=== PATIENT | female | born 1995 | race Caucasian/White ===

== ENCOUNTER 2020-03-12 09:02 | Inpatient (IN) ==
[2020-03-12] MEDS ORDERED: OXYTOCIN 30 UNITS/500 ML BAG IV PRN ×2 (09:22→09:24)
--- NOTE | 2020-03-12 09:30 | History & Physical Report ---
Date of Service March 12, 2020 Assessment & Plan (1) Spontaneous rupture of amniotic membranes: 24 yo at 40 wks with SROM this morning at 5 am VSS Afebrile GBS negative Regular ctxs but does not feel them Discussed augmentation with pitocin, she agrees Plan to admit, monitor, IVF bolus, labs and then reevaluate History of Present Illness Primary Care Provider: NO PCP Patient is a 24 yo at 40 wks who has been leaking clear fluids since 5 am No VB No ctxs / abd pain/ fever/ chills/ N&V +FM's Her has been uncomplicated GBS negative Patient History Social History (Updated 03/12/20 @ 09:26 by Maurilio Gilman MD) Smoking Status: Never smoker Hx Alcohol Use: No Hx Substance Use: No 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 No h/o STD's Review of Systems All systems reviewed & are unremarkable except as noted in HPI & below Physical Exam Constitutional: WD/WN, vitals as above well developed and well nourished Comfortable Gastrointestinal (Abdomen): normal bowel sounds, soft, nontender, no hepatosplenomegaly (gravid) Genitourinary: normal external appearance Manual OB Exam: + cervical dilation fingertip (0.5 cm), + cervical effacement 70%, + station -2 and + amniotic fluid (grossly leaking) nitrazine positive OB Exam Monitor Tracing: + external uterine monitor used (ctxs q 2-3 min, she does not feel them) and + category I (minimal to moderate variability, no accels yet, no decels) Results & Data Vital Signs (Past 12 Hours) Vital Signs Pulse BP 03/12/20 09:08 86 132/89 Code Status & VTE Plan VTE Prophylaxis Plan VTE Prophylaxis will be ordered: Yes
[2020-03-12 09:50] LABS: Hematocrit (blood only) 35.4 % (37-47); Hemoglobin 12.1 g/dL (12.0-16.0); Mean Corpuscular Hemoglobin 31.4 pg (25-34); Mean Corpuscular Volume 91.9 fL (80-100); Mean Platelet Volume 10.2 fL (7.4-10.4); Platelet Count 258 K/uL (130-400); RDW Coefficient of Variation 13.3 % (11.5-14.5); RDW Standard Deviation 44.4 fL (36.4-46.3); Red Blood Count 3.85 M/uL (4.2-5.4); White Blood Count 9.53 K/uL (4.8-10.8)
[2020-03-12] MEDS: LACTATED RINGER'S 1,000 ML IV PRN ×3 (09:57→19:34)
[2020-03-12 10:02] LABS: Mean Corpuscular Hgb Conc 34.2 g/dL (32-36)
[2020-03-12 10:09] LABS: Alanine Aminotransferase 27 U/L (12-78); Albumin Level 2.8 gm/dl (3.4-5.0); Aspartate Aminotransferase 19 U/L (15-37); BUN Creatinine Ratio 9.2 (10-20); Blood Urea Nitrogen 7 mg/dl (7-18); Calcium 9.9 mg/dl (8.5-10.1); Carbon Dioxide 24 mmol/L (21-32); Chloride 107 mmol/L (98-107); Est GFR (African American) 121.6; Est GFR (Non-African American) 104.9; Glucose 73 mg/dl (70-99); Potassium 3.9 mmol/L (3.5-5.1); Sodium 137 mmol/L (136-145)
[2020-03-12 10:12] LABS: Albumin Globulin Ratio 0.7 (0.9-2); Alkaline Phosphatase 226 U/L (45-117); Bilirubin,Total 0.4 mg/dl (0.2-1); Globulin 3.9 gm/dl (2.5-4.0); Total Protein 6.7 gm/dl (6.4-8.2)
[2020-03-12] MEDS ORDERED: PATIENT'S ALLERGY INFO NEEDS ENTERED SCH (10:45)
--- NOTE | 2020-03-12 14:54 | Obstetrical Progress Note ---
Date of Service March 12, 2020 Assessment & Plan Admission and Anticipated Discharge Date Admission Date: March 12, 2020 Subjective Patient is reevaluated She feels well, pain is minimal, 2-3/10, still leaking clear fluids FHR categ I [place]: cytxs q 2-3 min, pitocin is at 8 miu/min VE; tight 1 cm/ 70%/ -1, central Continue to monitor closely SCD's Results & Data ([facility]) Vital Signs (Past 12 Hours) Vital Signs Temp Pulse Resp BP 03/12/20 14:20 18 03/12/20 14:17 93 H 131/85 03/12/20 14:15 37.0 C 18 03/12/20 13:50 18 03/12/20 13:20 18 03/12/20 13:01 37.1 C 86 20 138/84 03/12/20 12:50 18 03/12/20 12:20 18 03/12/20 12:05 75 18 133/79 03/12/20 11:50 18 03/12/20 11:30 18 03/12/20 11:20 18 03/12/20 11:01 80 119/76 03/12/20 11:00 37.1 C 18 03/12/20 10:28 18 03/12/20 10:11 75 123/72 03/12/20 09:58 78 132/81 03/12/20 09:50 18 03/12/20 09:08 86 132/89 03/12/20 09:07 37.0 C 18
[2020-03-12] MEDS: BUTORPHANOL TARTRATE 1 MG/ML VIAL IV PRN ×2 (16:04→19:25)
--- NOTE | 2020-03-12 21:05 | Obstetrical Progress Note ---
Date of Service March 12, 2020 Assessment & Plan Admission and Anticipated Discharge Date Admission Date: March 12, 2020 Subjective Patient is reevaluated She feels pain, She received Stadol IVX2 did not help much VE: 2-3 cm/ 80%/ -1, central She declined epidural for pain Discussed pain management during labor and safety of epidural She will think about it Results & Data ([facility]) Vital Signs (Past 12 Hours) Vital Signs Temp Pulse Resp BP Pulse Ox 03/12/20 20:59 82 99 03/12/20 20:54 78 100 03/12/20 20:49 63 97 03/12/20 20:44 82 96 03/12/20 20:39 81 92 03/12/20 20:34 77 100 03/12/20 20:29 91 H 100 03/12/20 20:24 87 100 03/12/20 20:19 72 96 03/12/20 20:14 88 93 03/12/20 20:09 84 93 03/12/20 20:04 87 97 03/12/20 20:00 18 03/12/20 19:59 81 85 L 03/12/20 19:54 92 H 96 03/12/20 19:51 76 139/86 03/12/20 19:49 101 H 96 03/12/20 19:45 85 116/73 03/12/20 19:44 81 94 03/12/20 19:39 88 124/74 95 03/12/20 19:35 68 128/76 03/12/20 19:34 94 H 92 03/12/20 19:29 75 99 03/12/20 19:28 72 130/73 03/12/20 19:24 66 98 03/12/20 19:06 36.9 C 83 18 133/80 03/12/20 18:50 18 03/12/20 18:29 18 03/12/20 18:28 88 121/77 03/12/20 18:20 18 03/12/20 17:50 18 03/12/20 17:41 37.1 C 80 18 126/76 03/12/20 17:20 18 03/12/20 16:53 67 18 118/75 03/12/20 16:50 18 03/12/20 16:20 18 03/12/20 16:08 81 118/70 03/12/20 16:04 18 03/12/20 15:56 18 03/12/20 15:50 18 03/12/20 15:20 18 03/12/20 15:01 81 142/81 H 03/12/20 15:00 37.1 C 18 03/12/20 14:50 18 03/12/20 14:49 18 03/12/20 14:20 18 03/12/20 14:17 93 H 131/85 03/12/20 14:15 37.0 C 18 03/12/20 13:50 18 03/12/20 13:20 18 03/12/20 13:01 37.1 C 86 20 138/84 03/12/20 12:50 18 03/12/20 12:20 18 03/12/20 12:05 75 18 133/79 03/12/20 11:50 18 03/12/20 11:30 18 03/12/20 11:20 18 03/12/20 11:01 80 119/76 03/12/20 11:00 37.1 C 18 03/12/20 10:28 18 03/12/20 10:11 75 123/72 03/12/20 09:58 78 132/81 03/12/20 09:50 18 03/12/20 09:08 86 132/89 03/12/20 09:07 37.0 C 18
[2020-03-12] MEDS ORDERED: fentaNYL citrate 100 MCG/2 ML VIAL ONE (21:14)
[2020-03-12] MEDS ORDERED: ePHEDrine sulfate 50 MG/ML AMP ONE (21:14)
[2020-03-12] MEDS ORDERED: BUPIVACAINE 0.25% 30 ML VIAL ONE (21:14)
[2020-03-12] MEDS ORDERED: fentaNYL 2MCG/ML ROPIV 1.25MG/ML 100 ML BAG EPI ONE (21:15)
[2020-03-12] MEDS ORDERED: NALBUPHINE HCL INJ 10 MG/ML AMP IV PRN (21:19)
[2020-03-12] MEDS ORDERED: NALOXONE HCL 0.4 MG/1 ML VIAL/CARP IV PRN (21:19)
[2020-03-12] MEDS ORDERED: ePHEDrine sulfate 50 MG/ML AMP IV PRN (21:19)
[2020-03-12] MEDS ORDERED: PROMETHAZINE HCL 6.25 MG in SODIUM CHLORIDE 0.9% 50 ML IV PRN (21:19)
[2020-03-12] MEDS ORDERED: NALOXONE HCL 1 MG in SODIUM CHLORIDE 0.9% 1000ML 1,000 ML IV PRN (21:19)
[2020-03-12] MEDS ORDERED: ONDANSETRON INJ 2 MG/ML 2 ML VIAL IV PRN (21:19)
[2020-03-12] MEDS ORDERED: DiphenhydrAMINE HCL 50 MG/ML VIAL IV PRN (21:19)
--- NOTE | 2020-03-12 21:23 | Anesthesiology Consultation ---
Date of Service March 12, 2020 Assessment & Plan (1) Encounter for pre-operative examination: Chart Review Chart Review: Patient NOT seen in Pre Admission Testing and Acceptable Risk for Labor Epidural Consults Requested none ASA ASA2 Proposed Anesthesia Anesthesia Type: Labor Epidural Risk / Benefits Reviewed With: PT / POA / Parent / Guardian, Accepts Plan and Informed Consent Obtained History Height/Weight Height: 5 ft 7.75 in Weight: 83.915 kg Allergies Allergy/AdvReac Type Severity Reaction Status Date / Time Sulfa (Sulfonamide Allergy Unknown Verified 03/12/20 12:27 Antibiotics) Medications Home Medications Medication Instructions Recorded Confirmed Last Taken vit no.[id number] 1 tab PO HS 03/12/20 03/12/20 03/11/20 22:30 [ Vitamin] Active Medications Generic Name Dose Route Start Last Admin Trade Name Freq PRN Reason Stop Dose Admin Butorphanol Tartrate 1 mg 03/12/20 09:22 03/12/20 19:25 Stadol IV 04/11/20 09:21 1 mg Q3HWA PRN Administration Pain Lactated Ringer's 1,000 mls @ 150 mls/hr 03/12/20 09:22 03/12/20 19:34 Lr IV 03/14/20 09:21 150 mls/hr .Q6H40M PRN Administration L&D Protocol Protocol Oxytocin 30 units in 500 mls @ 14 mls/hr 03/12/20 09:24 03/12/20 16:53 Pitocin IV 03/14/20 09:23 0.84 units/hr .Q24H PRN 14 mls/hr Labor Induction/Augmentation Titration Protocol 0.84 UNITS/HR NPO Date Last Intake of Fluids: 03/12/20 Time Last Intake of Fluids: 21:00 Date Last Intake of Solids: 03/12/20 Time Last Intake of Solids: 07:00 Exercise / Class Metabolic Activity II 4-5 Yardwork/Stairs/Walk up hill Past Anesthesia History No Hx of Anesthesia Complications and No Family Hx of Anesthesia Complications History of PONV No Hx of PONV and No Hx of Motion Sickness Social History Smoking Status: Never smoker Hx Alcohol Use: No Hx Substance Use: No Physical Exam Vital Signs Last Vital Signs Temp 36.8 C 03/12/20 21:03 Pulse 87 03/12/20 21:41 Resp 18 03/12/20 21:03 BP 110/59 L 03/12/20 21:41 Pulse Ox 97 03/12/20 21:39 ENMT Mouth: no dentition abnormality Thyromental Distance: > or= 3.5 Finger Breadths Mallampati Class: II Neck normal visual inspection Respiratory normal respiratory effort Auscultation: lungs clear to auscultation bilaterally Cardiovascular Rate/Rhythm: regular rate and regular rhythm Psychiatric Orientation: alert Testing Laboratory Results 03/12/20 09:34 03/12/20 09:34
[2020-03-12] MEDS: CEFAZOLIN 2000MG 2,000 MG/15 ML SYR IV SCH (22:27)
[2020-03-13] MEDS: LACTATED RINGER'S 1,000 ML IV PRN ×2 (00:23→06:42)
--- NOTE | 2020-03-13 04:40 | Obstetrical Progress Note ---
Date of Service March 13, 2020 Assessment & Plan Admission and Anticipated Discharge Date Admission Date: March 12, 2020 Subjective Patient had epidural for pain and has been comfortable [place] pressure and wanted to push VE; 10/100%/+1, small caput, LOP, has been pushing for the last 4 ctxs FHR 150's with moderate to marked variability Continue to monitor and pushing Results & Data ([facility]) Vital Signs (Past 12 Hours) Vital Signs Temp Pulse Resp BP Pulse Ox 03/13/20 04:34 92 H 97 03/13/20 04:31 37.1 C 88 130/68 03/13/20 04:29 123 H 94 03/13/20 04:24 91 H 97 03/13/20 04:19 97 H 98 03/13/20 04:14 95 H 98 03/13/20 04:10 88 127/74 03/13/20 04:09 96 H 99 03/13/20 04:04 84 96 03/13/20 03:59 90 95 03/13/20 03:56 82 116/67 03/13/20 03:54 93 H 95 03/13/20 03:49 84 97 03/13/20 03:48 96 H 87 L 03/13/20 03:44 90 95 03/13/20 03:39 93 H 111/65 95 03/13/20 03:34 84 95 03/13/20 03:30 18 03/13/20 03:29 92 H 98 03/13/20 03:25 90 116/61 03/13/20 03:24 84 96 03/13/20 03:19 87 98 03/13/20 03:14 95 H 98 03/13/20 03:10 88 120/71 03/13/20 03:09 90 100 03/13/20 03:04 101 H 97 03/13/20 03:01 36.7 C 03/13/20 03:00 18 03/13/20 02:59 108 H 100 03/13/20 02:54 93 H 121/69 100 03/13/20 02:49 90 100 03/13/20 02:44 72 99 03/13/20 02:40 75 117/67 03/13/20 02:39 72 100 03/13/20 02:34 84 96 03/13/20 02:30 18 03/13/20 02:29 81 96 03/13/20 02:26 73 110/58 L 03/13/20 02:24 77 97 03/13/20 02:19 96 H 94 03/13/20 02:14 77 93 03/13/20 02:11 76 106/56 L 03/13/20 02:09 83 96 03/13/20 02:04 80 94 03/13/20 02:00 18 03/13/20 01:59 76 94 03/13/20 01:56 74 92/45 L 03/13/20 01:54 76 94 03/13/20 01:49 82 94 03/13/20 01:44 78 95 03/13/20 01:40 73 112/55 L 03/13/20 01:39 75 97 03/13/20 01:34 89 98 03/13/20 01:30 18 03/13/20 01:29 78 92 03/13/20 01:24 79 106/57 L 93 03/13/20 01:19 80 93 03/13/20 01:14 91 H 96 03/13/20 01:13 37.0 C 03/13/20 01:12 78 107/59 L 03/13/20 01:10 85 101/56 L 03/13/20 01:09 90 96 03/13/20 01:04 79 92 03/13/20 01:00 18 03/13/20 00:59 82 92 03/13/20 00:55 73 123/60 03/13/20 00:54 80 96 03/13/20 00:49 85 97 03/13/20 00:44 77 95 03/13/20 00:41 77 122/71 03/13/20 00:39 88 97 03/13/20 00:34 80 98 03/13/20 00:30 18 03/13/20 00:29 77 98 03/13/20 00:24 76 98 03/13/20 00:19 74 96 03/13/20 00:14 78 99 03/13/20 00:09 82 100/54 L 95 03/13/20 00:04 75 95 03/13/20 00:00 18 03/12/20 23:59 80 94 03/12/20 23:54 77 100/57 L 95 03/12/20 23:49 78 98 03/12/20 23:44 80 99 03/12/20 23:40 72 98/61 L 03/12/20 23:39 82 99 03/12/20 23:34 80 97 03/12/20 23:30 18 03/12/20 23:29 75 99 03/12/20 23:25 82 130/63 03/12/20 23:24 84 100 03/12/20 23:19 74 99 03/12/20 23:14 92 H 100 03/12/20 23:09 88 107/59 L 100 03/12/20 23:07 36.9 C 03/12/20 23:04 106 H 100 03/12/20 23:00 18 03/12/20 22:59 77 100 03/12/20 22:54 83 107/59 L 100 03/12/20 22:49 74 98 03/12/20 22:44 80 99 03/12/20 22:40 78 104/57 L 03/12/20 22:39 78 100 03/12/20 22:34 89 100 03/12/20 22:30 18 03/12/20 22:29 85 100 03/12/20 22:25 80 105/54 L 03/12/20 22:24 86 100 03/12/20 22:19 74 100 03/12/20 22:15 18 03/12/20 22:14 90 100 03/12/20 22:10 77 110/56 L 03/12/20 22:09 79 99 03/12/20 22:04 87 99 03/12/20 22:00 18 03/12/20 21:59 80 100 03/12/20 21:56 18 03/12/20 21:54 93 H 100 03/12/20 21:52 85 113/57 L 03/12/20 21:50 18 03/12/20 21:49 98 H 99 03/12/20 21:45 90 18 108/57 L 03/12/20 21:44 90 98 03/12/20 21:43 83 105/56 L 03/12/20 21:41 87 110/59 L 03/12/20 21:39 107 H 108/58 L 97 03/12/20 21:37 82 116/59 L 03/12/20 21:35 80 122/63 03/12/20 21:34 94 H 97 06/02/20 21:33 79 135/79 03/12/20 21:31 77 129/77 03/12/20 21:29 78 96 03/12/20 21:24 90 96 03/12/20 21:19 90 95 03/12/20 21:14 84 93 03/12/20 21:09 68 100 03/12/20 21:04 72 100 03/12/20 21:03 36.8 C 78 18 139/75 03/12/20 20:59 82 99 03/12/20 20:54 78 100 03/12/20 20:49 63 97 03/12/20 20:44 82 96 03/12/20 20:39 81 92 03/12/20 20:34 77 100 03/12/20 20:29 91 H 100 03/12/20 20:24 87 100 03/12/20 20:19 72 96 03/12/20 20:14 88 93 03/12/20 20:09 84 93 03/12/20 20:04 87 97 03/12/20 20:00 18 03/12/20 19:59 81 85 L 03/12/20 19:54 92 H 96 03/12/20 19:51 76 139/86 03/12/20 19:49 101 H 96 03/12/20 19:45 85 116/73 03/12/20 19:44 81 94 03/12/20 19:39 88 124/74 95 03/12/20 19:35 68 128/76 03/12/20 19:34 94 H 92 03/12/20 19:29 75 99 03/12/20 19:28 72 130/73 03/12/20 19:24 66 98 03/12/20 19:06 36.9 C 83 18 133/80 03/12/20 18:50 18 03/12/20 18:29 18 03/12/20 18:28 88 121/77 03/12/20 18:20 18 03/12/20 17:50 18 03/12/20 17:41 37.1 C 80 18 126/76 03/12/20 17:20 18 03/12/20 16:53 67 18 118/75 03/12/20 16:50 18
[2020-03-13] MEDS: fentaNYL 2MCG/ML ROPIV 1.25MG/ML 100 ML BAG EPI PRN ×2 (05:18→12:11)
[2020-03-13] MEDS ORDERED: CALCIUM CARBONATE 500 MG CHEWABLE TAB PO PRN (05:45)
[2020-03-13] MEDS ORDERED: CALCIUM CARBONATE 500 MG CHEWABLE TAB ONE (05:46)
[2020-03-13] MEDS ORDERED: ONDANSETRON INJ 2 MG/ML 2 ML VIAL IV PRN (06:01)
--- NOTE | 2020-03-13 06:01 | Obstetrical Progress Note ---
Date of Service March 13, 2020 Assessment & Plan Admission and Anticipated Discharge Date Admission Date: March 12, 2020 Subjective Patient is reevaluated he pushed for about an hour and half and feels exhausted, desires to labor down and rest for a little bit FHR categ I Continue to monitor Will start pushing when she feels more urge to push Results & Data ([facility]) Vital Signs (Past 12 Hours) Vital Signs Temp Pulse Resp BP Pulse Ox 03/13/20 05:56 80 135/77 03/13/20 05:54 84 96 03/13/20 05:49 84 98 03/13/20 05:44 80 90 03/13/20 05:41 79 137/80 03/13/20 05:39 89 92 03/13/20 05:34 86 99 03/13/20 05:29 84 95 03/13/20 05:25 85 131/61 03/13/20 05:24 89 96 03/13/20 05:19 101 H 98 03/13/20 05:15 18 03/13/20 05:14 97 H 95 03/13/20 05:11 82 135/60 03/13/20 05:09 92 H 92 03/13/20 05:04 92 H 93 03/13/20 05:00 15 03/13/20 04:59 91 H 97 03/13/20 04:55 89 123/62 03/13/20 04:54 116 H 99 03/13/20 04:49 85 97 03/13/20 04:45 18 03/13/20 04:44 96 H 96 03/13/20 04:39 94 H 142/64 H 97 03/13/20 04:34 92 H 97 03/13/20 04:31 37.1 C 88 130/68 03/13/20 04:30 18 03/13/20 04:29 123 H 94 03/13/20 04:24 91 H 97 03/13/20 04:19 97 H 98 03/13/20 04:14 95 H 98 03/13/20 04:10 88 127/74 03/13/20 04:09 96 H 99 03/13/20 04:04 84 96 03/13/20 04:00 18 03/13/20 03:59 90 95 03/13/20 03:56 82 116/67 03/13/20 03:54 93 H 95 03/13/20 03:49 84 97 03/13/20 03:48 96 H 87 L 03/13/20 03:44 90 95 03/13/20 03:39 93 H 111/65 95 03/13/20 03:34 84 95 03/13/20 03:30 18 03/13/20 03:29 92 H 98 03/13/20 03:25 90 116/61 03/13/20 03:24 84 96 03/13/20 03:19 87 98 03/13/20 03:14 95 H 98 03/13/20 03:10 88 120/71 03/13/20 03:09 90 100 03/13/20 03:04 101 H 97 03/13/20 03:01 36.7 C 03/13/20 03:00 18 03/13/20 02:59 108 H 100 03/13/20 02:54 93 H 121/69 100 03/13/20 02:49 90 100 03/13/20 02:44 72 99 03/13/20 02:40 75 117/67 03/13/20 02:39 72 100 03/13/20 02:34 84 96 03/13/20 02:30 18 03/13/20 02:29 81 96 03/13/20 02:26 73 110/58 L 03/13/20 02:24 77 97 03/13/20 02:19 96 H 94 03/13/20 02:14 77 93 03/13/20 02:11 76 106/56 L 03/13/20 02:09 83 96 03/13/20 02:04 80 94 03/13/20 02:00 18 03/13/20 01:59 76 94 03/13/20 01:56 74 92/45 L 03/13/20 01:54 76 94 03/13/20 01:49 82 94 03/13/20 01:44 78 95 03/13/20 01:40 73 112/55 L 03/13/20 01:39 75 97 03/13/20 01:34 89 98 03/13/20 01:30 18 03/13/20 01:29 78 92 03/13/20 01:24 79 106/57 L 93 03/13/20 01:19 80 93 03/13/20 01:14 91 H 96 03/13/20 01:13 37.0 C 03/13/20 01:12 78 107/59 L 03/13/20 01:10 85 101/56 L 03/13/20 01:09 90 96 03/13/20 01:04 79 92 03/13/20 01:00 18 03/13/20 00:59 82 92 03/13/20 00:55 73 123/60 03/13/20 00:54 80 96 03/13/20 00:49 85 97 03/13/20 00:44 77 95 03/13/20 00:41 77 122/71 03/13/20 00:39 88 97 03/13/20 00:34 80 98 03/13/20 00:30 18 03/13/20 00:29 77 98 03/13/20 00:24 76 98 03/13/20 00:19 74 96 03/13/20 00:14 78 99 03/13/20 00:09 82 100/54 L 95 03/13/20 00:04 75 95 03/13/20 00:00 18 03/12/20 23:59 80 94 03/12/20 23:54 77 100/57 L 95 03/12/20 23:49 78 98 03/12/20 23:44 80 99 02 23:40 72 98/61 L 03/12/20 23:39 82 99 03/12/20 23:34 80 97 03/12/20 23:30 18 03/12/20 23:29 75 99 03/12/20 23:25 82 130/63 03/12/20 23:24 84 100 03/12/20 23:19 74 99 03/12/20 23:14 92 H 100 03/12/20 23:09 88 107/59 L 100 03/12/20 23:07 36.9 C 03/12/20 23:04 106 H 100 03/12/20 23:00 18 03/12/20 22:59 77 100 03/12/20 22:54 83 107/59 L 100 03/12/20 22:49 74 98 03/12/20 22:44 80 99 03/12/20 22:40 78 104/57 L 03/12/20 22:39 78 100 03/12/20 22:34 89 100 03/12/20 22:30 18 03/12/20 22:29 85 100 03/12/20 22:25 80 105/54 L 03/12/20 22:24 86 100 03/12/20 22:19 74 100 03/12/20 22:15 18 03/12/20 22:14 90 100 03/12/20 22:10 77 110/56 L 03/12/20 22:09 79 99 03/12/20 22:04 87 99 03/12/20 22:00 18 03/12/20 21:59 80 100 03/12/20 21:56 18 03/12/20 21:54 93 H 100 03/12/20 21:52 85 113/57 L 03/12/20 21:50 18 03/12/20 21:49 98 H 99 03/12/20 21:45 90 18 108/57 L 03/12/20 21:44 90 98 03/12/20 21:43 83 105/56 L 03/12/20 21:41 87 110/59 L 03/12/20 21:39 107 H 108/58 L 97 03/12/20 21:37 82 116/59 L 03/12/20 21:35 80 122/63 03/12/20 21:34 94 H 97 03/12/20 21:33 79 135/79 03/12/20 21:31 77 129/77 03/12/20 21:29 78 96 03/12/20 21:24 90 96 03/12/20 21:19 90 95 03/12/20 21:14 84 93 03/12/20 21:09 68 100 03/12/20 21:04 72 100 03/12/20 21:03 36.8 C 78 18 139/75 03/12/20 20:59 82 99 03/12/20 20:54 78 100 03/12/20 20:49 63 97 03/12/20 20:44 82 96 03/12/20 20:39 81 92 03/12/20 20:34 77 100 03/12/20 20:29 91 H 100 03/12/20 20:24 87 100 03/12/20 20:19 72 96 03/12/20 20:14 88 93 03/12/20 20:09 84 93 03/12/20 20:04 87 97 03/12/20 20:00 18 06/02/20 19:59 81 85 L 03/12/20 19:54 92 H 96 03/12/20 19:51 76 139/86 03/12/20 19:49 101 H 96 03/12/20 19:45 85 116/73 03/12/20 19:44 81 94 03/12/20 19:39 88 124/74 95 03/12/20 19:35 68 128/76 03/12/20 19:34 94 H 92 03/12/20 19:29 75 99 03/12/20 19:28 72 130/73 03/12/20 19:24 66 98 03/12/20 19:06 36.9 C 83 18 133/80 03/12/20 18:50 18 03/12/20 18:29 18 03/12/20 18:28 88 121/77 03/12/20 18:20 18
[2020-03-13] MEDS: CEFAZOLIN 2000MG 2,000 MG/15 ML SYR IV SCH (06:22)
[2020-03-13] MEDS ORDERED: METHYLERGONOVINE MALEATE 0.2 MG/ML AMP ONE (11:45)
--- NOTE | 2020-03-13 11:45 | History and Physical Report ---
DATE OF ADMISSION: 03/12/2020 CHIEF COMPLAINT: Arrest of descent of labor, term at 40 weeks 1 day, ruptured membranes. HISTORY OF PRESENT ILLNESS: The patient was a 1, para 0. She was admitted 1 day over her expected date of confinement, was 1 cm. She was augmented with IV Pitocin. She went to full dilatation. She pushed for 3-1/2 hours plus. She has brought the head down to a +1 station with the position being right occiput anterior. She requests an attempt at operative delivery. I explained to her that I could apply the forceps and attempt to deliver the child with forceps; there are certain risks associated with it, but we would not use an excessive amount of pull. PAST MEDICAL HISTORY: ALLERGIES: SHE IS ALLERGIC TO SULFA. PAST SURGICAL HISTORY: No previous surgery. No history of rheumatic fever, heart disease, heart murmur, diabetes, or tuberculosis. SOCIAL HISTORY: No smoking, no alcohol intake. Works at home. FAMILY HISTORY: Mom is 51, in good health. Father 57, in good health. One sister in good health. REVIEW OF SYSTEMS: HEAD: No symptoms of frequent or severe headaches. EYES: No symptoms of blurred vision or double vision. EARS: No symptoms of frequent ear infections or difficulty hearing. NOSE: No symptoms of frequent nosebleeds or difficulty breathing through her nose. THROAT: No symptoms of frequent or severe sore throat or difficulty swallowing. PHYSICAL EXAMINATION: GENERAL: Well-developed, well-nourished 24-year-old white female, alert, oriented x3 and cooperative. HEART: Had regular rhythm. S1, S2 are normal. LUNGS: Clear to auscultation and percussion. ABDOMEN: Term size fetus. MUSCULOSKELETAL: No calf tenderness, no CVA tenderness. PELVIC: Vertex presentation. Moderate amount of molding, +1 station, right occiput anterior position. IMPRESSIONS OF THIS CASE: Arrest of labor, term , premature rupture of membranes.
[2020-03-13] MEDS ORDERED: CARBOPROST TROMETHAMINE 250 MCG/ML AMPUL ONE (11:47)
[2020-03-13] MEDS ORDERED: miSOPROStoL 200 MCG TAB ONE (12:34)
[2020-03-13] MEDS ORDERED: HYDROCORTISONE ACETATE 25 MG SUPP PR PRN (12:42)
[2020-03-13] MEDS ORDERED: ACETAMINOPHEN 325 MG TAB PO PRN (12:42)
[2020-03-13] MEDS ORDERED: OXYTOCIN 30 UNITS/500 ML BAG IV PRN (12:42)
[2020-03-13] MEDS ORDERED: CARBOPROST TROMETHAMINE 250 MCG/ML AMPUL IM ONE (12:42)
[2020-03-13] MEDS ORDERED: bisacodyL 10 MG SUPP PR PRN (12:42)
[2020-03-13] MEDS ORDERED: SUPERCREAM 0.870% 15 GM JAR EXT PRN (12:42)
[2020-03-13] MEDS ORDERED: BENZOCAINE 20% AER SPR 82.5 GM CAN EXT PRN (12:42)
[2020-03-13] MEDS ORDERED: miSOPROStoL 200 MCG TAB PR ONE (12:42)
[2020-03-13] MEDS ORDERED: ACETAMINOPHEN W/CODEINE #3 1 TAB PO PRN (12:42)
[2020-03-13] MEDS ORDERED: DIPHTHERIA/TETANUS/PERTUSSIS 0.5 ML SYR/VIAL IM ONE (12:42)
[2020-03-13] MEDS ORDERED: METHYLERGONOVINE MALEATE 0.2 MG/ML AMP IM ONE (12:42)
--- NOTE | 2020-03-13 13:08 | Anesthesia Procedure Note ---
Date of Service March 13, 2020 Anesthesia Post Epidural Note Vital Signs Vital Signs: Temp Pulse Resp BP Pulse Ox 37.3 C 105 H 22 98/67 L 99 03/13/20 11:26 03/13/20 12:54 03/13/20 08:59 03/13/20 12:54 03/13/20 12:34 Pain Intensity Bilateral Abdomen: Pain Intensity: 2 Notes Mental Status: alert / awake / arousable and participated in evaluation Nausea / Vomiting: adequately controlled Pain: adequately controlled Airway Patency, RR, SpO2: stable & adequate BP & HR: stable & adequate Hydration State: stable & adequate Neuraxial Anesthesia: was administered and sensory block is resolving Anesthetic Complications: no major complications apparent and Pt Satisfied with anesthetic care Epidural: Removed without complications and With tip intact Notes: Epidural site clean, dry and intact. No signs of edema, erythema or bruising at insertion site. Pt instructed to request anesthesia if she has residual lower extremity numbness or if she develops lower extremity pain or weakness, back pain or headache.
--- NOTE | 2020-03-13 13:22 | Delivery Summary ---
DATE OF OPERATION: 03/12/2020 She is 1, para 1. Blood type is O positive, vaginal beta strep negative. She was admitted with spontaneous rupture of membranes at 40 weeks and 1 day, started on Pitocin, then had an epidural, she got good pain relief. Once she got to 24-hour moose, ruptured membranes she was given antibiotics. Then she started to push and pushed for a while. We let her labor down for another hour or so. She pushed again. She pushed all total about 3-1/2 hours, brought the head down to about +1. I position was GEORGE but actually turned out to be ROP with the occiput pointed to the left side. Once she had the head down to about a +1 she requested that I used some forceps for delivery. I used Poon forceps and got a good application and I did 2 pulls, the amount of time was in total about 60 second pull. Had a cut an episiotomy delivered a live male infant via left occiput posterior position. Position of the forceps on the head was good. Once I delivered the there was a nuchal cord which I reduced over the head, suctioned the mouth and the nose and the shoulders were delivered without difficulty. I let the cord pulse for 1 minute. I then clamped and cut it. I then collected cord blood. I used IV Pitocin, the placenta was removed intact. I immediately gave her 0.2 of Methergine in the upper thigh. Inspection of the vagina revealed a small right sulcus laceration at about 9 o'clock. I repaired this first with a running 2-0 Vicryl. She then had a fourth degree that went about 1/[address] up the posterior vagina. I anchored the top of the vaginal mucosa with a 2-0 Vicryl. I then used 3-0 chromic with interrupted U stitches to approximate the edges of the rectal mucosa out to beyond around the rectal sphincter. I then repaired in standard 3-layer closure. I then did a mid fascial closer with 3-0 Vicryl and brought together the fascia between the rectum and the vaginal mucosa and then I bolstered the posterior portion of the rectal sphincter capsule and then went in a circular fashion and sewed it like a donut placing the muscle next to each other and then making good approximation of the rectal sphincter capsule in a 360-degree fashion. After this was done in I then used a separate layer to approximate the vaginal mucosa with 2-0 heavy Vicryl out and to beyond the hymenal ring. I then used a separate suture to approximate the bulbocavernosus muscle, another separate suture to approximate the perineal body and then another separate suture to approximate the rectal sphincter mucosa. Following this, I used a running subcuticular suture to approximate the perineal skin edges. A deep suture of Vicryl and then the skin edges on the way up. I tied and then cut the suture. I palpated the vaginal mucosa. There was no hematoma formation with good approximation. Sponges were removed from the vagina. I did a rectovaginal examination. There was good approximation. You could also feel the rectal sphincter capsule was intact to palpation and then I inserted 800 mcg of Cytotec vaginally. Before inserting the Cytotec I did evacuate the uterus from some big blood clots. Following this, the patient tolerated the procedure well and left the OR in good condition. I attest to the content of the Intraoperative Record and any orders documented therein. Any exception s are noted below.
[2020-03-13] MEDS: IBUPROFEN 600 MG TAB PO PRN ×2 (13:51→20:06)
[2020-03-13] MEDS: OXYCODONE/ACETAMINOPHEN 5mg/325mg TAB PO PRN (15:30)
[2020-03-13] MEDS: DOCUSATE SODIUM 100 MG CAP PO SCH (21:06)
[2020-03-14] MEDS: IBUPROFEN 600 MG TAB PO PRN ×6 (00:25→23:12)
[2020-03-14] MEDS: OXYCODONE/ACETAMINOPHEN 5mg/325mg TAB PO PRN ×2 (00:26→03:57)
[2020-03-14] MEDS: CEFAZOLIN 2000MG 2,000 MG/15 ML SYR IV SCH (07:04)
[2020-03-14 07:07] LABS: Hematocrit (blood only) 22.1 % (37-47); Hemoglobin 7.5 g/dL (12.0-16.0); Mean Corpuscular Hemoglobin 31.6 pg (25-34); Mean Corpuscular Hgb Conc 33.9 g/dL (32-36); Mean Corpuscular Volume 93.2 fL (80-100); Mean Platelet Volume 9.9 fL (7.4-10.4); Platelet Count 210 K/uL (130-400); RDW Coefficient of Variation 13.5 % (11.5-14.5); RDW Standard Deviation 45.5 fL (36.4-46.3); Red Blood Count 2.37 M/uL (4.2-5.4); White Blood Count 13.76 K/uL (4.8-10.8)
--- NOTE | 2020-03-14 08:11 | Obstetrical Progress Note ---
Date of Service March 14, 2020 Assessment & Plan (1) Normal course: PPD #1 s/p Forcep delivery Pt doing well anticipate disc tomorrow Subjective Ambulation: ambulating normally Voiding: no voiding problems Passing Gas:: Yes Diet Tolerance:: regular diet Lochia:: Small Feeding Type:: breast feeding Review of Systems All systems reviewed & are unremarkable except as noted in HPI & below Physical Exam Constitutional WD/WN, vitals as above well developed and well nourished Eyes PERRL, conjunctivae normal, anicteric sclerae Neck trachea midline, no thyromegaly Respiratory normal respiratory effort, lungs clear to auscultation Auscultation: no crackles, no rales and no wheezes Cardiovascular RRR, no murmur, no edema Gastrointestinal (Abdomen) normal bowel sounds, soft, nontender, no hepatosplenomegaly Uterus is below umbilicus Musculoskeletal no cyanosis or clubbing, extremities motor strength 5/5 Skin no rashes, warm and dry Neurologic patellar DTR's 2+ bilat, sensation intact Psychiatric A+Ox3, euthymic affect Genitourinary normal external appearance Results & Data Vital Signs (Past 12 Hours) Vital Signs Temp Pulse Resp BP Pulse Ox 03/14/20 03:50 36.6 C 74 18 115/69 100 03/14/20 00:15 36.8 C 87 20 119/71 98
[2020-03-14] MEDS: PRENATAL VITAMIN 1 TAB PO SCH (08:34)
[2020-03-14] MEDS: DOCUSATE SODIUM 100 MG CAP PO SCH ×2 (08:34→19:47)
[2020-03-14] MEDS ORDERED: bisacodyL 5 MG TABEC PO SCH (20:00)
[2020-03-15 06:29] LABS: Hematocrit (blood only) 20.7 % (37-47); Hemoglobin 7.1 g/dL (12.0-16.0)
[2020-03-15] MEDS: PRENATAL VITAMIN 1 TAB PO SCH (08:03)
[2020-03-15] MEDS: IBUPROFEN 600 MG TAB PO PRN (08:03)
[2020-03-15] MEDS: DOCUSATE SODIUM 100 MG CAP PO SCH (08:03)
[2020-03-15] MEDS ORDERED: FERROUS SULFATE 325 MG TAB PO SCH (09:30)
--- NOTE | 2020-03-15 09:33 | Obstetrical Progress Note ---
Date of Service March 15, 2020 Assessment & Plan Admission and Anticipated Discharge Date Admission Date: March 12, 2020 Subjective Patient is seen and examined. She feels well, no complaints. Likes to be discharged today. Ambulating without dizziness Voiding without difficulty Tolerating regular diet with out N&V Bleeding is minimal No fever/ chills/ CP/ SOB/ N&V/ Leg pain Bottle feeding without problems Vital Signs Temp Pulse Resp BP Pulse Ox 03/15/20 08:00 36.4 C L 85 16 127/77 100 03/14/20 23:10 36.7 C 93 H 18 133/75 98 03/14/20 19:35 36.7 C 92 H 18 117/72 98 03/14/20 15:50 36.7 C 84 18 123/77 97 03/14/20 11:45 36.8 C 90 18 113/67 98 Intake and Output 03/14/20 03/15/20 03/15/20 22:59 06:59 14:59 Output Total 250 / 550 Balance -250 / -550 Output: Urine 250 / 250 Lab Results 03/12/20 03/12/20 03/14/20 Range/Units 09:34 09:34 06:23 WBC 9.53 13.76 H (4.8-10.8) K/uL RBC 3.85 L 2.37 L (4.2-5.4) M/uL Hgb 12.1 7.5 L D (12.0-16.0) g/dL Hct 35.4 L 22.1 L (37-47) % MCV 91.9 93.2 (80-100) fL MCH 31.4 31.6 (25-34) pg MCHC 34.2 33.9 (32-36) g/dL RDW Std Deviation 44.4 45.5 (36.4-46.3) fL RDW Coeff of Nguyen 13.3 13.5 (11.5-14.5) % Plt Count 258 210 (130-400) K/uL MPV 10.2 9.9 (7.4-10.4) fL Sodium 137 (136-145) mmol/L Potassium 3.9 (3.5-5.1) mmol/L Chloride 107 (98-107) mmol/L Carbon Dioxide 24 (21-32) mmol/L Anion Gap 6.0 (3-11) BUN 7 (7-18) mg/dl Creatinine 0.78 (0.6-1.2) mg/dl Est Cr Clr Drug Dosing Not Reportable Est GFR ( Amer) 121.6 Est GFR (Non-Af Amer) 104.9 BUN/Creatinine Ratio 9.2 L (10-20) Glucose 73 (70-99) mg/dl Calcium 9.9 (8.5-10.1) mg/dl Total Bilirubin 0.4 (0.2-1) mg/dl AST 19 (15-37) U/L ALT 27 (12-78) U/L Alkaline Phosphatase 226 H (45-117) U/L Total Protein 6.7 (6.4-8.2) gm/dl Albumin 2.8 L (3.4-5.0) gm/dl Globulin 3.9 (2.5-4.0) gm/dl Albumin/Globulin Ratio 0.7 L (0.9-2) 06/20 Range/Units 05:36 WBC (4.8-10.8) K/uL RBC (4.2-5.4) M/uL Hgb 7.1 L (12.0-16.0) g/dL Hct 20.7 L* (37-47) % MCV (80-100) fL MCH (25-34) pg MCHC (32-36) g/dL RDW Std Deviation (36.4-46.3) fL RDW Coeff of Nguyen (11.5-14.5) % Plt Count (130-400) K/uL MPV (7.4-10.4) fL Sodium (136-145) mmol/L Potassium (3.5-5.1) mmol/L Chloride (98-107) mmol/L Carbon Dioxide (21-32) mmol/L Anion Gap (3-11) BUN (7-18) mg/dl Creatinine (0.6-1.2) mg/dl Est Cr Clr Drug Dosing Est GFR ( Amer) Est GFR (Non-Af Amer) BUN/Creatinine Ratio (10-20) Glucose (70-99) mg/dl Calcium (8.5-10.1) mg/dl Total Bilirubin (0.2-1) mg/dl AST (15-37) U/L ALT (12-78) U/L Alkaline Phosphatase (45-117) U/L Total Protein (6.4-8.2) gm/dl Albumin (3.4-5.0) gm/dl Globulin (2.5-4.0) gm/dl Albumin/Globulin Ratio (0.9-2) PE: General: Alert, orientedx3, NAD Abd: soft, NT, fundus firm, below Umbilicus Perineum intact, no edema, Lochia rubra minimal Ext; NT, no edema AP: 24 yo s/p / forceps delivery, ppd# 2 VSS Afebrile doing well Anemic, asymptomatic: discussed blood transfusion vs po iron She desires PO iron and d/c today Discussed how to take iron and iron rich diet Repeat CBC this morning Continue routine care All questions were answered Results & Data ([facility]) Vital Signs (Past 12 Hours) Vital Signs Temp Pulse Resp BP Pulse Ox 03/15/20 08:00 36.4 C L 85 16 127/77 100 03/14/20 23:10 36.7 C 93 H 18 133/75 98
[2020-03-15 09:52] LABS: Basophils # (auto) 0.02 K/uL (0-0.2); Basophils % (auto) 0.2 %; Eosinophils % (auto) 0.9 %; Hematocrit (blood only) 23.2 % (37-47); Hemoglobin 7.8 g/dL (12.0-16.0); Immature Granulocytes # (auto) 0.07 K/uL (0.00-0.02); Immature Granulocytes % (auto) 0.6 %; Lymphocytes # (auto) 2.12 K/uL (1.2-3.4); Lymphocytes % (auto) 18.7 %; Mean Corpuscular Hemoglobin 31.5 pg (25-34); Mean Corpuscular Hgb Conc 33.6 g/dL (32-36); Mean Corpuscular Volume 93.5 fL (80-100); Mean Platelet Volume 9.6 fL (7.4-10.4); Monocytes # (auto) 0.55 K/uL (0.11-0.59); Monocytes % (auto) 4.9 %; Neutrophils # (auto) 8.47 K/uL (1.4-6.5); Neutrophils % (auto) 74.7 %; Platelet Count 247 K/uL (130-400); RDW Coefficient of Variation 13.6 % (11.5-14.5); RDW Standard Deviation 46.7 fL (36.4-46.3); Red Blood Count 2.48 M/uL (4.2-5.4); White Blood Count 11.33 K/uL (4.8-10.8)
[2020-03-15 10:18] LABS: Hypochromasia Present
--- NOTE | 2020-03-15 10:26 | Obstetrical Progress Note ---
Date of Service March 15, 2020 Assessment & Plan Admission and Anticipated Discharge Date Admission Date: March 12, 2020 Subjective 03/15/20 03/15/20 Range/Units 09:40 05:36 WBC 11.33 H (4.8-10.8) K/uL RBC 2.48 L (4.2-5.4) M/uL Hgb 7.8 L 7.1 L (12.0-16.0) g/dL Hct 23.2 L 20.7 L* (37-47) % MCV 93.5 (80-100) fL MCH 31.5 (25-34) pg MCHC 33.6 (32-36) g/dL RDW Std Deviation 46.7 H (36.4-46.3) fL RDW Coeff of Nguyen 13.6 (11.5-14.5) % Plt Count 247 (130-400) K/uL MPV 9.6 (7.4-10.4) fL Immature Gran % (Auto) 0.6 % Neut % (Auto) 74.7 % Lymph % (Auto) 18.7 % Meriwether % (Auto) 4.9 % Eos % (Auto) 0.9 % Baso % (Auto) 0.2 % Immature Gran # (Auto) 0.07 H (0.00-0.02) K/uL Neut # (Auto) 8.47 H (1.4-6.5) K/uL Lymph # (Auto) 2.12 (1.2-3.4) K/uL Meriwether # (Auto) 0.55 (0.11-0.59) K/uL Eos # (Auto) 0.10 (0-0.5) K/uL Baso # (Auto) 0.02 (0-0.2) K/uL Hypochromasia Present Repeat CBC as above Patient asymptomatic and desires D/C Results & Data ([facility]) Vital Signs (Past 12 Hours) Vital Signs Temp Pulse Resp BP Pulse Ox 03/15/20 08:00 36.4 C L 85 16 127/77 100 03/14/20 23:10 36.7 C 93 H 18 133/75 98
--- NOTE | 2020-03-26 13:52 | Discharge Summary (DS) ---
Niki Rosa was brought in for induction. She eventually went to full dilatation with uterine stimulation and she pushed for over 3 hours. She essentially pushed to exhaustion. She had the head brought down to +1 station, it was OP, slightly ROP. The patient requested that I use some type of assistance to help deliver her vaginally. At this point, I agreed. I felt the head was low enough and I could feel the sutures. I applied Poon forceps, got a good application. I pulled twice with a total pulling of under 60 seconds and I delivered a live infant via direct OP position. The infant's head popped out. She had a fourth degree laceration. Infant was delivered without difficulty after that, Apgars were good. The load mixer was in attendance. Cord was clamped and cut. Cord blood was taken. Placenta was removed manually. Pitocin and other uterotonics were given to contract the uterus. Inspection revealed a fourth degree laceration through the sphincter and about [address] the vagina, identified all the anatomy and I proceeded to do a three-layered closure. I did U stitches that approximated the rectal mucosa out to beyond the rectal sphincter. I then went back after tagging the vaginal defect at its apex. I did a separate layer where I approximated the rectovaginal septum with a 2-0 Vicryl and I carried this approximation around the rectal sphincter, sewing it in a donut-shaped fashion and approximating the capsule and pushing the muscle into the capsule. Once I had a good approximation of the rectal sphincter capsule and the rectovaginal septum as a separate layer, I went back to the top and approximated the vaginal mucosa out to beyond the hymenal ring, did a deep suture to approximate the bulbocavernosus muscles, several deep sutures to approximate the perineal body and then a running subcuticular suture to approximate the rectovaginal septum skin. Postoperatively, she did run into some urinary retention, we had to put in a Magallon for a day or two, it was eventually taken out. She was eventually discharged to be followed in home and office. Her preoperative hemoglobin had been 12.1, postoperatively hemoglobin fell to 7.8. At the time of discharge, she was asymptomatic. It had risen from the previous day and she was going to be followed in the [facility].
== END 2020-03-15 11:55 | disposition home or self-care (01) | DRG 768 ==
LOC: OPB 09:02 → 4S1 09:06 → 4S2 03-13 15:53

== ENCOUNTER 2024-04-11 12:39 | Inpatient (IN) ==
[2024-04-11] MEDS ORDERED: ACETAMINOPHEN 500 MG TAB PO PRN (12:59)
[2024-04-11] MEDS ORDERED: LIDOCAINE 1% LOCAL 20 ML VIAL INFIL PRN (12:59)
--- NOTE | 2024-04-11 13:11 | History & Physical Report ---
Date of Service April 11, 2024 Assessment & Plan (1) Positive GBS test: (2) Spontaneous rupture of amniotic membranes: Plan: 28-year-old -0-0-1 at 39 weeks and 3 days of gestation presenting today with spontaneous rupture of membranes with favorable cervix, Vital signs stable afebrile, heart rate reassuring, GBS positive, Plan to admit, monitor, labs, induction with oxytocin per protocol, epidural when patient request, All questions were answered. History of Present Illness Chief Complaint: Leakage of fluids and bloody mucus Primary Care Provider: NO PCP patient is a 28-year-old -0-0-1 at 39 weeks and 2 days of gestation who has been feeling contractions since yesterday when they were not regular. She states she has been passing pinkish mucus for the last 3 days but this morning it was more and she felt that on her underwear. She was in the office for routine OB visit and had speculum exam which was positive for Nitrazine and ROM plus. she has small amount of leakage on the pantiliner on the way here and Nitrazine is positive No Regular contractions, no active bleeding, no abdominal pain. She reports good movements. Her has been uncomplicated except, 1. GBS positive, 2. History of forceps delivery and 4 degree perineal laceration on March 2020. Patient states she healed well no problem with rectal sphincter control, no leakage of stool or flatus. Patient states she is 99.9% against and has been planning to have vaginal . Allergies Allergy/AdvReac Type Severity Reaction Status Date / Time Sulfa (Sulfonamide Allergy Unknown Verified 03/25/20 10:20 Antibiotics) Home Medications Medication Instructions Recorded Confirmed Type ferrous sulfate 325 mg (65 mg 325 mg PO BIDM #60 tabs 03/15/20 04/11/24 Rx iron) tablet,delayed release vits no.124-ferrous fum 1 tab PO DAILY@08 #60 tabs 03/15/20 04/11/24 Rx 27 mg iron-folic acid 800 mcg tablet ( Vitamin) Patient History Medical History Mouth lesion Excise/repair Fourth degree perineal laceration during delivery Family History Father Rheumatoid aortitis Grandmother (Maternal) Renal failure Grandfather (Paternal) Muscular dystrophy Uncle Heart disorder Mother Hypertension Grandmother (Maternal) Hypertension Aunt Muscular dystrophy Grandfather (Paternal) No problems noted. 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 Review of Systems as per Subjective / HPI Physical Exam Constitutional: WD/WN, vitals as above Gastrointestinal (Abdomen): normal bowel sounds, soft, nontender, no hepatosplenomegaly ( gravid, Oswaldo 7 to 8 pounds) Genitourinary: normal external appearance Speculum/Bimanual Exam: normal appearance of the vagina ( no pulling) OB Exam Abdomen: + vertex Manual OB Exam: + cervical dilation 3 cm, + cervical effacement 60% and + station -2 ( no amniotic bag) nitrazine positive Ferning positive
[2024-04-11 14:15] LABS: Hematocrit (blood only) 32.1 % (37.0-47.0); Hemoglobin 10.9 g/dl (12.0-16.0); Mean Corpuscular Volume 88.4 fL (80.0-100.0); Mean Platelet Volume 10.1 fL (9.4-12.4); Platelet Count 234 K/uL (130-400); RDW Coefficient of Variation 13.1 % (11.5-14.5); RDW Standard Deviation 42.6 fL (36.4-46.3); Red Blood Count 3.63 M/uL (4.20-5.40); White Blood Count 9.95 K/ul (4.8-10.8)
[2024-04-11] MEDS: LACTATED RINGER'S 1,000 ML IV PRN (14:22)
[2024-04-11] MEDS: PENICILLIN GK 6 MU in DEXTROSE 5% 250 ML IV STA (14:27)
[2024-04-11] MEDS: OXYTOCIN 30 UNITS/NSS 30 UNITS/500 ML BAG IV PRN ×2 (14:40→22:32)
--- NOTE | 2024-04-11 16:48 | Obstetrical Progress Note ---
Date of Service April 11, 2024 Assessment & Plan Admission and Anticipated Discharge Date Admission Date: April 11, 2024 Subjective Patient is reevaluated. She feels mild pain with contractions, does not need epidural, desires to stand up near monitor VE; 3 cm/ 70%/-1 FHR categ I Tovo ctxs q 3-4 min, Oxytocin is at 8 mu/min 1st dose of PCN was completed Continue to monitor Results & Data Vital Signs (Past 12 Hours) Vital Signs Temp Pulse Resp BP 04/11/24 15:46 75 123/78 04/11/24 14:57 36.8 C 68 126/86 04/11/24 13:11 83 116/74 04/11/24 13:07 37.0 C 83 18 116/74
[2024-04-11] MEDS: PENICILLIN GK 3 MU in DEXTROSE 5% 100 ML IV PRN (18:33)
[2024-04-11] MEDS ORDERED: diphenhydrAMINE 50 MG/ML VIAL IV PRN (18:58)
[2024-04-11] MEDS ORDERED: ePHEDrine sulfate 50 MG/ML AMP IV PRN (18:58)
[2024-04-11] MEDS ORDERED: SODIUM CHLORIDE 0.9% PF INJ 10 ML VIAL EPI PRN (18:58)
[2024-04-11] MEDS ORDERED: NALOXONE HCL 0.4 MG/1 ML VIAL/CARP IV PRN (18:58)
[2024-04-11] MEDS ORDERED: LIDOCAINE 2% MPF LOCAL 5 ML VIAL EPI PRN (18:58)
[2024-04-11] MEDS ORDERED: ROPIVACAINE 0.5% PF 5 MG/ML 20 ML VIAL EPI PRN (18:58)
[2024-04-11] MEDS ORDERED: BUPIVACAINE 0.25% PF 30 ML VIAL EPI PRN (18:58)
[2024-04-11] MEDS ORDERED: NALOXONE HCL 1 MG in SODIUM CHLORIDE 0.9% 1,000 ML IV PRN (18:58)
[2024-04-11] MEDS ORDERED: NALBUPHINE HCL 5 MG in SYRINGE 0 ML IV PRN (18:58)
[2024-04-11] MEDS ORDERED: fentaNYL citrate PF 100 MCG/2 ML VIAL EPI PRN (18:58)
--- NOTE | 2024-04-11 19:00 | Anesthesiology Consultation ---
Date of Service April 11, 2024 Assessment & Plan (1) Encounter for pre-operative examination: Chart Review Chart Review: Patient NOT seen in Pre Admission Testing and Acceptable Risk for Labor Epidural Consults Requested none History Height/Weight Height: 5 ft 7.5 in Weight: 90.265 kg Allergies Allergy/AdvReac Type Severity Reaction Status Date / Time Sulfa (Sulfonamide Allergy Unknown Verified 03/25/20 10:20 Antibiotics) Medications Home Medications Medication Instructions Recorded Confirmed Last Taken ferrous sulfate 325 mg (65 mg 325 mg PO BIDM #60 tabs 03/15/20 04/11/24 04/10/24 iron) tablet,delayed release vits no.124-ferrous fum 1 tab PO DAILY@08 #60 tabs 03/15/20 04/11/24 04/10/24 27 mg iron-folic acid 800 mcg tablet ( Vitamin) Active Medications Generic Name Dose Route Start Last Admin Trade Name Freq PRN Reason Stop Dose Admin Lactated Ringer's 1,000 mls @ 150 mls/hr 04/11/24 12:59 04/11/24 19:05 Lr IV 04/13/24 12:58 999 mls/hr .[id number] PRN Administration L&D Protocol Protocol Penicillin G Potassium 3 mu/ 106 mls @ 100 mls/hr 04/11/24 16:00 04/11/24 18:33 Dextrose IV 04/21/24 15:59 100 mls/hr Q4H PRN Administration GBS(+) Until Delivery Oxytocin 30 units in 500 mls @ 12 mls/hr 04/11/24 14:29 04/11/24 19:01 Pitocin 30 Units/Nss IV 04/13/24 14:28 0.72 units/hr .Q24H PRN 12 mls/hr Labor Induction/Augmentation Titration Protocol 0.72 UNITS/HR Past Medical History Medical History Mouth lesion Excise/repair Fourth degree perineal laceration during delivery Exercise / Class Metabolic Activity II 4-5 Yardwork/Stairs/Walk up hill Past Family History Family History Father Rheumatoid aortitis Grandmother (Maternal) Renal failure Grandfather (Paternal) Muscular dystrophy Uncle Heart disorder Mother Hypertension Grandmother (Maternal) Hypertension Aunt Muscular dystrophy Grandfather (Paternal) No problems noted. Grandfather (Maternal) Muscular dystrophy Social History Smoking Status: Never smoker Hx Alcohol Use: No Hx Substance Use: No Physical Exam Vital Signs Last Vital Signs Temp 37.0 C 04/11/24 17:13 Pulse 93 H 04/11/24 19:18 Resp 18 04/11/24 17:13 BP 128/78 04/11/24 19:18 Pulse Ox 99 04/11/24 19:18 Testing Laboratory Results 04/11/24 13:49
[2024-04-11] MEDS: LIDOCAINE 2%/EPINEPHRINE 1:200,000 20 ML PF EPI STA (19:20)
[2024-04-11] MEDS: BUPIVACAINE 0.25% PF 30 ML VIAL EPI STA (19:20)
[2024-04-11] MEDS: fentANYL 2 MCG/ML BUPIVacaine 0.125%-NSS 100ML BAG EPI PRN (19:21)
[2024-04-11] MEDS: fentaNYL citrate PF 100 MCG/2 ML VIAL EPI STA (19:21)
--- NOTE | 2024-04-11 19:34 | Obstetrical Progress Note ---
Date of Service April 11, 2024 Assessment & Plan Admission and Anticipated Discharge Date Admission Date: April 11, 2024 Subjective Patient has epidural now, comfortable VE; 3-4 cm/ 70%/ -2, AROM'ed forebag, clear FHR categ I [place] ctxs q2-4 min, Oxytocin is now increased to 14 miu/min Continue to monitor Anticipate Results & Data Vital Signs (Past 12 Hours) Vital Signs Temp Pulse Resp BP Pulse Ox 04/11/24 19:30 83 112/63 04/11/24 19:28 98 H 109/67 99 04/11/24 19:26 92 H 109/64 04/11/24 19:24 75 112/68 04/11/24 19:23 92 H 99 04/11/24 19:22 75 112/65 04/11/24 19:20 88 115/75 04/11/24 19:18 99 04/11/24 19:18 93 H 04/11/24 19:18 71 128/78 04/11/24 19:13 92 H 99 04/11/24 19:08 77 100 04/11/24 19:03 75 99 04/11/24 18:58 86 100 04/11/24 18:53 88 99 04/11/24 18:48 85 100 04/11/24 18:43 79 99 04/11/24 18:03 82 132/76 04/11/24 17:13 37.0 C 75 18 124/76 04/11/24 15:46 75 123/78 04/11/24 14:57 36.8 C 68 126/86 04/11/24 13:11 83 116/74 04/11/24 13:07 37.0 C 83 18 116/74
[2024-04-11] MEDS: fentaNYL citrate PF 100 MCG/2 ML VIAL ONE (20:01)
[2024-04-11] MEDS: BUPIVACAINE 0.25% PF 30 ML VIAL ONE (20:02)
[2024-04-11] MEDS: LIDOCAINE 2%/EPINEPHRINE 1:200,000 20 ML PF ONE (20:02)
--- NOTE | 2024-04-11 20:50 | Obstetrical Progress Note ---
Date of Service April 11, 2024 Assessment & Plan Admission and Anticipated Discharge Date Admission Date: April 11, 2024 Subjective Patient is comfortable, but could not sleep VSS Afebrile FHR categ I 2 doses of PCN completed TOCO ctxs q 2-3 min, palpate mild and short lasting VE: 4-5 cm/ 70%/-2, pitocin is still at 14 miu/ min last encounter, her nursing staff thought contractions are enough Continue to monitor closely, will continue to increase Pitocin until 20 and reevaluate Results & Data Vital Signs (Past 12 Hours) Vital Signs Temp Pulse Resp BP Pulse Ox 04/11/24 20:44 92 H 90 04/11/24 20:43 86 100 04/11/24 20:38 92 H 100 04/11/24 20:33 79 99 04/11/24 20:30 77 18 90 04/11/24 20:28 73 100 04/11/24 20:23 100 04/11/24 20:23 76 04/11/24 20:23 77 104/57 L 04/11/24 20:18 88 100 04/11/24 20:15 18 04/11/24 20:15 18 04/11/24 20:13 83 98 04/11/24 20:08 82 97 04/11/24 20:05 94 H 91 04/11/24 20:03 85 100 04/11/24 20:01 69 125/80 04/11/24 20:00 18 04/11/24 20:00 18 04/11/24 19:58 76 100 04/11/24 19:56 76 118/67 04/11/24 19:53 77 100 04/11/24 19:51 75 125/70 04/11/24 19:48 96 H 100 04/11/24 19:45 75 18 117/94 04/11/24 19:43 91 H 100 04/11/24 19:42 107 H 125/60 04/11/24 19:38 90 100 04/11/24 19:34 80 130/63 04/11/24 19:33 85 100 04/11/24 19:30 36.9 C 18 04/11/24 19:30 83 20 112/63 04/11/24 19:28 98 H 109/67 99 04/11/24 19:26 92 H 109/64 04/11/24 19:25 18 04/11/24 19:25 18 04/11/24 19:24 75 112/68 04/11/24 19:23 92 H 99 04/11/24 19:22 75 112/65 04/11/24 19:20 88 18 115/75 04/11/24 19:18 99 04/11/24 19:18 93 H 04/11/24 19:18 71 128/78 04/11/24 19:13 92 H 99 04/11/24 19:08 77 100 04/11/24 19:03 75 99 04/11/24 18:58 86 100 04/11/24 18:53 88 99 04/11/24 18:48 85 100 04/11/24 18:43 79 99 04/11/24 18:03 82 132/76 04/11/24 17:13 37.0 C 75 18 124/76 04/11/24 15:46 75 123/78 04/11/24 14:57 36.8 C 68 126/86 04/11/24 13:11 83 116/74 04/11/24 13:07 37.0 C 83 18 116/74
[2024-04-11] MEDS: MINERAL OIL 30 ML UDC ONE (21:55)
[2024-04-11] MEDS: METHYLERGONOVINE MALEATE 0.2 MG/ML AMP IM ONE (22:11)
[2024-04-11] MEDS: TRANEXAMIC ACID / 0.7% NACL 1,000 MG/100 ML BAG IV ONE (22:26)
[2024-04-11] MEDS ORDERED: SODIUM CHLORIDE 0.9% 250 ML IV PRN (22:28)
[2024-04-11] MEDS: miSOPROStoL 200 MCG TAB PR ONE (22:30)
[2024-04-11] MEDS: CARBOPROST TROMETHAMINE 250 MCG/ML AMPUL IM ONE (22:31)
[2024-04-11] MEDS ORDERED: bisacodyL 10 MG SUPP PR PRN (22:42)
[2024-04-11] MEDS ORDERED: OXYTOCIN 30 UNITS/NSS 30 UNITS/500 ML BAG IV PRN (22:42)
[2024-04-11] MEDS ORDERED: MEASLES, MUMPS & RUBELLA VIRUS VACCINE (MMR) 0.5ML VIAL SQ ONE (22:42)
[2024-04-11] MEDS ORDERED: HYDROCORTISONE ACETATE 25 MG SUPP PR PRN (22:42)
[2024-04-11] MEDS: ceFAZolin 2000MG 2,000 MG/15 ML SYR IV STA (22:57)
[2024-04-11] MEDS: ONDANSETRON INJ 2 MG/ML 2 ML VIAL IV PRN (23:04)
--- NOTE | 2024-04-11 23:13 | Delivery Summary ---
Vaginal Delivery Summary Date of Service April 11, 2024 Vaginal Delivery Summary Patient was found to be fully dilated and head at +3 station She pushed with 4 contractions and delivered the head and then shoulders with minimal traction. The baby was handed off to the mother. The cord was clampedx2 and cut at 1 minute. The vagina and perineum were checked and found to have a small 2nd degree perineal laceration. Then a gush of blood noted to be coming and the placenta was found to be in the vagina delivered spontaneously as intact and complete. IV Oxytocin was started and uterus was emptied of blood cloths and it was otherwise empty. IM methergine was given. The vaginal mucosa was repaired with 2/0 vicryl and skin on subcuticular fashion. Cervix checked to be normal except there was some oozing at the anterior lip, it was stopped with 2/0 Vicvryl with figure of 8 stitches and it was hemostatic. Some more blood cloths were emptied from uterus then decision was made to place Amaris device to prevent atony. It was placed into uterine Cavity manually by myself and then his balloon was inflated with 120 amount of sterile water to fix this device out of cervix in the vagina. .Then it was connected to the suction tube and it filled about half length of it. The patient was given IM Hemabate and IV TXA to prevent further bleeding. Vagina checked to be dry and the balloon it is in the right place. A Magallon catheter was placed into the bladder to drain urine. And I performed a bedside ultrasound confirmed the correct placement of straight otherwise into the uterus, endometrial lining appeared to be normal with normal clots, no free fluid around the uterus pelvis nor cul-de-sac. QBL was 769 ml. The fundus was firm. She was given 2 g of IV cefazolin. The baby was a viable male infant, Apgars 8/9, the weight is pending. The mother and the baby tolerated the procedure well. No complications happened and I was present during whole procedure.
[2024-04-11] MEDS: CALCIUM CARBONATE 500 MG CHEWABLE TAB PO PRN (23:23)
[2024-04-11] MEDS: METHYLERGONOVINE MALEATE 0.2 MG TAB PO SCH (23:24)
[2024-04-11] MEDS: D5W AND LACTATED RINGERS 1,000 ML IV SCH (23:25)
[2024-04-11] MEDS ORDERED: TRANEXAMIC ACID 100 MG/ML 10 ML VIAL IV ONE (23:32)
[2024-04-12] MEDS: ePHEDrine sulfate 50 MG/ML AMP ONE (00:04)
[2024-04-12] MEDS: miSOPROStoL 200 MCG TAB ONE (00:15)
[2024-04-12] MEDS: METHYLERGONOVINE MALEATE 0.2 MG/ML AMP ONE (00:15)
[2024-04-12] MEDS: DIPHTHER/TETAN/PERTUS Vaccine (Tdap, Adol/Adult) 0.5mL IM ONE (00:17)
[2024-04-12] MEDS: ONDANSETRON INJ 2 MG/ML 2 ML VIAL ONE (00:17)
[2024-04-12] MEDS: SODIUM CHLORIDE 0.9% PF INJ 10 ML VIAL EPI STA (00:21)
[2024-04-12] MEDS: IBUPROFEN 600 MG TAB PO PRN (01:19)
--- OUTSIDE RECORDS SUMMARY | 2024-04-12 03:34 | External Medical Summary | Summary of Care ---
Author Name Unknown Organization [facility] Address [address] [facility] [place] [address] Phone [phone] Care Team Providers Care Housesmith Name Role Phone Unavailable Primary Care Provider Unavailabl e Encounter Details Date Type Department Care Team (Late st Contact Info) Description 02/17/2024 Telephone Gynecology/Obstetrics [facility] [address] [place] [address] Maurilio Zheng MD [address] [place] [address] Allergies Active Allergy Reactions Criticality Noted Date Comments Sulfa Antibiotics Unknown 04/29/1999 As child documented as of this encounter (statuses as of 02/17/2024) Medications Medication Sig Dispensed Refills Start Date End Date Status 6.75-0.2 MG Oral Tablet Take by mouth. 0 Active Ondansetron HCl 8 MG Oral TabletIndications:Enc ounter for supervision of other normal in first trimester,Nausea and vomiting during Take 1 Tablet by mouth in the morning and 1 Tablet at noon and 1 Tablet before bedtime. 40 Tablet 3 09/06/2023 Active Montelukast Sodium 10 MG Oral Tablet (Singulair) Take 1 Tablet by mouth in the morning. 90 Tablet 3 11/29/2023 Active Additional Information Patient not taking.Reported on 12/29/2023 methylPREDNISolone 4 MG Oral Tablet Therapy Pack (Medrol Dosepack) follow package directions 21 Tablet 0 12/10/2023 Active Additional Information Patient not taking.Reported on 12/29/2023 Ofloxacin 0.3 % Ophthalmic Solution (Ocuflox)Indications: Conjunctivitis of left eye, unspecified conjunctivitis type Instill 1 Drop into eye in the morning and 1 Drop at noon and 1 Drop in the evening and 1 Drop before bedtime. 5 mL 0 12/15/2023 Active Additional Information Patient not taking.Reported on 12/29/2023 Cefuroxime Axetil 250 MG Oral Tablet (Ceftin)Indications:A cute recurrent frontal sinusitis Take 1 Tablet by mouth in the morning and 1 Tablet before bedtime. 14 Tablet 0 12/16/2023 Active Additional Information Patient not taking.Reported on 12/29/2023 Iron-Vitamin C 65-125 MG Oral Tablet (Vitron C) Take 1 Tablet by mouth in the morning and 1 Tablet before bedtime. 60 Tablet 3 01/27/2024 Active Additional Information Patient not taking.Reported on 02/10/2024 Vitamin B-12 1000 MCG Oral Tablet (Cyanocobalamin) Take 1 Tablet by mouth in the morning. 30 Tablet 5 01/31/2024 Active documented as of this encounter (statuses as of 02/17/2024) Active Problems Problem Noted Date Diagnosed Date Antepartum anemia complicating 024 Overview: Recommend IV iron. Pt not agreeable. Vitron C sent to pharmacy 01/27/2024 01/31/24: Pt not tolerating PO iron. Asking for referral to blood management. Referral placed. Abnormal glucose tolerance in mother complicatin g 01/27/2024 Overview: Failed glucola. Refuses 3hr GTT or checking blood sugars. See TE 01/27/24. Low-lying placenta 12/01/2023 Overview: 1.2 cm from internal os at 20 weeks Encounter for supervision of other normal , unspecified trimester 09/06/2023 Fourth-degree perineal laceration during deliver y 09/06/2023 Overview: 4th degree laceration, forceps delivery. 8lb 11oz baby At NOB does not want primary c/s, jerry like 39w IOL. 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 Vida Nguyen, STAFFING MGR Concussion 01/19/2012 09/24/2017 documented as of this encounter (statuses as of 02/17/2024) Immunizations Name Administration Dates Next Due DTaP Dipth/Tet/Acell Pertussis (Infanrix), Peds 04/29/1999,07/12/1995,07/08/1994,04/20,02/05/1994 HPV Vaccine, 4-Valent 06/19/2008,02/13/2008,01/2008 Haemophilius B (HIB), unspecified 02/26/1995 Hepatitis B Vaccine 07/08/1994,02/05/1994,1993 MMR - Measles/Mumps/Rubella Vaccine 04/29/1999,0 02/26/1995 Meningococcal Conjugate Vacc ine (Menactra/Menveo) 12/13/2007 OPV - Polio Virus Vaccine (Oral) 999,07/08/1994,04/20/1994,02/05 PPD 12/05/1994 Seasonal Influenza, Split, I IV3, With Preserve, Inj 08/01/2012,07/14/2011,07/15/2010,07/02,08/24/2008,07/12/2007 TDAP (age 10 and older)(Boostrix) 01/26/2024,09/2020,06/05/2005 TDAP (age 11 and older)(Adacel) 09/18/2015 Varicella Vaccine (Chicken Pox) 12/13/2007,11/11 documented as of this encounter Social History Tobacco Use Types Packs/Day Years Used Date Smoking Tobacco: Never Smokeless Tobacco: Never Alcohol Use Standard Drinks/Week Comments Yes 0 (1 standard drink = 0.6 oz pur e alcohol) rare PHQ-2 Answer Date Recorded PHQ Adult Total Score 0 09/01/2021 Hunger Vital Sign Answer Date Recorded Within the past 12 months, y ou worried that your food would run out before you got the money to buy more. Never true 08/28/20 23 Within the past 12 months, t he food you bought just didn't last and you didn't have money to get more. Never true 08/28/2023 Hillview Depression Scale Answer Date Recorded [place] Depression Scale Total 0 09/06/2023 The thought of harming myself has occurred to me . Never 09/06/2023 Estimated Date of Delivery Comme nts Yes 04/13/2024 Based on last me nstrual period of 07/08/2023 Sex and Gender Information Value Date Recorded Sex Assigned at Female 08/28/2023 10:56 PM EST Gender Identity Female 08/28/2023 10:56 PM EST Sexual Orientation Straight 08/28/2023 10 :56 PM EST Job Start Date Occupation Industry Not on file Not on file Not on file documented as of this encounter Miscellaneous Notes * Telephone Encounter - Maurilio Zheng MD - 02/17/2024 12:09 PM EDT Agree Thank you * Telephone Encounter - Beatriz Ji RN - 02/17/2024 11:15 AM EDT Patient calling with concerns. Reports she got a sharp severe pain on R Lower side, in between hip and groin, it lasted about a minute, was sharp and radiated down her leg and into her pelvis. The sharp severe pain went away but is still having discomfort. Denies bleeding/fluid leaking or contractions. + FM Has not tried tylenol for discomfort. Advised her to try Tylenol, increase fluid intake, and monitor for any changes or recurring pain. Patient verbalized understanding. Please review/advise further if needed. documented in this encounter Plan of Treatment Upcoming Encounters Date Type Department Care Team (Late st Contact Info) Description 02/22/2024 8:45 AM EDT Office Visit Gynecology/Obstetrics [facility] [address] [facility] [place] [address] Janell Mancini, [facility] [address] [facility] [address] 02/22/2024 9:00 AM EDT Laboratory Laboratory, [facility] [address] [facility] [place] [id number] [facility] [address] [facility] [place] [address] Health Maintenance Due Date Last Done Comments Pneumococcal Vaccine: Pediatrics (0 to 5 Years) and At-Risk Patients (6 to 64 Years) (1 of 2 - PCV) 1999 Depression Screening 09/01/2022 09/01/2021 *SPIROMETRY ONCE FOR ASTHMA-ADULT 09/03/2022 COVID-19 Vaccine ( - season) 2023 HPV/Co-Test 2023 Influenza Vaccine (FLU shot) (Season Ended) 2024 08/01/2012, 07/14/2011, 07/15/2010, Additional history exists Cervical Cancer Screening 06/19/2024 Pap Smear 06/19/2024 06/19/2021, 08/04/2017 DTaP,Tdap,and Td Vaccines (10 - Td or Tdap) 01/25/2034 01/26/2024, 12/21/2019, 09/18/2015, Additional history exists Hepatitis B Completed 07/08/1994, 01/10, 1993 MENINGOCOCCAL (MENACTRA/MENVEO) Aged Out 12/13/2007 No longer eligible based on patient's age to complete this topic GARDASIL-HPV IMMUNIZATION SERIES Completed 06/19/2008, 02/13/2008, 12/13/2007 documented as of this encounter Medical Devices Not on filedocumented as of this encounter
--- OUTSIDE RECORDS SUMMARY | 2024-04-12 03:34 | External Medical Summary ---
Author Name Unknown Address Unknown Organization K0G:[facility] [place] [address] [place] [address] Laboratory Report Ordering Provider Test Date Status HUMBERTO HENDERSON 02/22/2024 11:27:13 Final Observation Date Value Abnormality Reference (Units ) Status Glucose, 2-hr post glucose challenge 02/22/2024 11:27:13 141 70-154 (mg/dL) Final Performing Location [facility] [place] [address] [place] [address]
--- OUTSIDE RECORDS SUMMARY | 2024-04-12 03:34 | External Medical Summary | Summary of Care ---
Author Name Unknown Organization [facility] Address [address] [facility] [place] [address] Phone [phone] Care Team Providers Care Professor Of Philosophy Name Role Phone Unavailable Primary Care Provider Unavailabl e Reason for Visit * Reason Comments Return Visit Encounter Details Date Type Department Care Team (Late st Contact Info) Description 03/22/2024 8:45 AM EDT Office Visit Gynecology/Obstetri olga Zayas [address] [place] [address] BackerValerie CRNP [address] [place] [address] Encounter for supervision of other normal , unspecified trimester*; Fourth-degree perineal laceration during delivery; Antepartum anemia complicating ; GBS (group B Streptococcus carrier), +RV culture, currently Allergies Active Allergy Reactions Criticality Noted Date Comments Sulfa Antibiotics Unknown 04/29/1999 As child documented as of this encounter (statuses as of 03/22/2024) Medications Medication Sig Dispensed Refills Start Date End Date Status 6.75-0.2 MG Oral Tablet Take by mouth. Active Vitamin B-12 1000 MCG Oral Tablet (Cyanocobalamin) Take 1 Tablet by mouth in the morning. 30 Tablet 5 01/31/2024 Active documented as of this encounter (statuses as of 03/22/2024) Active Problems Problem Noted Date Diagnosed Date GBS (group B Streptococcus c arrier), +RV culture, currently 03/22/2024 Antepartum anemia complicating 024 Overview: Recommend IV iron. Pt not agreeable. Vitron C sent to pharmacy 01/27/2024 01/31/24: Pt not tolerating PO iron. Asking for referral to blood management. Referral placed. Encounter for supervision of other normal , [...] as of this encounter (statuses as of 03/22/2024) Resolved Problems Problem Noted Date Diagnosed Date Resolved Date Abnormal glucose tolerance i n mother complicating 01/27/2024 03/22/2024 Overview: Failed glucola. 3hr GTT WNL Low-lying placenta 12/01/2023 Overview: 1.2 cm from internal os at 20 weeks , normal first 08/03/201904/10 Overview: Tdap given today 12/21/19. Vida Nguyen LPN Concussion 01/19/2012 09/24/2017 documented as of this encounter (statuses as of 03/22/2024) Immunizations Name Administration Dates Next Due HPV Vaccine, 4-Valent 06/19/2008,02/13/2008,01/2008 Meningococcal Conjugate Vacc ine (Menactra/Menveo) 12/13/2007 Seasonal Influenza, Split, I IV3, With Preserve, Inj 08/01/2012,07/14/2011,07/15/2010,07/02,08/24/2008,07/12/2007 TDAP (age 10 and older)(Boostrix) 01/26/2024,09/2020 TDAP, Age 7 and older, IM (Adacel) 09/18/2015 Varicella Vaccine (Chicken Pox) 12/13/2007,11/11 documented [...] money to get more. Never true 08/28/2023 Cornell Depression Scale Answer Date Recorded Cornell Depression Scale Total 0 02/22/2024 The thought of harming myself has occurred to me . Never 02/22/2024 Estimated Date of Delivery Comme nts Yes [...] on file documented as of this encounter Last Filed Vital Signs Vital Sign Reading Time Taken Comments Blood Pressure 114/74 03/22/2024 8:42 AM EDT Pulse - - Temperature - - Respiratory Rate - - Oxygen Saturation - - Inhaled Oxygen Concentration - - Weight 89.1 kg (196 lb 6.4 oz) 03/22/2024 8:42 A M EDT Height - - Body Mass Index 30.76 03/16/2024 2:48 PM EDT documented in this encounter Progress Notes * Valerie Cardoso CRNP - 03/22/2024 8:58 AM EDT 36w6d GBS+, discussed. Increased swelling. Advised to push fluids, elevate limbs. BP is normal. Baby moving well. No regular ctx, leaking/bleeding. Some increase in pelvic pressure. Provided w/labor instructions. She does not want a 39 week induction at this time. Hoping her will get a vasectomy. 1 week return NEVILLE Smith * Ramona Brandon MED ASSIST - 03/22/2024 8:42 AM EDT 36w6d Denies vaginal bleeding/rom + movement States increased pressure Hands will swell over night Both legs and feet swelling more documented in this encounter Plan of Treatment Upcoming Encounters Date Type Department Care Team (Late st Contact Info) Description 03/31/2024 8:30 AM EDT Office Visit Gynecology/Obstetrics [facility] [address] [place] [address] Valerie Cardoso CRNP [address] [place] [address] 04/06/2024 8:45 AM EDT Office Visit Gynecology/Obstetrics [facility] [address] [place] [address] Ema Cheney CRNP [address] [place] [address] Health Maintenance Due Date Last Done Comments Pneumococcal Vaccine: Pediatrics (0 to 5 Years) and At-Risk Patients (6 to 64 Years) (1 of 2 - PCV) 1999 Depression Screening 09/01/2022 09/01/2021 *SPIROMETRY ONCE FOR ASTHMA-ADULT 09/03/2022 COVID-19 Vaccine ( season) 2023 HPV/Co-Test 2023 Influenza Vaccine (FLU [...] Not on filedocumented as of this encounter Visit Diagnoses Diagnosis Encounter for supervision of other normal , unspecified trimester- Primary Fourth-degree perineal laceration during delivery Fourth-degree perineal laceration, unspecified as to episode of care in Antepartum anemia complicating Anemia, antepartum GBS (group B Streptococcus carrier), +RV culture, currently Supervision of other high-risk documented in this encounter
--- OUTSIDE RECORDS SUMMARY | 2024-04-12 03:34 | External Medical Summary | Summary of Care ---
Author Name Unknown Organization [facility] Address [address] [facility] [place] [address] Phone [phone] Care Team Providers Care Nipping Machine Operator Name Role Phone Unavailable Primary Care Provider Unavailabl e Reason for Visit * Reason Comments Return Visit Encounter Details Date Type Department Care Team (Late st Contact Info) Description 03/09/2024 8:45 AM EDT Office Visit Gynecology/Obstetric s Carmelo [place] [address] [place] [address] Ema Cheney CRNP [address] [place] [address] Encounter for supervision of other normal , unspecified trimester*; Fourth-degree perineal laceration during delivery; Low-lying placenta; Antepartum anemia complicating ; Abnormal glucose tolerance in mother complicating Allergies Active Allergy Reactions Criticality Noted Date Comments Sulfa Antibiotics Unknown 04/29/1999 As child documented as of this encounter (statuses as of 03/09/2024) Medications Medication Sig Dispensed Refills Start Date End Date Status 6.75-0.2 MG Oral Tablet Take by mouth. Active Vitamin B-12 1000 MCG Oral Tablet (Cyanocobalamin) Take 1 Tablet by mouth in the morning. 30 Tablet 5 01/31/2024 Active documented as of this encounter (statuses as of 03/09/2024) Active Problems Problem Noted Date Diagnosed Date Antepartum anemia complicating 024 Overview: Recommend IV iron. Pt not agreeable. Vitron C sent to pharmacy 01/27/2024 01/31/24: Pt not tolerating PO iron. Asking for referral to blood management. Referral placed. Abnormal glucose tolerance in mother complicatin g 01/27/2024 Overview: Failed glucola. 3hr GTT WNL Low-lying [...] as of this encounter (statuses as of 03/09/2024) Resolved Problems Problem Noted Date Diagnosed Date Resolved Date , normal first 08/03/201904/10 Overview: Tdap given today 12/21/19. Vida Nguyen LPN Concussion 01/19/2012 09/24/2017 documented as of this encounter (statuses as of 03/09/2024) Immunizations Name Administration Dates Next Due HPV Vaccine, 4-Valent 06/19/2008,02/13/2008,03/0 01/2008 Meningococcal Conjugate Vacc ine (Menactra/Menveo) 12/13/2007 Seasonal [...] money to get more. Never true 08/28/2023 [place] Depression Scale Answer Date Recorded [place] Depression Scale Total 0 02/22/2024 The thought [...] Sign Reading Time Taken Comments Blood Pressure 100/70 03/09/2024 8:36 AM EDT Pulse - - Temperature - - Respiratory Rate - - Oxygen Saturation - - Inhaled Oxygen Concentration - - Weight 87.5 kg (192 lb 12.8 oz) 03/09/2024 8:36 AM EDT Height - - Body Mass Index 30.2 02/22/2024 8:34 AM EDT documented in this encounter Progress Notes * Ema Cheney CRNP - 03/09/2024 8:59 AM EDT 35w C/o BLE edema. Tried wearing compression stockings but thighs turned purple so she took them off and hasn't tried again. Has varicose veins of BLE. Edema symmetric. Recommend thigh high compression stockings, elevating legs. Discussed FM. She states this baby doesn't move as much as her last. Discussed kick counts at length. Aware to call if less than 10 movements in 2 hours. She thinks she is getting this amount of movement. Concerned about delivery. History of 4th degree laceration. Fearful of c/s. Doesn't know if she wants IOL as someone told her that will result in c/s. Will have pt get growth u/s and discuss deliverywith a physician. Explained that IOL does not guarantee c/s, nor does spontaneous labor guarantee . Discussed GBS at 36w. NEVILLE Garza * Ramona Brandon MED ASSIST - 03/09/2024 8:36 AM EDT 35w0d Denies vaginal bleeding/rom Decreased movements Denies nausea/vomiting/headaches Swelling in both legs from knee down- started Wednesday last week. Past week decreased movements- baby moving slower than usual. documented in this encounter Plan of Treatment Upcoming Encounters Date Type Department Care Team (Late st Contact Info) Description 03/16/2024 2:00 PM EDT Imaging Radiology [facility] [address] [facility] [address] [place] [address] 03/16/2024 3:00 PM EDT Office Visit Gynecology/Obstetrics [facility] [address] [place] [address] Robbie Jj MD [address] [place] [address] Scheduled Orders Name Type Priority Associated Diagnoses Orde r Schedule US PREG FOLLOW-UP EACH FETUS Medical Imaging Routine Encounter for supervision of other normal , unspecified trimester Fourth-degree perineal laceration during delivery Expected: 03/16/2024 (Approximate), Expires: 04/09/2025 Health Maintenance Due Date Last Done Comments [...] unspecified as to episode of care in Low-lying placenta Hemorrhage from placenta previa, unspecified as to episode of care Antepartum anemia complicating Anemia, antepartum Abnormal glucose tolerance in mother complicating Abnormal maternal glucose tolerance, complicating , childbirth, or the puerperium, unspecified as to episode of care documented in this encounter
--- OUTSIDE RECORDS SUMMARY | 2024-04-12 03:34 | External Medical Summary ---
Author Name Unknown Address Unknown Organization [id number]:LABORATORY [facility] - [address] [place], [place] [address] [address] Laboratory Report Ordering Provider Test Date Status LUZ PHAM 02/22/2024 09:23:11 Final Observation Date Value Abnormality Reference (Units ) Status WBC, Total 02/22/2024 09:23:11 11.15 Above high normal 4 .00-10.80 (K/uL) Final RBC 02/22/2024 09:23:11 3.62 3.85-5.15 (M/uL) Final Hemoglobin 02/22/2024 09:23:11 11.3 Below low normal 12 .0-15.3 (g/dL) Final Anemia reflex testing trigge rs on a HGB < 12.0 for Females and HGB < 13.0 for Males in accordance with the WHO Anemia Guidelines
Anemia reflex testing triggers on a HGB < 12.0 for Females and HGB < 13.0 for Males in accordance with the WHO Anemia Guidelines HCT 02/22/2024 09:23:11 34.0 Below low normal 36. 0-45.2 (%) Final MCV 02/22/2024 09:23:11 93.9 81.5-97.5 (fL) Final MCH 02/22/2024 09:23:11 31.2 27.0-34.0 (pg) Final MCHC 02/22/2024 09:23:11 33.2 32.0-36.0 (g/dL) Final RDW 02/22/2024 09:23:11 13.2 11.5-15.5 (%) Final Platelets 02/22/2024 09:23:11 246 140-400 (K /uL) Final MPV 02/22/2024 09:23:11 9.7 6.6-11.1 ( fL) Final Nucleated erythrocytes/100 leukocytes [Ratio] in Blood by Automated count 02/22/2024 09:23:11 0 <=0 (/100 WBCs) Final Performing Location LABORATORY [facility] - [address] [facility] [address]
--- OUTSIDE RECORDS SUMMARY | 2024-04-12 03:34 | External Medical Summary ---
Author Name Unknown Address Unknown Organization K0G:[facility] [place] [address] - [address] [place] [address] Laboratory Report Ordering Provider Test Date Status BEATRIZHUMBERTO 02/22/2024 09:23:11 Final Based on ACOG guideline, ges tational diabetes mellitus is diagnosed when any of the following is met:
Fasting is greater than or equal to 95 mg/dL
1 hour is greater than or equal to 180 mg/dL
2 hour is greater than or equal to 155 mg/dL
3 hour is greater than or equal to 140 mg/dL Observation Date Value Abnormality Reference (Units ) Status Glucose, fasting 02/22/2024 09:23:11 91 70- 94 (mg/dL) Final Performing Location [facility] [address] [place] [address]
--- OUTSIDE RECORDS SUMMARY | 2024-04-12 03:34 | External Medical Summary ---
Author Name Unknown Address Unknown Organization K0G:[facility] [place] [address] - [address] [place] [address] Laboratory Report Ordering Provider Test Date Status KELLY MAY 04/11/2024 10:47:16 Final Observation Date Value Abnormality Reference (Units ) Status Premature Rupture Membrane risk 04/11/2024 10:47:16 Positive Abnormal Negative Final Performing Location [facility] [place] [address] [place] [address]
--- OUTSIDE RECORDS SUMMARY | 2024-04-12 03:34 | External Medical Summary ---
Author Name Unknown Address Unknown Organization K01:[facility]ORY [place] [address] [place] [address] Laboratory Report Ordering Provider Test Date Status YOANA MAGDALENO 03/16/2024 15:24:57 Final Observation Date Value Abnormality Reference (Units ) Status Streptococcus agalactiae DNA [Presence] in Specimen by KIMANI with probe detection 03/16/2024 15:24:57 Positive Abnormal Negative Final Group B Streptococcus detect ed by culture-enhanced PCR (amplified probe). GBS GBSCT - [facility] 03/16/2024 15:24:57 14.4 Final GBS SPCCT - [facility] 03/16/2024 15:24:57 0.0 Final Performing Location LABORATORY [facility] [place] [address]
--- OUTSIDE RECORDS SUMMARY | 2024-04-12 03:34 | External Medical Summary ---
Author Name Unknown Address Unknown Organization K0G:[facility] [place] [address] - [address] [place] [address] Laboratory Report Ordering Provider Test Date Status HUMBERTO HENDERSON 02/22/2024 12:22:57 Final Observation Date Value Abnormality Reference (Units ) Status Glucose [Mass/volume] in Serum or Plasma --3 hours post dose glucose 02/22/2024 12:22:57 86 70-139 (mg/dL) Final Performing Location [facility] [place] [address] [place] [address]
--- OUTSIDE RECORDS SUMMARY | 2024-04-12 03:34 | External Medical Summary | Summary of Care ---
Author Name Unknown Organization [facility] Address [address] [facility] [place] [address] Phone [phone] Care Team Providers Care Textile Bag Sewer Name Role Phone Unavailable Primary Care Provider Unavailabl e Encounter Details Date Type Department Care Team (Late st Contact Info) Description 03/17/2024 Telephone Gynecology/Obstetrics [facility] [address] [place] [address] Robbie Jj MD [address] [place] [address] Allergies Active Allergy Reactions Criticality Noted Date Comments Sulfa Antibiotics Unknown 04/29/1999 As child documented as of this encounter (statuses as of 03/17/2024) Medications Medication Sig Dispensed Refills Start Date End Date Status 6.75-0.2 MG Oral Tablet Take by mouth. Active Vitamin B-12 1000 MCG Oral Tablet (Cyanocobalamin) Take 1 Tablet by mouth in the morning. 30 Tablet 5 01/31/2024 Active documented as of this encounter (statuses as of 03/17/2024) Active Problems Problem Noted Date Diagnosed Date [...] as of this encounter (statuses as of 03/17/2024) Resolved Problems Problem Noted Date Diagnosed Date Resolved Date , normal first 08/03/201904/10 Overview: Tdap given today 12/21/19. Vida Nguyen LPN Concussion 01/19/2012 09/24/2017 documented as of this encounter (statuses as of 03/17/2024) Immunizations Name Administration Dates Next Due HPV [...] money to get more. Never true 08/28/2023 [place] Depression Scale Answer Date Recorded [place] Depression Scale Total 0 02/22/2024 The thought [...] encounter Miscellaneous Notes * Telephone Encounter - Beatriz Ji RN - 03/17/2024 1:31 PM EDT T/c from patient's insurance company from child support case officer Janell Barnes. Reports she is calling to get some information r/e patient's MAUREEN visit yesterday. I did not disclose any information to her. I requested that they fax over a cover sheet requesting the information they are looking for. documented in this encounter Plan of Treatment Upcoming Encounters Date Type Department Care Team (Late st Contact Info) Description 03/22/2024 8:45 AM EDT Office Visit Gynecology/Obstetrics [facility] [address] [place] [address] Valerie Cardoso CRNP [address] [place] [address] 03/31/2024 8:30 AM EDT Office Visit Gynecology/Obstetrics [facility] [address] [place] [address] Valerie Cardoso CRNP [address] [place] [address] 04/06/2024 8:45 AM EDT Office Visit Gynecology/Obstetrics [facility] [address] [place] [address] Ema Cheney CRNP [address] [place] [address] Health Maintenance Due Date Last Done Comments [...]
--- OUTSIDE RECORDS SUMMARY | 2024-04-12 03:34 | External Medical Summary | Summary of Care ---
Author Name Unknown Organization [facility] Address [address] [facility] [address] Phone [phone] Care Team Providers Care Capper Machine Operator Name Role Phone Unavailable Primary Care Provider Unavailabl e Reason for Visit * Reason Comments Return Visit Encounter Details Date Type Department Care Team (Late st Contact Info) Description 03/16/2024 3:00 PM EDT Office Visit Gynecology/[facility]stetric s [facility] [address] [place] [address] Robbie Jj MD [address] [place] [address] Encounter for supervision of other normal , unspecified trimester*; Fourth-degree perineal laceration during delivery; Low-lying placenta; Antepartum anemia complicating ; Abnormal glucose tolerance in mother complicating Allergies Active Allergy Reactions Criticality Noted Date Comments Sulfa Antibiotics Unknown 04/29/1999 As child documented as of this encounter (statuses as of 03/16/2024) Medications Medication Sig Dispensed Refills Start Date End Date Status 6.75-0.2 MG Oral Tablet Take by mouth. Active Vitamin B-12 1000 MCG Oral Tablet (Cyanocobalamin) Take 1 Tablet by mouth in the morning. 30 Tablet 5 01/31/2024 Active documented as of this encounter (statuses as of 03/16/2024) Active Problems Problem Noted Date Diagnosed Date [...] as of this encounter (statuses as of 03/16/2024) Resolved Problems Problem Noted Date Diagnosed Date Resolved Date , normal first 08/03/201904/10 Overview: Tdap given today 12/21/19. Vida Nguyen LPN Concussion 01/19/2012 09/24/2017 documented as of this encounter (statuses as of 03/16/2024) Immunizations Name Administration Dates Next Due HPV [...] money to get more. Never true 08/28/2023 [place] Depression Scale Answer Date Recorded [place] Depression Scale Total 0 02/22/2024 The thought [...] Sign Reading Time Taken Comments Blood Pressure 100/58 03/16/2024 2:48 PM EDT Pulse - - Temperature - - Respiratory Rate - - Oxygen Saturation - - Inhaled Oxygen Concentration - - Weight 88 kg (194 lb) 03/16/2024 2:48 PM EDT Height 170.2 cm (5' 7") 03/16/2024 2:48 PM EDT Body Mass Index 30.38 03/16/2024 2:48 PM EDT documented in this encounter Progress Notes * Robbie Jj MD - 03/16/2024 3:15 PM EDT Pt doing well No complaint Hx of 4th degree laceration Offered Pt c/sec- Pt declined Discussed risk of another significant vaginal laceration Pt is agreeable to indcution at 39 weeks RUSS; 17.8 Growth 50% documented in this encounter Nursing Notes * Jodi Dick LPN - 03/16/2024 2:47 PM EDT Pt had growth today 50% 17.8 RUSS Discuss delivery documented in this encounter Plan of Treatment Upcoming Encounters Date Type Department Care Team (Late st Contact Info) Description 03/22/2024 8:45 AM EDT Office Visit Gynecology/Obstetrics [facility] [address] [place] [address] Valerie Cardoso CRNP [address] [place] [address] 03/31/2024 8:30 AM EDT Office Visit Gynecology/Obstetrics [facility] [address] [place] [address] Valerie Cardoso CRNP [address] [place] [address] 04/06/2024 8:45 AM EDT Office Visit Gynecology/Obstetrics [facility] [address] [place] [address] Ema Cheney CRNP [address] [place] [address] Pending Results Name Type Priority Associated Diagnoses Date /Time GROUP B STREP CULTURE/PCR Lab Routine Encounter for supervision of other normal , unspecified trimester 03/16/2024 3:24 PM EDT Scheduled Orders Name Type Priority Associated Diagnoses Orde r Schedule GROUP B STREP CULTURE/PCR Lab Routine Encounter for supervision of other normal , unspecified trimester Expected: 03/16/2024, Expires: 03/16/2025 Health Maintenance Due Date Last Done Comments Pneumococcal Vaccine: Pediatrics (0 to 5 Years) and At-Risk Patients (6 to 64 Years) (1 of 2 - PCV) 1999 Depression Screening 09/01/2022 09/01/2021 *SPIROMETRY ONCE FOR ASTHMA-ADULT 09/03/2022 COVID-19 Vaccine (1 - 2022- season) 2023 HPV/Co-Test 2023 Influenza Vaccine (FLU [...]
--- OUTSIDE RECORDS SUMMARY | 2024-04-12 03:34 | External Medical Summary | Summary of Care ---
Author Name Unknown Organization [facility] Address [address] [facility] [place] [address] Phone [phone] Care Team Providers Care Head Bookkeeper Name Role Phone Unavailable Primary Care Provider Unavailabl e Reason for Visit * Reason Comments Return Visit Encounter Details Date Type Department Care Team (Latest Contact Info) Description 04/06/2024 8:45 AM EDT Office Visit Gynecology/Obstetric s [facility] [address] [place] [address] Ema Cheney CRNP [address] [place] [address] Encounter for supervision of other normal , unspecified trimester*; Fourth-degree perineal laceration during delivery; Antepartum anemia complicating ; GBS (group B Streptococcus carrier), +RV culture, currently Allergies Active Allergy Reactions Criticality Noted Date Comments Sulfa Antibiotics Unknown 04/29/1999 As child documented as of this encounter (statuses as of 04/06/2024) Medications Medication Sig Dispensed Refills Start Date End Date Status 6.75-0.2 MG Oral Tablet Take by mouth. Active Vitamin B-12 1000 MCG Oral Tablet (Cyanocobalamin) Take 1 Tablet by mouth in the morning. 30 Tablet 5 01/31/2024 Active documented as of this encounter (statuses as of 04/06/2024) Active Problems Problem Noted Date Diagnosed Date [...] laceration, forceps delivery. 8lb 11oz baby At [facility] does not want primary c/s, jerry like 39w IOL. 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 3hr GTT WNL Low-lying placenta 12/01/2023 Overview: 1.2 cm from internal os at 20 weeks , normal first 08/03/201904/10 Overview: Tdap given today 12/21/19. Vida Nguyen LPN Concussion 01/19/2012 09/24/2017 documented as of this encounter (statuses as of 04/06/2024) Immunizations Name Administration Dates Next Due HPV [...] money to get more. Never true 08/28/2023 [place] Depression Scale Answer Date Recorded [place] Depression Scale Total 0 02/22/2024 The thought of harming myself has occurred to me . Never 02/22/2024 Childcare Answer Date Recorded Do you feel overwhelmed with taking care of a child, family member or friend? No 08/28/2023 Does your family need help f inding childcare? (Household - for ages 0-17 years) Not on file 08/28/2023 Clothing Answer Date Recorded Have you been unable to get clothing when it was really needed? No 08/28/2023 Is your family able to get c lothes or diapers when needed? (Household - for ages 0-17 years) Not on file 08/28/2023 Personal Safety Answer Date Recorded Do you feel unsafe or have concerns for your saf ety? No 08/28/2023 Do you have concerns for you r family's safety? (Household - for ages 0-17 years) Not on file 08/28/2023 Utilities Answer Date Recorded Do you have trouble paying y our heating, water, or electric bill? No 08/28/2023 Is your family able to pay t he heat, water, or electric bill? (Household - for ages 0-17 years) Not on file 08/28/2023 Does your family have access to good internet? (Household - for ages 0-17 years) Not on file 08/28/2023 Employment Status Answer Date Recorded Are you unemployed or without regular income? No 08/28/2023 Does the household have a re gular source of income? (Household - for ages 0-17 years) Not on file 08/28/2023 Social Connections Answer Date Recorded How often do you feel lonely or isolated from th ose around you? Never 08/28/2023 Financial Resource Strain Answer Date R ecorded Do you have any trouble payi ng for your medications, or do you think you might in the future? No 08/28/2023 Does your family have troubl e paying for medicine? (Household - for ages 0-17 years) Not on file 08/28/2023 Transportation Needs Answer Date Record ed READ ONLY Do you have troubl e getting a ride to medical visits or work? Never True 08/28/2023 Does your family have a hard time getting a ride to doctors visits? (Household - for ages 0-17 years) Not on file 08/28/2023 Has lack of transportation k ept you from medical appointments, meetings, work, or from getting things needed for daily living? Check all that apply. (Adult - for ages 18 years and over) Not on file 08/28/2023 Do you (or your family) have trouble finding or paying for a ride (transportation)? (Household - for ages 0-17 years) Not on file 08/28/2023 Housing Stability Answer Date Recorded Do you currently live in a s helter or have no steady place to sleep at night? No 08/28/2023 READ ONLY Do you think you a re at risk of becoming homeless? No 08/28/2023 Does your family worry about paying for your home or becoming homeless? (Household - for ages 0-17 years) Not on file 1 10/28/2022 Are you homeless or worried that you might be in the future? (Adult - for ages 18 years and over) Not on file 3 Are you (or your family) jet eless or worried that you might be in the future? (Household - for ages 0-17 years) Not on file Food Insecurity Answer Date Recorded Do you need food for this week? No 08/28/2023 Are you able to get enough f ood for your family? (Household - for ages 0-17 years) Not on file 08/28/2023 Does your family need food t his week? (Household - for ages 0-17 years) Not on file 08/28/2023 Do you always have enough fo od for your family? (Household - for ages 0-17 years) Not on file 08/28/2023 Estimated Date of Delivery Comme nts Yes [...] Sign Reading Time Taken Comments Blood Pressure 128/72 04/06/2024 8:40 AM EDT Pulse - - Temperature - - Respiratory Rate - - Oxygen Saturation - - Inhaled Oxygen Concentration - - Weight 90.9 kg (200 lb 6.4 oz) 04/06/2024 8:40 A M EDT Height - - Body Mass Index 31.39 03/16/2024 2:48 PM EDT documented in this encounter Progress Notes * Ema Cheney CRNP - 04/06/2024 8:56 AM EDT 39w No concerns. Some BH contractions, no bleeding or LOF. Good FM. Discussed IOL- history of 4th degree laceration. She states that she spoke with Dr. Jj regardingthis, and given the fact that there is no guarantee for a better outcome, she politely declines early IOL. Is agreeable to scheduling when postdates, IOL scheduled for 04/17. NEVILLE Garza * Ramona Brandon MED ASSIST - 04/06/2024 8:40 AM EDT 39w0d Denies vaginal bleeding/rom + movements + jr louis, not timeable No new concerns documented in this encounter Plan of Treatment Upcoming Encounters Date Type Department Care Team (Late st Contact Info) Description 04/11/2024 10:30 AM EDT Office Visit Gynecology/Obstetrics [facility] [address] [facility] [place] [address] Meseret Garcia PA-C [address] [place] [address] [place] [address] Health Maintenance Due Date Last Done Comments [...]
--- OUTSIDE RECORDS SUMMARY | 2024-04-12 03:34 | External Medical Summary ---
Author Name Unknown Address Unknown Organization [facility] [place] [address] [place] [address] Laboratory Report Ordering Provider Test Date Status HUMBERTO HENDERSON 02/22/2024 10:27:19 Final Observation Date Value Abnormality Reference (Units ) Status Glucose [Mass/volume] in Serum or Plasma --1 hour post dose glucose 02/22/2024 10:27:19 140 70-179 (mg/dL) Final Performing Location [facility] [address] [place] [address]
--- OUTSIDE RECORDS SUMMARY | 2024-04-12 03:34 | External Medical Summary | Summary of Care ---
Author Name Unknown Organization [facility] Address [address] [facility] [address] Phone [phone] Care Team Providers Care Rock Mason Apprentice Name Role Phone Unavailable Primary Care Provider Unavailabl e Reason for Visit * Reason Comments Return Visit Encounter Details Date Type Department Care Team (Late st Contact Info) Description 02/22/2024 8:45 AM EDT Office Visit Gynecology/Obstetric [facility] [address] [facility] [place] [address] Janell Mancini, [facility] [address] [place] [address] Encounter for supervision of other normal , unspecified trimester*; Low-lying placenta; Antepartum anemia complicating ; Abnormal glucose tolerance in mother complicating Allergies Active Allergy Reactions Criticality Noted Date Comments Sulfa Antibiotics Unknown 04/29/1999 As child documented as of this encounter (statuses as of 02/22/2024) Medications Medication Sig Dispensed Refills Start Date End Date Status 6.75-0.2 MG Oral Tablet Take by mouth. 0 Active Vitamin B-12 1000 MCG Oral Tablet (Cyanocobalamin) Take 1 Tablet by mouth in the morning. 30 Tablet 5 01/31/2024 Active Ondansetron HCl 8 MG Oral TabletIndications:En counter for supervision of other normal in first trimester,Nausea and vomiting during Take 1 Tablet by mouth in the morning and 1 Tablet at noon and 1 Tablet before bedtime. 40 Tablet 3 09/06/2023 4 Discontinue d(Medicatio n List Clean Up) Montelukast Sodium 10 MG Oral Tablet (Singulair) Take 1 Tablet by mouth in the morning. 90 Tablet 3 11/29/2023 4 Discontinue d(Medicatio n List Clean Up) methylPREDNISolone 4 MG Oral Tablet Therapy Pack (Medrol Dosepack) follow package directions 21 Tablet 0 12/10/2023 4 Discontinue d(Medicatio n List Clean Up) Ofloxacin 0.3 % Ophthalmic Solution (Ocuflox)Indications :Conjunctivitis of left eye, unspecified conjunctivitis type Instill 1 Drop into eye in the morning and 1 Drop at noon and 1 Drop in the evening and 1 Drop before bedtime. 5 mL 0 12/15/2023 4 Discontinue d(Medicatio n List Clean Up) Cefuroxime Axetil 250 MG Oral Tablet (Ceftin)Indications: Acute recurrent frontal sinusitis Take 1 Tablet by mouth in the morning and 1 Tablet before bedtime. 14 Tablet 0 12/16/2023 4 Discontinue d(Medicatio n List Clean Up) Iron-Vitamin C 65-125 MG Oral Tablet (Vitron C) Take 1 Tablet by mouth in the morning and 1 Tablet before bedtime. 60 Tablet 3 01/27/2024 4 Discontinue d(Medicatio n List Clean Up) documented as of this encounter (statuses as of 02/22/2024) Active Problems Problem Noted Date Diagnosed Date [...] as of this encounter (statuses as of 02/22/2024) Resolved Problems Problem Noted Date Diagnosed Date Resolved Date , normal first 08/03/201904/10 Overview: Tdap given today 12/21/19. Vida Nguyen LPN Concussion 01/19/2012 09/24/2017 documented as of this encounter (statuses as of 02/22/2024) Immunizations Name Administration Dates Next Due HPV Vaccine, 4-Valent 06/19/2008,02/13/2008,01/2008 Meningococcal Conjugate Vacc ine (Menactra/Menveo) 12/13/2007 Seasonal Influenza, Split, I IV3, With Preserve, Inj 08/01/2012,07/14/2011,07/15/2010,07/02,08/24/2008,07/12/2007 TDAP (age 10 and older)(Boostrix) 01/26/2024,09/2020 TDAP (age 11 and older)(Adacel) 09/18/2015 Varicella [...] money to get more. Never true 08/28/2023 [place] Depression Scale Answer Date Recorded [place] Depression Scale Total 0 02/22/2024 The thought [...] Sign Reading Time Taken Comments Blood Pressure 110/76 02/22/2024 8:34 AM EDT Pulse - - Temperature - - Respiratory Rate - - Oxygen Saturation - - Inhaled Oxygen Concentration - - Weight 84.8 kg (187 lb) 02/22/2024 8:34 AM EDT Height 170.2 cm (5' 7") 02/22/2024 8:34 AM EDT Body Mass Index 29.29 02/22/2024 8:34 AM EDT documented in this encounter Progress Notes * Janell Mancini CNM - 02/22/2024 8:59 AM EDT Niki Rosa is a 28 year old female here for her routine OB appointment at 32w5d Her Estimated Date of Delivery: 04/13/24 REVIEW OF SYSTEMS: She affirms movement. Denies vaginal bleeding, LOF, contractions, headaches, vision changes, and RUQ pain. +Nausea, no vomiting. Her mom Danita accompanies her today. PHYSICAL EXAM: Filed Vitals: 02/22/24 0834 BP: 110/76 Weight: 84.8 kg (187 lb) Height: 1.702 m (5' 7") +FHT 130bpm Fundal height: 32cm ASSESSMENT/PLAN: (O70.3) Fourth-degree perineal laceration during delivery Plan: -Repeat growth US at 37 weeks per Ema (O99.019) Antepartum anemia complicating Plan: -Repeat CBC today -Trying to increase iron in the diet (O99.810) Abnormal glucose tolerance in mother complicating Plan: -3 hour GTT today (Z34.80) Encounter for supervision of other normal , unspecified trimester (primary encounter diagnosis) Plan: - labor precautions and kick counts reviewed - RTO in 2 weeks Janell Mancini CNM documented in this encounter Nursing Notes * Sharlene Silva LPN - 02/22/2024 8:40 AM EDT 32w5d Early 3hr gtt today Right sided pelvic pain shooting down into leg. Gets better with tylenol. documented in this encounter Plan of Treatment Upcoming Encounters Date Type Department Care Team (Late st Contact Info) Description 03/09/2024 8:45 AM EDT Office Visit Gynecology/Obst[facility]s [facility] [address] [place] [address] Ema Cheney CRNP [address] [place] [address] Health Maintenance Due Date Last Done Comments [...] of other normal , unspecified trimester- Primary Low-lying placenta Hemorrhage from placenta previa, unspecified as to episode of care Antepartum anemia complicating Anemia, antepartum Abnormal glucose tolerance in mother complicating Abnormal maternal glucose tolerance, complicating , childbirth, or the puerperium, unspecified as to episode of care documented in this encounter
--- OUTSIDE RECORDS SUMMARY | 2024-04-12 03:34 | External Medical Summary | Summary of Care ---
Author Name Unknown Organization [facility] Address [address] [facility] [place] [address] Phone [phone] Care Team Providers Care Nuclear Logging Engineer Name Role Phone Unavailable Primary Care Provider Unavailabl e Reason for Visit * Reason Comments Return Visit Encounter Details Date Type Department Care Team (Late st Contact Info) Description 03/31/2024 8:30 AM EDT Office Visit Gynecology/Obstetri [facility] [address] [place] [address] BackerValerie CRNP [address] [place] [address] Encounter for supervision of other normal , unspecified trimester*; Fourth-degree perineal laceration during delivery; Antepartum anemia complicating ; GBS (group B Streptococcus carrier), +RV culture, currently Allergies Active Allergy Reactions Criticality Noted Date Comments Sulfa Antibiotics Unknown 04/29/1999 As child documented as of this encounter (statuses as of 03/31/2024) Medications Medication Sig Dispensed Refills Start Date End Date Status 6.75-0.2 MG Oral Tablet Take by mouth. Active Vitamin B-12 1000 MCG Oral Tablet (Cyanocobalamin) Take 1 Tablet by mouth in the morning. 30 Tablet 5 01/31/2024 Active Erythromycin 5 MG/GM Ophthalmic OintmentIndications: Acute bacterial conjunctivitis of left eye Instill into the left eye 4 times a day for 10 days. Instill thin ribbon 3.5 g 11/28/2023 03/31/2024 Discontinue d(Medicatio n List Clean Up) Amoxicillin-Pot Clavulanate 875-125 MG Oral Tablet (Augmentin) Take 1 Tablet by mouth in the morning and 1 Tablet before bedtime. Do all this for 10 days. 20 Tablet 11/29/2023 03/31/2024 Discontinue d(Medicatio n List Clean Up) documented as of this encounter (statuses as of 03/31/2024) Active Problems Problem Noted Date Diagnosed Date [...] as of this encounter (statuses as of 03/31/2024) Resolved Problems Problem Noted Date Diagnosed Date Resolved Date Abnormal glucose tolerance i n mother complicating 01/27/2024 03/22/2024 Overview: Failed glucola. 3hr GTT WNL Low-lying placenta 12/01/2023 Overview: 1.2 cm from internal os at 20 weeks , normal first 08/03/201904/10 Overview: Tdap given today 12/21/19. Vida Nguyen, MANAGER POST Concussion 01/19/2012 09/24/2017 documented as of this encounter (statuses as of 03/31/2024) Immunizations Name Administration Dates Next Due HPV [...] money to get more. Never true 08/28/2023 [place] Depression Scale Answer Date Recorded [place] Depression Scale Total 0 02/22/2024 The thought [...] No 08/28/2023 Does the household have a [facility] source [facility] income? (Household - for ages [...] 18 years and over) Not on file Are you (or your family) jet eless [...] Sign Reading Time Taken Comments Blood Pressure 102/64 03/31/2024 8:26 AM EDT Pulse - - Temperature - - Respiratory Rate - - Oxygen Saturation - - Inhaled Oxygen Concentration - - Weight 90.7 kg (200 lb) 03/31/2024 8:26 AM EDT Height - - Body Mass Index 31.32 03/16/2024 2:48 PM EDT documented in this encounter Progress Notes * Valerie Cardoso CRNP - 03/31/2024 8:36 AM EDT 38w1d Good movement. Denies ctx, leaking, bleeding. LLQ pain extending into her leg last night - better this morning after showering. Discussed this sounds like round ligament pain - reviewed comfortmeasures and signs that warrant medical attention. Return in 1 week. Call sooner with signs of labor or decreased FM. NEVILLE mSith * Belkis Landis LPN - 03/31/2024 8:25 AM EDT 38w1d Denies vaginal bleeding/rom + movement Was having pain last night ? Round ligament that would radiate down leg- seems better this morning. documented in this encounter Plan of Treatment Upcoming Encounters Date Type Department Care Team (Late st Contact Info) Description 04/06/2024 8:45 AM EDT [facility] [address] [place] [address] Ema Cheney CRNP [address] [place] [address] Health Maintenance Due Date Last Done Comments [...]
--- OUTSIDE RECORDS SUMMARY | 2024-04-12 03:34 | External Medical Summary | Summary of Care ---
Author Name Unknown Organization [facility] Address [address] [facility] [place] [address] Phone [phone] Care Team Providers Care Paste Maker Name Role Phone Unavailable Primary Care Provider Unavailabl e Encounter Details Date Type Department Care Team (Late st Contact Info) Description 02/17/2024 Telephone Gynecology/Obstetrics [facility] [address] [place] [address] Maurilio Zheng MD [address] [place] [address] Allergies Active Allergy Reactions Criticality Noted Date [...] Overview: Tdap given today 12/21/19. 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 Never true 08/28/2023 [place] Depression Scale Answer Date Recorded [place] Depression Scale Total 0 09/06/2023 The thought [...] Encounter - Beatriz Ji RN - 02/17/2024 12:12 PM EDT Patient called and made aware. She reports that the leg pain is back but not as bad. No other concerns. Has not tried tylenol yet. Patient advised to try tylenol and see if this improves, is aware tocall back with no improvement or worsening symptoms. Pt agreeable. * Telephone Encounter - Maurilio Zheng MD [...] 02/22/2024 8:45 AM EDT Office Visit Gynecology/Obstetrics [facility] [address] [facility] [place] [address] Janell Mancini [address] [phone] 02/22/2024 9:00 AM EDT [facility] [address] [facility] [place] [phone] ZayasRigo jha [facility] [address] [facility] [place] [address] Health Maintenance Due Date Last Done Comments [...]
--- OUTSIDE RECORDS SUMMARY | 2024-04-12 03:34 | External Medical Summary ---
Author Name Unknown Address Unknown Organization K01:LABORATORY [facility] [place] - [address] [place] [facility] [place] [address] Laboratory Report Ordering Provider Test Date Status LUZ PHAM 02/22/2024 09:23:11 Final Observation Date Value Abnormality Reference (Units ) Status SYNC LEUKOCYTES IN BLOOD BY AUTOMATED COUNT 02/22/2024 09:23:11 11.15 Above high normal 4.00-10.80 (K/uL) Final Segs 02/22/2024 09:23:11 76.1 Above high normal 40.0-75.0 (%) Final Lymphs % 02/22/2024 09:23:11 16.9 Below low normal 18.0-42.0 (%) Final Monos 02/22/2024 09:23:11 4.8 1.0-11.0 (%) Final Eosinophils 02/22/2024 09:23:11 0.2 0.0-6.0 (%) Final Basos 02/22/2024 09:23:11 0.3 0.0-2.0 (%) Final Immature Granulocyte, Percent 02/22/2024 09:23:11 1.7 0.0-2.0 (%) Final Absolute Segs 02/22/2024 09:23:11 8.50 Above high normal 1.80-7.70 (K/uL) Final Lymphs, absolute 02/22/2024 09:23:11 1.88 1.00-4.80 (K/ul) Final Monos, Abs 02/22/2024 09:23:11 0.53 0.00-1.10 (K/uL) Final Eos, Abs 02/22/2024 09:23:11 0.02 0.00-0.70 (K/uL) Final Basos, Abs 02/22/2024 09:23:11 0.03 0.00-0.20 (K/uL) Final Immature Granulocytes, Number 02/22/2024 09:23:11 0.19 0.00-0.20 (K/uL) Final Performing Location LAB[facility]ATORY [facility] [place] - [facility] [place] [address]
--- OUTSIDE RECORDS SUMMARY | 2024-04-12 03:34 | External Medical Summary | Summary of Care ---
Author Name Unknown Organization [facility] Address [address] [facility] [place] [address] Phone [phone] Care Team Providers Care Co Op Name Role Phone Unavailable Primary Care Provider Unavailabl e Reason for Visit * Reason Comments Outpatient Testing Encounter Details Date Type Department Care Team (Late st Contact Info) Description 02/22/2024 9:00 AM EDT Laboratory Laboratory, [facility] [address] [facility] [place] [phone] [facility] [address] [facility] [place] [address] Abnormal glucose tolerance in mother complicating ; Antepartum anemia complicating Allergies Active Allergy Reactions Criticality Noted [...] laceration, forceps delivery. 8lb 11oz baby At [facility] does not want primary c/s, [...] Overview: Tdap given today 12/21/19. Vida Nguyen, ARUN Concussion 01/19/2012 09/24/2017 documented as of this encounter (statuses as of 02/22/2024) Immunizations Name Administration Dates Next Due HPV Vaccine, 4-Valent 06/19/2008,02/13/2008,030 01/2008 Meningococcal Conjugate Vacc ine (Menactra/Menveo) 12/13/2007 [...] money to get more. Never true 08/28/2023 [place] Depression Scale Answer Date Recorded [place] Depression Scale Total 0 02/22/2024 The thought [...] on file documented as of this encounter Plan of Treatment Upcoming Encounters Date Type Department Care Team (Late st Contact Info) Description 03/09/2024 8:45 AM EDT Office Visit Gynecology/Obstetrics Carmelo Zayas [address] [place] [address] Ema Cheney CRNP [address] [place] [address] Pending Results Name Type Priority Associated Diagnoses Date /Time GESTATIONAL GLUCOSE TOLERANCE, 3 HOUR Lab Routine Abnormal glucose tolerance in mother complicating 02/22/2024 9:23 AM EDT CBC WITH WBC DIFFERENTIAL AND ANEMIA REFLEX WORKUP Lab Routine Antepartum anemia complicating 02/22/2024 9:23 AM EDT ANEMIA CBC Lab Routine Antepartum anemia complicating 02/22/2024 9:23 AM EDT DIFFERENTIAL, AUTOMATED Lab Routine Antepartum anemia complicating 02/22/2024 9:23 AM EDT ANEMIA REFLEX CHEMISTRY HOLD Lab Routine Antepartum anemia complicating 02/22/2024 9:23 AM EDT 100-G GESTATIONAL GLUCOSE, 3 HOUR Lab Routine Abnormal glucose tolerance in mother complicating 02/22/2024 12:22 PM EDT Health Maintenance Due Date Last Done Comments [...] Not on filedocumented as of this encounter Procedures Procedure Name Priority Date/Time Associated Diagnosis Comments 100-G GESTATIONAL GLUCOSE, 2 HOUR Routine 02/22/2024 11:27 AM EDT Abnormal glucose tolerance in mother complicating 100-G GESTATIONAL GLUCOSE, 1 HOUR Routine 02/22/2024 10:27 AM EDT Abnormal glucose tolerance in mother complicating 100-G GESTATIONAL GLUCOSE, FASTING Routine 02/22/2024 9:23 AM EDT Abnormal glucose tolerance in mother complicating documented in this encounter Results * 100-G GESTATIONAL GLUCOSE, 2 HOUR (02/22/2024 11:27 AM EDT) 100-g Gestational Glucose, 2 Hour 141 70 - 154 mg/dL 02/22/2024 12:15 PM EDT LAB[facility] [place] [facility]10 Blood Venous blood specimen / Unknown Venipuncture / Unknown 02/22/2024 11:27 AM EDT 02/22/2024 11:27 AM EDT Ema LOZADA LAB BLOOD ORDERABLES Performing Organization Address City/[facility]/ZIP Co de Phone Number LABORATORY [place] [facility] [place] [address] * 100-G GESTATIONAL GLUCOSE, 1 HOUR (02/22/2024 10:27 AM EDT) 100-g Gestational Glucose, 1 Hour 140 70 - 179 mg/dL 02/22/2024 11:47 AM EDT [facility] [place] [facility]10 Blood Venous blood specimen / Unknown Venipuncture / Unknown 02/22/2024 10:27 AM EDT 02/22/2024 10:27 AM EDT Ema LOZADA LAB BLOOD ORDERABLES [facility] [place] [facility] [place] [address] * 100-G GESTATIONAL GLUCOSE, FASTING (02/22/2024 9:23 AM EDT) 100-g Gestational Glucose, Fasting 91 70 - 94 mg/dL 02/22/2024 10:15 AM EDT [facility] [place] [facility]10 Blood Venous blood specimen / Unknown Venipuncture / Unknown 02/22/2024 9:23 AM EDT 02/22/2024 9:23 AM EDT Narrative [facility]ATORY [facility]10 - 02/22/2024 10:15 AM EDT Based on ACOG guideline, gestational diabetes mellitus is diagnosed when any of the following is met: Fasting is greater than or equal to 95 mg/dL 1 hour is greater than or equal to 180 mg/dL 2 hour is greater than or equal to 155 mg/dL 3 hour is greater than or equal to 140 mg/dL Ema LOZADA LAB BLOOD ORDERABLES [facility] [address] [place] [address] [place] [address] documented in this encounter Visit Diagnoses Diagnosis Abnormal glucose tolerance in mother complicating Abnormal maternal glucose tolerance, complicating , childbirth, or the puerperium, unspecified as to episode of care Antepartum anemia complicating Anemia, antepartum documented in this encounter
--- OUTSIDE RECORDS SUMMARY | 2024-04-12 03:35 | External Medical Summary ---
Author Name Unknown Address Unknown Organization K01:LABORATORY [facility] [place] - [address] [place] [address] Laboratory Report Ordering Provider Test Date Status HUMBERTO HENDERSON 01/26/2024 14:48:42 Final Observation Date Value Abnormality Reference (Units ) Status Iron 01/26/2024 14:48:42 100 33-151 (ug/dL) Final Iron-binding capacity 01/26/2024 14:48:42 464 Above high normal 250-425 (ug/dL) Final Transferrin Sat % 01/26/2024 14:48:42 22 15-55 (%) Final Performing Location LAB[facility]ATORY [facility] [place] - [address] [place] [address]
--- OUTSIDE RECORDS SUMMARY | 2024-04-12 03:35 | External Medical Summary | Summary of Care ---
Author Name Unknown Organization [facility] Address [address] [facility] [place] [address] Phone [phone] Care Team Providers Care School Bus Inspector Name Role Phone Unavailable Primary Care Provider Unavailabl e Reason for Visit * Reason Comments Return Visit Encounter Details Date Type Department Care Team (Late st Contact Info) Description 02/10/2024 4:30 PM EDT Office Visit Gynecology/Obstetric s Carmelo Zayas [address] [place] [address] Chandrika Hunter PA-C [address] [place] [address] Encounter for supervision of other normal , unspecified trimester*; Fourth-degree perineal laceration during delivery; Low-lying placenta; Antepartum anemia complicating ; Abnormal glucose tolerance in mother complicating Allergies Active Allergy Reactions Criticality Noted Date Comments Sulfa Antibiotics Unknown 04/29/1999 As child documented as of this encounter (statuses as of 02/10/2024) Medications Medication Sig Dispensed Refills Start Date [...] as of this encounter (statuses as of 02/10/2024) Active Problems Problem Noted Date Diagnosed Date [...] as of this encounter (statuses as of 02/10/2024) Resolved Problems Problem Noted Date Diagnosed Date Resolved Date , normal first 08/03/201904/10 Overview: Tdap given today 12/21/19. Vida Nguyen LPN Concussion 01/19/2012 09/24/2017 documented as of this encounter (statuses as of 02/10/2024) Immunizations Name Administration Dates Next Due HPV [...] money to get more. Never true 08/28/2023 [place] Depression Scale Answer Date Recorded [place] Depression Scale Total 0 09/06/2023 The thought [...] Sign Reading Time Taken Comments Blood Pressure 98/70 02/10/2024 4:18 PM EDT Pulse - - Temperature - - Respiratory Rate - - Oxygen Saturation - - Inhaled Oxygen Concentration - - Weight 83 kg (183 lb) 02/10/2024 4:18 PM EDT Height 170.2 cm (5' 7") 02/10/2024 4:18 PM EDT Body Mass Index 28.66 02/10/2024 4:18 PM EDT documented in this encounter Progress Notes * Chandrika Hunter PA-C - 02/10/2024 4:41 PM EDT 31w0d Failed 1 hour gtt, has not completed 3 hour gtt. States today doesn't feel she needs as typically struggled with low sugars prior to and only failed it by a few points. She also notes had Dairy Lepe before she did 1 hour gtt. Explained that what she ate should not impact test, and failing by a few points still is abnormal results. We discussed she could still have GDM. Reports struggles with also completing d/t work schedule and taking off. Offered finger sticks. Pt not interested int this. Explained importance of screening for GDM and the risk but limited to LGA as well as stillbirth with GDM particularly uncontrolled. She understood and was agreeable to completing with next appo intment. Had anemia with other labs. Tried PO iron but it caused vomiting, has instead try to increase iron in diet. Will plan repeat CBC with next visit, reassess at that time. Having occasional shooting pain down front right leg, very intermittent. Discuss comfort measures. Denies VB, LOF, contractions. Pos fm. RTC in 2 weeks Chandrika Hunter PA-C documented in this encounter Nursing Notes * Sharlene Silva LPN - 02/10/2024 4:22 PM EDT 31w0d Denies concerns documented in this encounter Plan of Treatment Upcoming Encounters Date Type Department Care Team (Late st Contact Info) Description 02/22/2024 8:45 AM EDT Office Visit Gynecology/Obstetrics Carmelo Zayas [address] [address] Janell Manc[address] [place] [address] 02/22/2024 9:00 AM EDT [facility] [address] [place] [phone] ZayasRigo jha [address] [place] [address] Scheduled Orders Name Type Priority Associated Diagnoses Orde r Schedule CBC WITH WBC DIFFERENTIAL AND ANEMIA REFLEX WORKUP Lab Routine Antepartum anemia complicating Expected: 02/10/2024, Expires: 02/09/2025 Health Maintenance Due Date Last Done Comments [...]
--- OUTSIDE RECORDS SUMMARY | 2024-04-12 03:35 | External Medical Summary | Summary of Care ---
Author Name Unknown Organization [facility] Address [address] [facility] [address] Phone [phone] Care Team Providers Care Finishing Range Operator Name Role Phone Unavailable Primary Care Provider Unavailabl e Reason for Visit * Reason Comments Outpatient Testing Encounter Details Date Type Department Care Team (Late st Contact Info) Description 01/26/2024 1:50 PM EDT Laboratory Laboratory, [facility] [address] [facility] [place] [phone] [facility] [address] [facility] [place] [address] Encounter for supervision of other normal , unspecified trimester Allergies Active Allergy Reactions Criticality Noted Date Comments Sulfa Antibiotics Unknown 04/29/1999 As child documented as of this encounter (statuses as of 01/26/2024) Medications Medication Sig Dispensed Refills Start Date [...] Additional Information Patient not taking.Reported on 12/29/2023 documented as of this encounter (statuses as of 01/26/2024) Active Problems Problem Noted Date Diagnosed Date Low-lying placenta 12/01/2023 Overview: 1.2 cm from internal os at 20 weeks Encounter for supervision of other normal , unspecified trimester 09/06/2023 Fourth-degree perineal laceration during deliver y 09/06/2023 Overview: 4th degree laceration, forceps delivery. 8lb 11oz baby At [facility] does not want primary c/s, jerry like 39w IOL. 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 Vida Nguyen, CLINICAL DIETICIAN Concussion 01/19/2012 09/24/2017 documented as of this encounter (statuses as of 01/26/2024) Immunizations Name Administration Dates Next Due DTaP [...] money to get more. Never true 08/28/2023 [place] Depression Scale Answer Date Recorded [place] Depression Scale Total 0 09/06/2023 The thought [...] Care Team (Late st Contact Info) Description 01/26/2024 3:00 PM EDT Office Visit Gynecology/Obstetric s Carmelo Zayas [address] [place] [address] Ema Cheney CRNP [address] [place] [address] Normal , third trimester*; Fourth-degree perineal laceration during delivery; Low-lying placenta; Need for prophylactic vaccination with combined jjaqfpoten-uqlumut-eq rtussis (DTP) vaccine 02/10/2024 4:30 PM EDT Office Visit Gynecology/Obstetric yudelka Zayas [address] [place] [address] Chandrika Hunter PA-C [address] [place] [address] Pending Results Name Type Priority Associated Diagnoses Date /Time 50-G GESTATIONAL GLUCOSE, 1 HOUR Lab Routine Encounter for supervision of other normal , unspecified trimester 01/26/2024 2:48 PM EDT CBC WITH WBC DIFFERENTIAL AND ANEMIA REFLEX WORKUP Lab Routine Encounter for supervision of other normal , unspecified trimester 01/26/2024 2:48 PM EDT SYPHILIS ANTIBODY SCREEN WITH REFLEX TO RPR Lab Routine Encounter for supervision of other normal , unspecified trimester 01/26/2024 2:48 PM EDT ANEMIA CBC Lab Routine Encounter for supervision of other normal , unspecified trimester 01/26/2024 2:48 PM EDT DIFFERENTIAL, AUTOMATED Lab Routine Encounter for supervision of other normal , unspecified trimester 01/26/2024 2:48 PM EDT ANEMIA REFLEX CHEMISTRY HOLD Lab Routine Encounter for supervision of other normal , unspecified trimester 01/26/2024 2:48 PM EDT SYPHILIS ANTIBODY SCREEN Lab Routine Encounter for supervision of other normal , unspecified trimester 01/26/2024 2:48 PM EDT Health Maintenance Due Date Last [...] as of this encounter Visit Diagnoses Diagnosis Normal , third trimester- Primary Fourth-degree perineal laceration during delivery Fourth-degree perineal laceration, unspecified as to episode of care in Low-lying placenta Hemorrhage from placenta previa, unspecified as to episode of care Need for prophylactic vaccination with combined nfxduuprnk-zxgwwet-imqcmfuyw (DTP) vaccine Encounter for supervision of other normal , unspecified trimester documented in this encounter
--- OUTSIDE RECORDS SUMMARY | 2024-04-12 03:35 | External Medical Summary | Summary of Care ---
Author Name Unknown Organization [facility] Address [address] [facility] [place] [address] Phone [phone] Care Team Providers Care Sales Operations Coordinator Name Role Phone Unavailable Primary Care Provider Unavailabl e Reason for Visit * Reason Onset Date Comments Forms Request 02/16/2024 Encounter Details Date Type Department Care Team (Late st Contact Info) Description 02/16/2024 Telephone [facility] [address] [place] [address] Ema Cheney CRNP [address] [place] [address] Forms Request Allergies Active Allergy Reactions Criticality Noted Date Comments Sulfa Antibiotics Unknown 04/29/1999 As child documented as of this encounter (statuses as of 02/16/2024) Medications Medication Sig Dispensed Refills Start Date [...] as of this encounter (statuses as of 02/16/2024) Active Problems Problem Noted Date Diagnosed Date [...] as of this encounter (statuses as of 02/16/2024) Resolved Problems Problem Noted Date Diagnosed Date Resolved Date , normal first 08/03/201904/10 Overview: Tdap given today 12/21/19. Vida Nguyen LPN Concussion 01/19/2012 09/24/2017 documented as of this encounter (statuses as of 02/16/2024) Immunizations Name Administration Dates Next Due HPV [...] money to get more. Never true 08/28/2023 [place] Depression Scale Answer Date Recorded [place] Depression Scale Total 0 09/06/2023 The thought [...] encounter Miscellaneous Notes * Telephone Encounter - Sharlene Silva LPN - 02/16/2024 3:37 PM EDT FMLA forms completed and signed. Originals in triage. Copies in scan bin. documented in this encounter Plan of Treatment Upcoming Encounters Date Type Department Care Team (Late st Contact Info) Description 02/22/2024 8:45 AM EDT Office Visit Gynecology/Obstetrics Carmelo Zayas [address] [place] [address] Janell Mancini CNM [address] [place] [address] [place] [address] 02/22/2024 9:00 AM EDT [facility] [address] [place] [phone] Rigo Zayas [address] [place] [address] Health Maintenance Due Date Last Done Comments [...]
--- OUTSIDE RECORDS SUMMARY | 2024-04-12 03:35 | External Medical Summary | Summary of Care ---
Author Name Unknown Organization [facility] Address [address] [facility] [place] [address] Phone [phone] Care Team Providers Care Fulling Mill Operator Name Role Phone Unavailable Primary Care Provider Unavailabl e Encounter Details Date Type Department Care Team (Late st Contact Info) Description 02/17/2024 Telephone Gynecology/Obstetrics [facility] [address] [place] [address] Maurilio Zheng MD [address] [place] [address] Allergies Active Allergy Reactions Criticality Noted Date [...] 02/17/2024) Immunizations Name Administration Dates Next Due HPV [...] money to get more. Never true 08/28/2023 [place] Depression Scale Answer Date Recorded [place] Depression Scale Total 0 09/06/2023 The thought [...] Visit Gynecology/Obstetrics Carmelo Zayas [address] [place] [address] Janell Mancini CNM [address] [place] [address] [place] [address] 02/22/2024 9:00 AM EDT [facility] [address] [place] [phone] Rigo Zayas [address] [place] [address] Health Maintenance Due Date Last Done Comments Pneumococcal Vaccine: Pediatrics (0 to 5 Years) and At-Risk Patients (6 to 64 Years) (1 of 2 - PCV) 1999 Depression Screening 09/01/2022 09/01/2021 *SPIROMETRY ONCE FOR ASTHMA-ADULT 09/03/2022 COVID-19 Vaccine ( - 2022- season) 2023 HPV/Co-Test 2023 Influenza [...]
--- OUTSIDE RECORDS SUMMARY | 2024-04-12 03:35 | External Medical Summary | Summary of Care ---
Author Name Unknown Organization [facility] Address [address] [place] [address] Phone [phone] Care Team Providers Care Material Disposition Inspector Name Role Phone Unavailable Primary Care Provider Unavailabl e Reason for Visit * Reason Comments Blood Management Program Encounter Details Date Type Department Care Team (Late st Contact Info) Description 01/31/2024 Documentation Patient Blood Management, [place] [address] [place] [address] Gm Stone RN Allergies Active Allergy Reactions Criticality Noted Date Comments Sulfa Antibiotics Unknown 04/29/1999 As child documented as of this encounter (statuses as of 01/31/2024) Medications Medication Sig Dispensed Refills Start Date [...] before bedtime. 60 Tablet 3 01/27/2024 Active Vitamin B-12 1000 MCG Oral Tablet (Cyanocobalamin) Take 1 Tablet by mouth in the morning. 30 Tablet 5 01/31/2024 Active documented as of this encounter (statuses as of 01/31/2024) Active Problems Problem Noted Date Diagnosed Date [...] as of this encounter (statuses as of 01/31/2024) Resolved Problems Problem Noted Date Diagnosed Date Resolved Date , normal first 08/03/201904/10 Overview: Tdap given today 12/21/19. Vida Nguyen LPN Concussion 01/19/2012 09/24/2017 documented as of this encounter (statuses as of 01/31/2024) Immunizations Name Administration Dates Next Due HPV [...] money to get more. Never true 08/28/2023 [place] Depression Scale Answer Date Recorded [place] Depression Scale Total 0 09/06/2023 The thought [...] on file documented as of this encounter Progress Notes * Gm Stone RN - 01/31/2024 10:43 AM EDT REFERRAL - Patient Blood Management Name: Niki Rosa REQUESTING SERVICE: Lili Zayas OB REASON FOR REFERRAL: new evaluation outpatient, anemia in [place]: 04/13/24 Anemia Evaluation: Latest Reference Range & Units 01/26/24 14:48 HGB 12.0 - 15.3 g/dL 11.3 (L) HCT 36.0 - 45.2 % 33.6 (L) Iron 33 - 151 ug/dL 100 Iron Binding Capacity 250 - 425 ug/dL 464 (H) Transferrin Saturation Percent 15 - 55 % 22 Ferritin 13 - 150 ng/mL 19 Vitamin B12 232 - 1,245 pg/mL 282 Folic Acid >4.5 ng/mL >20.0 Immature Reticuloctye Fraction 2.5 - 20.6 % 15.9 Reticulocyte Hemoglobin 29.7 - 37.4 pg 34.6 Current Patient Medications: Medications that may impair hemostasis: none Medications that may impair iron absorption: none Patient Refused Blood Transfusion? (e.g. Orthodox): no Possible Contributing Factors: iron deficiency and vitamin B12 deficiency Treatment Recommendations: IV iron not indicated with hgb > 11 B12 1000mcg PO daily Continue PO iron as tolerated. Can consider taking every other day as able. Consider switching to ferrous sulfate liquid to increase tolerability. Increase dietary iron as able. Recheck CBC at routine interval ~4 week or as desired by OB. Re-refer to PBM if recheck hgb is <11. Discussed above with referring OB. Thank you for allowing Blood Management to participate in the care of this patient. documented in this encounter Plan of Treatment Upcoming Encounters Date Type Department Care Team (Antwan st Contact Info) Description 02/10/2024 4:30 PM EDT Office Visit Gynecology/Obstetrics Carmelo Zayas [address] [place] [address] Chandrika Hunter PA-C [address] [place] [address] Health Maintenance Due Date Last Done Comments [...]
--- OUTSIDE RECORDS SUMMARY | 2024-04-12 03:35 | External Medical Summary | Summary of Care ---
Author Name Unknown Organization [facility] [address] [facility] [address] Phone [phone] Care Team Providers Care Field Sales Engineer Name Role Phone Unavailable Primary Care Provider Unavailabl e Reason for Visit * Reason Comments Outpatient Testing Encounter Details Date Type Department Care Team (Late st Contact Info) Description 01/26/2024 1:50 PM EDT Laboratory Laboratory, Health system [address] [facility] [place] [phone] [facility] [address] [facility] [place] [address] Arrived Allergies Active Allergy Reactions Criticality Noted Date [...] laceration, forceps delivery. 8lb 11oz baby At [facility] does not want primary c/s, jerry [...] Overview: Tdap given today 12/21/19. Vida Nguyen, QUILTER FIXER Concussion 01/19/2012 09/24/2017 documented as of this encounter (statuses as of 01/26/2024) Immunizations Name Administration Dates Next Due HPV Vaccine, 4-Valent 06/19/2008,02/13/2008,01/2008 Meningococcal Conjugate Vacc ine (Menactra/Menveo) 12/13/2007 Seasonal Influenza, Split, I IV3, With Preserve, Inj 08/01/2012,07/14/2011,07/15/2010,07/02,08/24/2008,07/12/2007 TDAP (age 10 and older)(Boostrix) 12/21/2019 TDAP (age 11 and older)(Adacel) 09/18/2015 Varicella [...] money to get more. Never true 08/28/2023 [place] Depression Scale Answer Date Recorded [place] Depression Scale Total 0 09/06/2023 The thought [...] Description 01/26/2024 3:00 PM EDT Office Visit Gynecology/Obstetrics Carmelo Zayas [address] [place] [address] Ema Cheney CRNP [address] [place] [address] Health Maintenance Due Date Last Done Comments [...] Smear 06/19/2024 06/19/2021, 08/04/2017 DTaP,Tdap,and Td Vaccines (9 - Td or Tdap) 12/20/2029 12/21/2019, 09/18/2015, 06/05/2005, Additional history exists Hepatitis B Completed 07/08/1994, 01/10, 1993 MENINGOCOCCAL (MENACTRA/MENVEO) Aged Out 12/13/2007 No longer eligible based on patient's age to complete this topic GARDASIL-HPV IMMUNIZATION SERIES Completed 06/19/2008, 02/13/2008, 12/13/2007 documented as of this encounter Medical Devices Not on filedocumented as of this encounter
--- OUTSIDE RECORDS SUMMARY | 2024-04-12 03:35 | External Medical Summary | Summary of Care ---
Author Name Unknown Organization [facility] Address [address] [facility] [place] [address] Phone [phone] Care Team Providers Care Packaging Line Attendant Name Role Phone Unavailable Primary Care Provider Unavailabl e Reason for Referral * (Within 10 days (routine)) Specialty Diagnoses / Procedures Referred By Vivienne bradshaw Referred To Contact Ema Cheney CRNP [address] [place] [address] Referral ID Status Reason Start Date Expiration Date Visits Re quested Visits Authorized Question Answer Referral Priority Within 10 days (routine) Where should this appointment be scheduled? [facility] Encounter Details Date Type Department Care Team (Late st Contact Info) Description 01/27/2024 Telephone Gynecology/Obstetrics Carmelo Zayas [address] [place] [address] Ema Cheney CRNP [address] [place] [address] Allergies Active Allergy Reactions Criticality Noted Date [...] money to get more. Never true 08/28/2023 [place] Depression Scale Answer Date Recorded [place] Depression Scale Total 0 09/06/2023 The thought [...] encounter Miscellaneous Notes * Telephone Encounter - Comfort Gallegos LPN - 01/31/2024 10:59 AM EDT Patient notified and agreeable. Will continue to try and tolerate * Telephone Encounter - Ema Cheney CRNP - 01/31/2024 10:35 AM EDT Please make pt aware that it was my error to offer the IV iron. With a hemoglobin over 11, she is not a candidate for IV. The recommendation is oral iron as much as she can tolerate. Liquid iron is available, and can be better tolerated. She can also try high iron foods- red meats, green veggies, shredded wheat. Her B12 level is low, which can affect her iron. This is something we can supplement, and it very well may help her to feel better. [facility] [place] [facility] We should recheck her labs in about a month. * Telephone Encounter - Comfort Gallegos LPN - 01/31/2024 8:58 AM EDT Patient called asking if she can go forward with the IV iron infusions. She is not tolerating taking the oral iron. * Telephone Encounter - Radha Dias RN - 01/27/2024 3:58 PM EDT T/C from pt. Pt aware of VitronC sent to pharmacy and instructions. * Telephone Encounter - Ema Cheney CRNP - 01/27/2024 2:33 PM EDT Will send Vitron C to pharmacy. Take BID. Need to recheck CBC around 32-33w * Telephone Encounter - Sharlene Silva LPN - 01/27/2024 1:10 PM EDT TC to patient, she is just going to decline 3hr or fingersticks, not wanting to repeat 1 hr either, she knows she doesn't have gdm. She would like to avoid IV iron as she has bad experiences with IVs. She is not currently on any additional oral iron other than what is in her prenatals. She would like to try oral med first. Pharmacy pended. * Telephone Encounter - Ema Cheney CRNP - 01/27/2024 11:50 AM EDT She can try again, but: I have no way of knowing if her insurance will cover this or not. Eating prior to the test should NOT cause an elevated blood sugar. This is how your body responds to the sugar it is given. If she fails again, it will be recommended she either do the 3 hour or check her sugars. There are times later in that we have concerns of an undiagnosed GDM (macrosomia, polyhydramnios commonly, but there could be other reasons also) that she will be recommended to repeat thisagain. Also please make sure she is aware of the anemia and see if she is willing to do IV iron. * Telephone Encounter - Sharlene Silva LPN - 01/27/2024 9:59 AM EDT Patient adamantly refusing 3 hr or checking blood sugars. Advised she would then likely be considered GdM. "That's ridiculous". She ate sugary foods right before her 1 hour glucola and knows that's is why she didn't pass. She has to eat snacks often at home just to keep her blood sugar up. She would like to try the 1hr again if you would be agreeable. * Telephone Encounter - Sharlene Silva LPN - 01/27/2024 9:46 AM EDT left message for patient to call office * Telephone Encounter - Ema Cheney CRNP - 01/27/2024 8:18 AM EDT Please notify pt that glucola elevated (132). Needs 3hr GTT. Orders placed. She is also anemic. Recommend iron infusions. If agreeable please route back and I will place referral documented in this encounter Plan of Treatment Upcoming Encounters Date Type Department Care Team (Late st Contact Info) Description 02/10/2024 4:30 PM EDT Office Visit Gynecology/Obstetrics Carmelo Zayas [address] [place] [address] Chandrika Hunter PA-C [address] [place] [address] Scheduled Orders Name Type Priority Associated Diagnoses Orde r Schedule GESTATIONAL GLUCOSE TOLERANCE, 3 HOUR Lab Routine Abnormal glucose tolerance in mother complicating Expected: 01/28/2024 (Approximate), Expires: 01/26/2025 50-G GESTATIONAL GLUCOSE, 1 HOUR Lab Routine Abnormal glucose tolerance in mother complicating Encounter for supervision of other normal in third trimester Expected: 01/27/2024 (Approximate), Expires: 01/26/2025 Scheduled Referrals Name Type Priority Associated Diagnoses Orde r Schedule BLOOD MANAGEMENT REFERRAL Referral Within 10 days (routine) Antepartum anemia complicating Ordered: 01/31/2024 Health Maintenance Due Date Last Done Comments [...] as of this encounter Visit Diagnoses Diagnosis Abnormal glucose tolerance in mother complicating - Primary Abnormal maternal glucose tolerance, complicating , childbirth, or the puerperium, unspecified as to episode of care Antepartum anemia complicating Anemia, antepartum Encounter for supervision of other normal in third trimester documented in this encounter
--- OUTSIDE RECORDS SUMMARY | 2024-04-12 03:35 | External Medical Summary | Summary of Care ---
Author Name Unknown Organization [facility] Address [address] [facility] [place] [address] Phone [phone] Care Team Providers Care Ancillary Specialist Name Role Phone Unavailable Primary Care Provider Unavailabl e Reason for Visit * Reason Comments Return Visit Encounter Details Date Type Department Care Team (Late st Contact Info) Description 01/26/2024 3:00 PM EDT Office Visit Gynecology/Obstetric s Carmelo Zayas [address] [place] [address] Ema Cheney CRNP [address] [place] [address] Normal , third trimester*; Fourth-degree perineal laceration during delivery; Low-lying placenta; Need for prophylactic vaccination with combined wlvcykxlnq-mhdjuiq-cp rtussis (DTP) vaccine Allergies Active Allergy Reactions Criticality Noted Date [...] money to get more. Never true 08/28/2023 [place] Depression Scale Answer Date Recorded [place] Depression Scale Total 0 09/06/2023 The thought [...] Sign Reading Time Taken Comments Blood Pressure 112/64 01/26/2024 2:19 PM EDT Pulse - - Temperature - - Respiratory Rate - - Oxygen Saturation - - Inhaled Oxygen Concentration - - Weight 81.2 kg (179 lb) 01/26/2024 2:19 PM EDT Height 170.2 cm (5' 7") 01/26/2024 2:19 PM EDT Body Mass Index 28.04 01/26/2024 2:19 PM EDT documented in this encounter Progress Notes * Ema Cheney CRNP - 01/26/2024 2:35 PM EDT 28w6d C/o heartburn, Tums not helping. Recommend daily omeprazole. Baby is active. No contractions, bleeding, LOF. U/s today to f/u low lying placenta. Per tech, placental tip 4.6cm from os. Glucola, TDAP today. NEVILLE Garza documented in this encounter Nursing Notes * Jodi Dick LPN - 01/26/2024 2:33 PM EDT Patient here for tdap injection. Patient doing well no complaints. Injection given IM as ordered. Patient tolerated well. Patient to follow up as directed. Patient instructed to call if any complications. Patient verbalized understanding of instructions given and her follow up appt for 2 weeks Injection site: Left Deltoid Medication Source: Dispensed stock medication * Jodi Dick LPN - 01/26/2024 2:20 PM EDT 28w6d Pt doing glucola today No previa seen on US today Plac tip 4.6cm from os documented in this encounter Plan of Treatment Upcoming Encounters Date Type Department Care Team (Late st Contact Info) Description 02/10/2024 4:30 PM EDT Office Visit Gynecology/Obstetrics Carmelo Zayas [address] [place] [address] Chandrika Hunter PA-C [address] [place] [address] Health Maintenance Due Date Last Done Comments [...] care Need for prophylactic vaccination with combined mqqcmrhjmo-flgwjml-pjqggexfn (DTP) vaccine documented in this encounter
--- OUTSIDE RECORDS SUMMARY | 2024-04-12 03:36 | External Medical Summary ---
Author Name Unknown Address Unknown Organization K01:[facility] - [address] [place] [address] Laboratory Report Ordering Provider Test Date Status HUMBERTO HENDERSON 01/26/2024 14:48:42 Final Observation Date Value Abnormality Reference (Units ) Status Folic Acid 01/26/2024 14:48:42 >20.0 >4.5 (ng/ mL) Final Performing Location [facility] - [address] [place] [address]
--- OUTSIDE RECORDS SUMMARY | 2024-04-12 03:36 | External Medical Summary | Summary of Care ---
Author Name Unknown Organization [facility] Address [address] [facility] [place] [place] [address] Phone [phone] Care Team Providers Care Intrusion Analyst Name Role Phone Unavailable Primary Care Provider Unavailabl e Reason for Visit * Reason Comments Sinus Problem Pt states that her s inus infection has gotten worse Encounter Details Date Type Department Care Team (Latest Contact Info) Description 12/15/2023 4:40 PM EST Office Visit [facility] [address] [place] [phone] February, Sheldon You MD [address] [place] [address] Conjunctivitis of left eye, unspecified conjunctivitis type*; Acute recurrent frontal sinusitis Allergies Active Allergy Reactions Criticality Noted Date Comments Sulfa Antibiotics Unknown 04/29/1999 As child documented as of this encounter (statuses as of 12/15/2023) Medications Medication Sig Dispensed Refills Start Date [...] the morning. 90 Tablet 3 11/29/2023 Active methylPREDNISolone 4 MG Oral Tablet Therapy Pack (Medrol Dosepack) follow package directions 21 Tablet 0 12/10/2023 Active Cefuroxime Axetil 250 MG Oral Tablet (Ceftin)Indications:A cute recurrent frontal sinusitis Take 1 Tablet by mouth in the morning and 1 Tablet before bedtime. Do all this for 7 days. 14 Tablet 0 12/15/2023 12/22/2023 Active Ofloxacin 0.3 % Ophthalmic Solution (Ocuflox)Indications: Conjunctivitis of left eye, unspecified conjunctivitis type Instill 1 Drop into eye in the morning and 1 Drop at noon and 1 Drop in the evening and 1 Drop before bedtime. 5 mL 0 12/15/2023 Active documented as of this encounter (statuses as of 12/15/2023) Active Problems Problem Noted Date Diagnosed Date [...] as of this encounter (statuses as of 12/15/2023) Resolved Problems Problem Noted Date Diagnosed Date Resolved Date , normal first 08/03/201904/10 Overview: Tdap given today 12/21/19. Vida Nguyen LPN Concussion 01/19/2012 09/24/2017 documented as of this encounter (statuses as of 12/15/2023) Immunizations Name Administration Dates Next Due HPV [...] money to get more. Never true 08/28/2023 [place] Depression Scale Answer Date Recorded [place] Depression Scale Total 0 09/06/2023 The thought [...] Sign Reading Time Taken Comments Blood Pressure 128/84 12/15/2023 4:39 PM EST Pulse 89 12/15/2023 4:39 PM EST Temperature 36 C (96.8 F) 12/15/2023 4:39 PM EST Respiratory Rate 16 12/15/2023 4:39 PM EST Oxygen Saturation 99% 12/15/2023 4:39 PM EST Inhaled Oxygen Concentration - - Weight 76.2 kg (168 lb) 12/15/2023 4:39 PM EST Height 170.2 cm (5' 7") 12/15/2023 4:39 PM EST Body Mass Index 26.31 12/15/2023 4:39 PM EST documented in this encounter Progress Notes * Sheldon Lim MD - 12/15/2023 5:03 PM EST Images from the original note were not included. Assessment and Plan Treat conjunctivitis with ofloxacin. Treat sinusitis with cefuroxime. Push fluids. OTC medications. 1. Conjunctivitis of left eye, unspecified conjunctivitis type - Ofloxacin 0.3 % Ophthalmic Solution (Ocuflox); Instill 1 Drop into eye in the morning and 1 Drop at noon and 1 Drop in the evening and 1 Drop before bedtime. Dispense: 5 mL; Refill: 0 2. Acute recurrent frontal sinusitis - Cefuroxime Axetil 250 MG Oral Tablet (Ceftin); Take 1 Tablet by mouth in the morning and 1 Tabletbefore bedtime. Do all this for 7 days. Dispense: 14 Tablet; Refill: 0 Wrap-Up Follow up as needed. History of Present Illness The patient is a 28 year old female who is currently 23 weeks who presents for follow up. Patient is seen in office on 11/29/2023 for sinusitis type symptoms. She was treated with Singulairand Augmentin for 10 days. She presents today as symptoms have worsened despite treatment. Physical Exam Vitals: 12/15/23 1639 Temp: 36 C (96.8 F) Pulse: 89 Resp: 16 SpO2: 99% BP: 128/84 BMI: 26.31 Physical Exam Physical Exam Vitals reviewed. Constitutional: General: She is not in acute distress. HENT: Right Ear: Tympanic membrane normal. There is no impacted cerumen. Left Ear: Tympanic membrane normal. There is no impacted cerumen. Nose: Congestion present. Mouth/Throat: Mouth: Mucous membranes are moist. Pharynx: Posterior oropharyngeal erythema present. No oropharyngeal exudate. Eyes: Comments: Conjunctivitis of left eye. Cardiovascular: Rate and Rhythm: Normal rate and regular rhythm. Heart sounds: No murmur heard. Pulmonary: Effort: Pulmonary effort is normal. No respiratory distress. Breath sounds: Normal breath sounds. No wheezing. Skin: General: Skin is warm and dry. Neurological: Mental Status: She is alert. This note has been completed in part utilizing [employer] Speech Voice Recognition Software. Due to technical limitations of the software, grammatical errors, random word insertions, prounoun errors, and incomplete sentences may occur. Any formal questions or concerns about the content, text, or information contained within the body of this dictation should be directly addressed to the provider for clarification. documented in this encounter Nursing Notes * Lolita Greenberg CCMA - 12/15/2023 4:39 PM EST Niki Rosa is a 28 year old female who presents today for Chief Complaint Patient presents with Sinus Problem Pt states that her sinus infection has gotten worse documented in this encounter Plan of Treatment Upcoming Encounters Date Type Department Care Team (Late st Contact Info) Description 12/29/2023 3:00 PM EDT Office Visit Gynecology/Obstetrics [facility] [address] [place] [address] Ema Cheney CRNP [address] [place] [address] 01/26/2024 2:15 PM EDT Imaging Radiology [facility] 2nd [facility] [address] [place] [address] 01/26/2024 3:00 PM EDT Office Visit Gynecology/Obstetrics [facility] [address] [place] [address] Ema Cheney CRNP [address] [place] [address] Health Maintenance Due Date Last Done Comments Pneumococcal Vaccine: Pediatrics (0 to 5 Years) and At-Risk Patients (6 to 64 Years) (1 of 2 - PCV) 1999 Depression Screening 09/01/2022 09/01/2021 *SPIROMETRY ONCE FOR ASTHMA-ADULT 09/03/2022 COVID-19 Vaccine (1 - 2022- season) 2023 Influenza Vaccine (FLU shot) (#1) 2023 08/01/2012, 07/14/2011, 07/15/2010, Additional history exists HPV/Co-Test 2023 Cervical Cancer Screening 06/19/2024 Pap Smear 06/19/2024 [...] as of this encounter Visit Diagnoses Diagnosis Conjunctivitis of left eye, unspecified conjunctivitis type- Primary Acute recurrent frontal sinusitis Acute frontal sinusitis documented in this encounter
--- OUTSIDE RECORDS SUMMARY | 2024-04-12 03:36 | External Medical Summary ---
Author Name Unknown Address Unknown Organization K01:[facility] [facility] - [address] [place] [facility] [place] [address] Laboratory Report Ordering Provider Test Date Status HUMBERTO HENDERSON 01/26/2024 14:48:42 Final Observation Date Value Abnormality Reference (Units ) Status SYNC LEUKOCYTES IN BLOOD BY AUTOMATED COUNT 01/26/2024 14:48:42 9.81 4.00-10.80 (K/uL) Final Segs 01/26/2024 14:48:42 75.0 40.0-75.0 (%) Final Lymphs % 01/26/2024 14:48:42 19.2 18.0-42.0 (%) Final Monos 01/26/2024 14:48:42 4.2 1.0-11.0 (%) Final Eosinophils 01/26/2024 14:48:42 0.4 0.0-6.0 (%) Final Basos 01/26/2024 14:48:42 0.3 0.0-2.0 (%) Final Immature Granulocyte, Percent 01/26/2024 14:48:42 0.9 0.0-2.0 (%) Final Absolute Segs 01/26/2024 14:48:42 7.36 1.80-7.70 (K/uL) Final Lymphs, absolute 01/26/2024 14:48:42 1.88 1.00-4.80 (K/ul) Final Monos, Abs 01/26/2024 14:48:42 0.41 0.00-1.10 (K/uL) Final Eos, Abs 01/26/2024 14:48:42 0.04 0.00-0.70 (K/uL) Final Basos, Abs 01/26/2024 14:48:42 0.03 0.00-0.20 (K/uL) Final Immature Granulocytes, Number 01/26/2024 14:48:42 0.09 0.00-0.20 (K/uL) Final Performing Location [facility] [place] - [address] [place], [place] [address]
--- OUTSIDE RECORDS SUMMARY | 2024-04-12 03:36 | External Medical Summary | Summary of Care ---
Author Name Unknown Organization [facility] Address [address] [facility] [place] [address] Phone [phone] Care Team Providers Care Mental Health Program Manager Name Role Phone Unavailable Primary Care Provider Unavailabl e Reason for Visit * Reason Comments Return Visit Encounter Details Date Type Department Care Team (Late st Contact Info) Description 12/29/2023 3:00 PM EDT Office Visit Gynecology/Obstetric s [facility] Zayas [address] [place] [address] Ema Cheney CRNP [address] [place] [address] Encounter for supervision of other normal , unspecified trimester*; Fourth-degree perineal laceration during delivery; Low-lying placenta Allergies Active Allergy Reactions Criticality Noted Date Comments Sulfa Antibiotics Unknown 04/29/1999 As child documented as of this encounter (statuses as of 12/29/2023) Medications Medication Sig Dispensed Refills Start Date [...] as of this encounter (statuses as of 12/29/2023) Active Problems Problem Noted Date Diagnosed Date Low-lying placenta 12/01/2023 Overview: 1.2 cm from internal os at 20 weeks Encounter for supervision of other normal , unspecified trimester 09/06/2023 Fourth-degree perineal laceration during deliver y 09/06/2023 Overview: 4th degree laceration, forceps delivery. 8lb 11oz baby At B does not want primary c/s, jerry like 39w IOL. 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 Vida Nguyen LPN Concussion 01/19/2012 09/24/2017 documented as of this encounter (statuses as of 12/29/2023) Immunizations Name Administration Dates Next Due HPV [...] money to get more. Never true 08/28/2023 [place] Depression Scale Answer Date Recorded [place] Depression Scale Total 0 09/06/2023 The thought [...] Sign Reading Time Taken Comments Blood Pressure 98/68 12/29/2023 2:47 PM EDT Pulse - - Temperature - - Respiratory Rate - - Oxygen Saturation - - Inhaled Oxygen Concentration - - Weight 77.1 kg (170 lb) 12/29/2023 2:47 PM EDT Height 170.2 cm (5' 7") 12/29/2023 2:47 PM EDT Body Mass Index 26.63 12/29/2023 2:47 PM EDT documented in this encounter Progress Notes * Ema Cheney CRNP - 12/29/2023 3:20 PM EDT 24w6d Asking what she can take for sinus congestion, recommended Sudafed. Due for growth u/s with next visit, as well as Glucola. Baby is active. No contractions, bleeding, LOF. NEVILLE Garza documented in this encounter Nursing Notes * Sharlene Silva LPN - 12/29/2023 3:05 PM EDT 24w6d Denies concerns documented in this encounter Plan of Treatment Upcoming Encounters Date Type Department Care Team (Late st Contact Info) Description 01/26/2024 1:50 PM EDT Laboratory Laboratory, [facility] [address] [facility] [place] [phone] [facility] [place] [address] [address] [place] [address] 01/26/2024 2:15 PM EDT Imaging Radiology [facility] 2nd [facility] [address] [place] [address] 01/26/2024 3:00 PM EDT Office Visit Gynecology/Obstetrics [address] [place] [address] Ema Cheney CRNP [address] [place] [address] Scheduled Orders Name Type Priority Associated Diagnoses Orde r Schedule 50-G GESTATIONAL GLUCOSE, 1 HOUR Lab Routine Encounter for supervision of other normal , unspecified trimester Expected: 01/29/2024 (Approximate), Expires: 12/28/2024 CBC WITH WBC DIFFERENTIAL AND ANEMIA REFLEX WORKUP Lab Routine Encounter for supervision of other normal , unspecified trimester Expected: 01/29/2024 (Approximate), Expires: 12/28/2024 SYPHILIS ANTIBODY SCREEN WITH REFLEX TO RPR Lab Routine Encounter for supervision of other normal , unspecified trimester Expected: 01/29/2024 (Approximate), Expires: 12/28/2024 Health Maintenance Due Date Last Done Comments Pneumococcal Vaccine: Pediatrics (0 to 5 Years) and At-Risk Patients (6 to 64 Years) (1 of 2 - PCV) 1999 Depression Screening 09/01/2022 09/01/2021 *SPIROMETRY ONCE FOR ASTHMA-ADULT 09/03/2022 COVID-19 Vaccine ( - season) 2023 Influenza Vaccine (FLU shot) (#1) [...] previa, unspecified as to episode of care documented in this encounter
--- OUTSIDE RECORDS SUMMARY | 2024-04-12 03:36 | External Medical Summary | Summary of Care ---
Author Name Unknown Organization [facility] Address [address] [place] [place] [address] Phone [phone] Care Team Providers Care Personnel Officer Name Role Phone Unavailable Primary Care Provider Unavailabl e Reason for Visit * Reason Onset Date Comments Spotting with 10/14/2023 Review w [facility] Dr. Jj. Encounter Details Date Type Department Care Team (Late st Contact Info) Description 10/14/2023 Telephone Gynecology/Obstetrics [facility] [address] [place] [address] Robbie Jj MD [address] [facility] [place] [address] Spotting with (Review with Dr. López.. Allergies Active Allergy Reactions Criticality Noted Date Comments Sulfa Antibiotics Unknown 04/29/1999 As child documented as of this encounter (statuses as of 10/14/2023) Medications Medication Sig Dispensed Refills Start Date End Date Status 6.75-0.2 MG Oral Tablet Take by mouth. 0 Active Ondansetron HCl 8 MG Oral TabletIndications:Enc ounter for supervision of other normal in first trimester,Nausea and vomiting during Take 1 Tablet by mouth in the morning and 1 Tablet at noon and 1 Tablet before bedtime. 40 Tablet 3 09/06/2023 Active documented as of this encounter (statuses as of 10/14/2023) Active Problems Problem Noted Date Diagnosed Date Encounter for supervision of other normal , [...] as of this encounter (statuses as of 10/14/2023) Resolved Problems Problem Noted Date Diagnosed Date Resolved Date , normal first 08/03/201904/10 Overview: Tdap given today 12/21/19. Vida Nguyen LPN Concussion 01/19/2012 09/24/2017 documented as of this encounter (statuses as of 10/14/2023) Immunizations Name Administration Dates Next Due DTaP Dipth/Tet/Acell Pertussis (Infanrix), Peds 04/29/1999,07/12/1995,07/08/1994,04/20,02/05/1994 HPV Vaccine, 4-Valent 06/19/2008,02/13/2008,01/2008 Haemophilius B (HIB), unspecified 02/26/1995 Hepatitis B Vaccine 07/08/1994,02/05/1994,1993 MMR - Measles/Mumps/Rubella Vaccine 04/29/1999,0 02/26/1995 Meningococcal Conjugate Vacc ine (Menactra/Menveo) 12/13/2007 OPV - Polio Virus Vaccine (Oral) 999,07/08/1994,04/20/1994,02/05 PPD 12/05/1994 Seasonal Influenza, Split, I IV3, With Preserve, Inj 08/01/2012,07/14/2011,07/15/2010,07/02,08/24/2008,07/12/2007 TDAP (age 10 and older)(Boostrix) 12/21/2019, TDAP (age 11 and older)(Adacel) 09/18/2015 Varicella [...] money to get more. Never true 08/28/2023 [place] Depression Scale Answer Date Recorded [place] Depression Scale Total 0 09/06/2023 The thought [...] as of this encounter Miscellaneous Notes * Addendum Note - Julius Kirk RN - 10/14/2023 1:23 PM ESTAddended by: JULIUS KIRK on: 10/14/2023 01:23 PM Modules accepted: Orders * Telephone Encounter - Julius Kirk RN - 10/14/2023 1:07 PM EST Patient calling in concerned about vaginal bleeding.Patient 14w0d called c/o vaginal bleeding. Is there any pain associated with your bleeding? Had abd pain x 1 week but does not currently have any abd or pelvic pain. Have you had a recent US? no Are you experiencing any vaginal itching, burning, ordor, or other dischage? no Have you had recent intercourse or vaginal exam? no Denies any pain or heavy bleeding at this time. States this started 3 days ago, she passed some tissue, then she had spotting the past 2 days, then today she passed a small "chunk" of something. Will review with Dr. Jj. Patient aware to call back with any changes in the mean time Reviewed patient with Dr. Jj. He would like patient to have an US today or tomorrow. Called patient and made her aware. Gave patient ER precautions and advised her to call back with any questions or concerns. documented in this encounter Plan of Treatment Upcoming Encounters Date Type Department Care Team (Late st Contact Info) Description 11/02/2023 2:15 PM EST [facility] [address] [place] [address] Ema Cheney CRNP [address] [place] [address] Scheduled Orders Name Type Priority Associated Diagnoses Orde r Schedule US PREG LIMITED 1 OR MORE FETUSES Medical Imaging Routine Vaginal bleeding in Expected: 10/14/2023, Expires: 11/14/2024 Health Maintenance Due Date Last Done Comments COVID-19 Vaccine (#1) 06/05/1994 Pneumococcal Vaccine: Pediatrics (0 to 5 Years) and At-Risk Patients (6 to 64 Years) (1 - PCV) 1999 Depression Screening 09/01/2022 09/01/2021 *SPIROMETRY ONCE FOR ASTHMA-ADULT 09/03/2022 Influenza Vaccine (FLU shot) (#1) 2023 08/01/2012, 07/14/2011, 07/15/2010, Additional history exists Pap Smear 06/19/2024 06/19/2021, 08/04/2017 DTaP,Tdap,and Td [...] as of this encounter Visit Diagnoses Diagnosis Vaginal bleeding in - Primary Unspecified antepartum hemorrhage, unspecified as to episode of care documented in this encounter
--- OUTSIDE RECORDS SUMMARY | 2024-04-12 03:36 | External Medical Summary ---
Author Name Unknown Address Unknown Organization K01:[facility] - [address] [place] [address] Laboratory Report Ordering Provider Test Date Status HUMBERTO HENDERSON 01/26/2024 14:48:42 Final Observation Date Value Abnormality Reference (Units ) Status Vitamin B12 01/26/2024 14:48:42 [phone] (pg/mL) Final Performing Location [facility] - [address] [place] [address]
--- OUTSIDE RECORDS SUMMARY | 2024-04-12 03:36 | External Medical Summary | Summary of Care ---
Author Name Unknown Organization [facility] Address [address] [place] [facility] [place] [address] Phone [phone] Care Team Providers Care Mechanical Unit Repairer Name Role Phone Unavailable Primary Care Provider Unavailabl e Reason for Visit * Reason Onset Date Comments Spotting with 10/14/2023 Review w [facility] Dr. Jj. Encounter Details Date Type Department Care Team (Late st Contact Info) Description 10/14/2023 Telephone Gynecology/Obstetrics [facility] [address] [place] [address] Robbie Jj MD 132 [facility] [place] [address] Spotting with (Review with Dr. López.. Allergies [...] money to get more. Never true 08/28/2023 [place] Depression Scale Answer Date Recorded [place] Depression Scale Total 0 09/06/2023 The thought [...] Team (Late st Contact Info) Description 10/14/2023 2:15 PM EST Imaging Radiology [facility] 2nd [facility] [address] [facility] [place] [address] 11/02/2023 2:15 PM EST Office Visit Gynecology/Obstetrics [facility] [address] [facility] [place] [address] Ema Cheney CRNP 132 [facility] [place] [address] Scheduled Orders Name Type Priority Associated Diagnoses [...]
--- OUTSIDE RECORDS SUMMARY | 2024-04-12 03:36 | External Medical Summary ---
Author Name Unknown Address Unknown Organization [id number]:[facility] [place] [facility] - [address] [place] [address] Laboratory Report Ordering Provider Test Date Status HUMBERTO HENDERSON 01/26/2024 14:48:42 Final Observation Date Value Abnormality Reference (Units ) Status Glucose [Moles/volume] in Serum or Plasma --1 hour post 50 g glucose PO 01/26/2024 14:48:42 132 Above high normal 70-129 (mg/dL) Final Performing Location [facility] [facility] - [address] [place] [address]
--- OUTSIDE RECORDS SUMMARY | 2024-04-12 03:36 | External Medical Summary ---
Author Name Unknown Address Unknown Organization K01[facility] [address] [place] [address] Laboratory Report Ordering Provider Test Date Status HUMBERTO HENDERSON 01/26/2024 14:48:42 Final Observation Date Value Abnormality Reference (Units ) Status Treponema pallidum Ab [Presence] in Serum by Immunoassay 01/26/2024 14:48:42 Nonreactive Nonreactive Final No serologic evidence of syp hilis. No additional testing clinicially indicated at this time. Consider repeat testing in 2-4 weeks if acute or primary syphilis is suspected. Performing Location [facility] [place] [address] [place] [address]
--- OUTSIDE RECORDS SUMMARY | 2024-04-12 03:36 | External Medical Summary | Summary of Care ---
Author Name Unknown Organization [facility] [address] [address] Phone [phone] Care Team Providers Care Antisqueak Applier Name Role Phone Unavailable Primary Care Provider Unavailabl e Reason for Visit * Reason Comments Eye Problem Encounter Details Date Type Department Care Team (Latest Contact Info) Description 11/28/2023 8:40 AM EST [facility] [address] [place] [address] Kenji Hair PA-C [address] [place] [address] Acute bacterial conjunctivitis of left eye* Allergies Active Allergy Reactions Criticality Noted Date Comments Sulfa Antibiotics Unknown 04/29/1999 As child documented as of this encounter (statuses as of 11/28/2023) Medications Medication Sig Dispensed Refills Start Date End Date Status 6.75-0.2 MG Oral Tablet Take by mouth. 0 Active Ondansetron HCl 8 MG Oral TabletIndications:Enco unter for supervision of other normal in first trimester,Nausea and vomiting during Take 1 Tablet by mouth in the morning and 1 Tablet at noon and 1 Tablet before bedtime. 40 Tablet 3 09/06/2023 Active Erythromycin 5 MG/GM Ophthalmic OintmentIndications:Ac jarrod bacterial conjunctivitis of left eye Instill into the left eye 4 times a day for 10 days. Instill thin ribbon 3.5 g 0 11/28/2023 12/08/2023 Active documented as of this encounter (statuses as of 11/28/2023) Active Problems Problem Noted Date Diagnosed Date [...] as of this encounter (statuses as of 11/28/2023) Resolved Problems Problem Noted Date Diagnosed Date Resolved Date , normal first 08/03/201904/10 Overview: Tdap given today 12/21/19. Vida Nguyen, ARUN Concussion 01/19/2012 09/24/2017 documented as of this encounter (statuses as of 11/28/2023) Immunizations Name Administration Dates Next Due HPV [...] money to get more. Never true 08/28/2023 [place] Depression Scale Answer Date Recorded [place] Depression Scale Total 0 09/06/2023 The thought [...] as of this encounter Progress Notes * Kenji Hair PA-C - 11/28/2023 8:31 AM EST Subjective Niki Rosa is a 27 year old female. Chief Complaint Patient presents with Eye Problem HPI: Patient location: HOME. I was not in a hospital or clinic location. After connecting through [employer], patient was verified with two unique identifiers. Patient (or authorized legal community health program representative) was then informed that this was a Telemedicine visit and being conducted confidentially over secure lines. Methods to assure confidentiality were taken. Patient acknowledged consent and understanding of privacy and security of the Telemedicine visit. The patient agreed to participate. Niki started with left eye redness/drainage Matting am has been noted No visual changes from baseline Her child recently had pink eye as well. 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 Instill thin ribbon 3.5 g 0 6.75-0.2 MG Oral Tablet Take by mouth. Ondansetron HCl 8 MG Oral Tablet Take 1 Tablet by mouth in the morning and 1 Tablet at noon and 1 Tablet before bedtime. 40 Tablet 3 No current facility-administered medications for this visit. Past Medical History: Diagnosis Date Known health problems: none Past Surgical History: Procedure Laterality Date EXCISE/REPAIR MOUTH LESION, SIMPLE N/A 08/12/2022 EXCISION LESION VESTIBULE OF MOUTH WITH SIMPLE REPAIR performed by Lindy Stack MD at [facility] INCISION OF EARDRUM 10/11/95 Myringotomy Review of patient's allergies indicates: Allergen Reactions Sulfa Antibiotics Unknown As child Family History Problem Relation Age of Onset Arthritis Father rheumatoid Hypertension Mother Diabetes Grandmother (Maternal) renal failure Hypertension Grandmother (Maternal) Heart Disorder Grandfather (Paternal) Heart Disorder Uncle (Unspecified) Heart Disorder Uncle (Unspecified) Diabetes Grandmother (Paternal) Muscular dystrophy Grandfather (Maternal) Muscular dystrophy Aunt (Maternal) Family Status Relation Status Fa (Not Specified) Mo (Not Specified) MGMA (Not Specified) PGFA (Not Specified) UNCLE (Not Specified) UNCLE (Not Specified) PGMA (Not Specified) MGFA (Not Specified) MAUNT (Not Specified) Social History Socioeconomic History Marital status: Spouse name: Not on file Number of children: Not on file Years of education: Not on file Highest education level: Not on file Occupational History 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 Tobacco Use Smoking status: Never Smokeless tobacco: Never Vaping Use Vaping Use: Never used Substance and Sexual Activity Alcohol use: Yes Comment: rare Drug use: No Sexual activity: Yes Partners: Male Other Topics Concern Not on file Social History Narrative Not on file Social Determinants of Health Financial Resource Strain: Not on file Food Insecurity: No Food Insecurity (08/28/2023) Hunger Vital Sign Worried About Running Out of Food in the Last Year: Never true Ran Out of Food in the Last Year: Never true Transportation Needs: Not on file Physical Activity: Not on file Stress: Not on file Social Connections: Not on file Intimate Partner Violence: Not on file Housing Stability: Not on file Review of Systems Constitutional: Negative for fever. Eyes: Positive for discharge and redness. Negative for visual disturbance. All other systems reviewed and are negative. Objective LMP 07/08/2023 Physical Exam Constitutional: Appearance: Normal appearance. She is not toxic-appearing. Eyes: General: Right eye: No discharge. Left eye: Discharge present. Extraocular Movements: Extraocular movements intact. Comments: Left conjunctival erythema, scant drainage Pulmonary: Effort: Pulmonary effort is normal. No respiratory distress. Neurological: Mental Status: She is alert. Psychiatric: Mood and Affect: Mood normal. Behavior: Behavior normal. ASSESSMENT/PLAN: Acute bacterial conjunctivitis of left eye (Primary) - Erythromycin 5 MG/GM Ophthalmic Ointment; Instill into the left eye 4 times a day for 10 days. Instill thin ribbon Discussed. Treat topically as above Warm moist compresses at intervals Frequent hand washing Will need to be seen in clinic if failure to improve or worsening Kenji Hair PA-C documented in this encounter Plan of Treatment Upcoming Encounters Date Type Department Care Team (Late st Contact Info) Description 11/29/2023 7:40 AM EST Office Visit [facility] [address] [place] [phone] Bryan Styles MD [address] [place] [address] 12/01/2023 9:45 AM EST Imaging Radiology [facility] [address] [facility] [place] [address] 12/01/2023 11:30 AM EST Office Visit Gynecology/Obstetrics [facility] [address] [facility] [place] [address] Valerie Cardoso CRNP [address] [facility] [place] [address] Health Maintenance Due Date Last Done Comments Pneumococcal Vaccine: Pediatrics (0 to 5 Years) and At-Risk Patients (6 to 64 Years) (1 of 2 - PCV) 1999 Depression Screening 09/01/2022 09/01/2021 *SPIROMETRY ONCE FOR ASTHMA-ADULT 09/03/2022 COVID-19 Vaccine ( - 2022- season) 2023 Influenza Vaccine (FLU [...] as of this encounter Visit Diagnoses Diagnosis Acute bacterial conjunctivitis of left eye- Primary documented in this encounter
--- OUTSIDE RECORDS SUMMARY | 2024-04-12 03:36 | External Medical Summary ---
Author Name Unknown Address Unknown Organization K01:LABORATORY [facility] [place] - [address] [place], [place] [address] [address] Laboratory Report Ordering Provider Test Date Status ISI HENDERSONAIL 01/26/2024 14:48:42 Final Observation Date Value Abnormality Reference (Units ) Status WBC, Total 01/26/2024 14:48:42 9.81 4.00-10.8 0 (K/uL) Final RBC 01/26/2024 14:48:42 3.52 3.85-5.15 (M/uL) Final Hemoglobin 01/26/2024 14:48:42 11.3 Below low normal 12 .0-15.3 (g/dL) Final Anemia reflex testing trigge rs on a HGB < 12.0 for Females and HGB < 13.0 for Males in accordance with the WHO Anemia Guidelines
Anemia reflex testing triggers on a HGB < 12.0 for Females and HGB < 13.0 for Males in accordance with the WHO Anemia Guidelines HCT 01/26/2024 14:48:42 33.6 Below low normal 36. 0-45.2 (%) Final MCV 01/26/2024 14:48:42 95.5 81.5-97.5 (fL) Final MCH 01/26/2024 14:48:42 32.1 27.0-34.0 (pg) Final MCHC 01/26/2024 14:48:42 33.6 32.0-36.0 (g/dL) Final RDW 01/26/2024 14:48:42 12.9 11.5-15.5 (%) Final Platelets 01/26/2024 14:48:42 263 140-400 (K /uL) Final MPV 01/26/2024 14:48:42 10.0 6.6-11.1 ( fL) Final Nucleated erythrocytes/100 leukocytes [Ratio] in Blood by Automated count 01/26/2024 14:48:42 0 <=0 (/100 WBCs) Final Performing Location LABORATORY [facility] [place] - [address] [facility] [address]
--- OUTSIDE RECORDS SUMMARY | 2024-04-12 03:36 | External Medical Summary | Summary of Care ---
Author Name Unknown Organization [facility] Address [address] [facility] [place] [address] Phone [phone] Care Team Providers Care Bird Raiser Name Role Phone Unavailable Primary Care Provider Unavailabl e Reason for Visit * Reason Comments Return Visit Encounter Details Date Type Department Care Team (Late st Contact Info) Description 12/01/2023 11:30 AM EST Office Visit Gynecology/Obstetric s [facility] [address] [place] [address] BackValerie newell CRNP [address] [place] [address] Encounter for supervision of other normal , unspecified trimester*; Fourth-degree perineal laceration during delivery; Low-lying placenta Allergies Active Allergy Reactions Criticality Noted Date Comments Sulfa Antibiotics Unknown 04/29/1999 As child documented as of this encounter (statuses as of 12/01/2023) Medications Medication Sig Dispensed Refills Start Date [...] 09/06/2023 Active Erythromycin 5 MG/GM Ophthalmic OintmentIndications:Ac [place] bacterial conjunctivitis of left eye Instill into the left eye 4 times a day for 10 days. Instill thin ribbon 3.5 g 0 11/28/2023 12/08/2023 Active Montelukast Sodium 10 MG Oral Tablet (Singulair) Take 1 Tablet by mouth in the morning. 90 Tablet 3 11/29/2023 Active Amoxicillin-Pot Clavulanate 875-125 MG Oral Tablet (Augmentin) Take 1 Tablet by mouth in the morning and 1 Tablet before bedtime. Do all this for 10 days. 20 Tablet 0 11/29/2023 12/09/2023 Active documented as of this encounter (statuses as of 12/01/2023) Active Problems Problem Noted Date Diagnosed Date Low-lying placenta 12/01/2023 Overview: 1.2 cm from internal os at 20 weeks Encounter for supervision of other normal , unspecified trimester 09/06/2023 Fourth-degree perineal laceration during deliver y 09/06/2023 Overview: 4th degree laceration, forceps delivery. 8lb 11oz baby At [facility] does not want primary c/s, jerry like 39w IOL. Viral URI with cough 10/15/2021 Post viral asthma 10/15/2021 ADVANCE DIRECTIVE INFORMATION 07/27/2006 Overview: Not applicable Estimated Date of Delivery Comme nts Yes 04/13/2024 Based on last me nstrual period of 07/08/2023 documented as of this encounter (statuses as of 12/01/2023) Resolved Problems Problem Noted Date Diagnosed Date Resolved Date , normal first 08/03/201904/10 Overview: Tdap given today 12/21/19. Vida Nguyen, ARUN Concussion 01/19/2012 09/24/2017 documented as of this encounter (statuses as of 12/01/2023) Immunizations Name Administration Dates Next Due HPV [...] money to get more. Never true 08/28/2023 [place] Depression Scale Answer Date Recorded [place] Depression Scale Total 0 09/06/2023 The thought [...] Sign Reading Time Taken Comments Blood Pressure 104/62 12/01/2023 11:19 AM EST Pulse - - Temperature - - Respiratory Rate - - Oxygen Saturation - - Inhaled Oxygen Concentration - - Weight 73 kg (161 lb) 12/01/2023 11:19 AM EST Height - - Body Mass Index 24.49 11/29/2023 7:41 AM EST documented in this encounter Progress Notes * Valerie Cardoso CRNP - 12/01/2023 11:22 AM EST 20w6d Anatomy scan today; report shows low lying placenta, tip 1.2 cm from internal os. Other findings normal. Having a boy! No bleeding, cramping. + movement. Discussed low lying placenta w/pt, recommend pelvic rest and to call the office with any vaginal bleeding. Plan repeat u/s at 28 weeks to reevaluate. She is agreeable. Declines quad screen. Return in 4 weeks. NEVILLE Smtih * Belkis Landis LPN - 12/01/2023 11:20 AM EST 20w6d Denies vaginal bleeding/rom + movement Anatomy scan today No new concerns documented in this encounter Plan of Treatment Upcoming Encounters Date Type Department Care Team (Late st Contact Info) Description 12/29/2023 3:00 PM EDT Office Visit Gynecology/Obstetrics [facility] [address] [place] [address] Ema Cheney CRNP [address] [place] [address] 01/26/2024 2:15 PM EDT Imaging Radiology [facility] 2nd [facility] [address] [place] [address] 01/26/2024 3:00 PM EDT Office Visit Gynecology/Obstetrics [facility] [address] [place] [address] Ema Cheney CRNP [address] [place] [address] Scheduled Orders Name Type Priority Associated Diagnoses Orde r Schedule US PREG LIMITED 1 OR MORE FETUSES Medical Imaging Routine Encounter for supervision of other normal , unspecified trimester Low-lying placenta Expected: 01/26/2024, Expires: 12/29/2024 Health Maintenance Due Date Last Done Comments [...]
--- OUTSIDE RECORDS SUMMARY | 2024-04-12 03:36 | External Medical Summary | Summary of Care ---
Author Name Unknown Organization [facility] Address [address] [facility] [place] [address] Phone [phone] Care Team Providers Care Plant Safety Engineer Name Role Phone Unavailable Primary Care Provider Unavailabl e Encounter Details Date Type Department Care Team (Late st Contact Info) Description 12/17/2023 Telephone Gynecology/Obstetrics [facility] [address] [place] [address] Robbie Jj MD [address] [place] [address] Allergies Active Allergy Reactions Criticality Noted Date Comments Sulfa Antibiotics Unknown 04/29/1999 As child documented as of this encounter (statuses as of 12/17/2023) Medications Medication Sig Dispensed Refills Start Date [...] package directions 21 Tablet 0 12/10/2023 Active Ofloxacin 0.3 % Ophthalmic Solution (Ocuflox)Indications: Conjunctivitis of left eye, unspecified conjunctivitis type Instill 1 Drop into eye in the morning and 1 Drop at noon and 1 Drop in the evening and 1 Drop before bedtime. 5 mL 0 12/15/2023 Active Cefuroxime Axetil 250 MG Oral Tablet (Ceftin)Indications:A cute recurrent frontal sinusitis Take 1 Tablet by mouth in the morning and 1 Tablet before bedtime. 14 Tablet 0 12/16/2023 Active documented as of this encounter (statuses as of 12/17/2023) Active Problems Problem Noted Date Diagnosed Date Low-lying placenta 12/01/2023 Overview: 1.2 cm from internal os at 20 weeks Encounter for supervision of other normal , unspecified trimester 09/06/2023 Fourth-degree perineal laceration during deliver y 09/06/2023 Overview: 4th degree laceration, forceps delivery. 8lb 11oz baby At [facility] does not want primary c/s, jerry like 39w IOL. 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 Vida Nguyen LPN Concussion 01/19/2012 09/24/2017 documented as of this encounter (statuses as of 12/17/2023) Immunizations Name Administration Dates Next Due HPV [...] money to get more. Never true 08/28/2023 [place] Depression Scale Answer Date Recorded [place] Depression Scale Total 0 09/06/2023 The thought [...] Telephone Encounter - Beatriz Ji RN - 12/17/2023 8:05 AM EST Patient calling in about concerns with a fall at 23w1d. She fell last night over a baby gate, no vaginal bleeding , no severe pain. Is sore on abdomen due to stretching when she fell. Did not fall onstomach at all, states that she caught herself. Advised patient that typically after fall, symptomswould occur within a few hours. Advised to monitor at this time and contact office with any changesor new concerns. documented in this encounter Plan of Treatment Upcoming Encounters Date Type Department Care Team (Late st Contact Info) Description 12/29/2023 3:00 PM EDT Office Visit Gynecology/Obstetrics [facility] [address] [place] [address] Ema Cheney CRNP [address] [place] [address] 01/26/2024 2:15 PM EDT Imaging Radiology [facility] 2nd [facility] [address] [place] [address] 01/26/2024 3:00 PM EDT Office Visit Gynecology/Obstetrics [facility] [address] [place] [address] Ema Cheney CRNP [address] [place] [address] Health Maintenance Due Date Last Done Comments [...]
--- OUTSIDE RECORDS SUMMARY | 2024-04-12 03:36 | External Medical Summary ---
Author Name Unknown Address Unknown Organization K01:[facility] - [address] [place] [address] Laboratory Report Ordering Provider Test Date Status HUMBERTO HENDERSON 01/26/2024 14:48:42 Final Observation Date Value Abnormality Reference (Units ) Status TSH 01/26/2024 14:48:42 0.80 0.27-4.20 (uIU/mL) Final Performing Location [facility] - [address] [place] [address]
--- OUTSIDE RECORDS SUMMARY | 2024-04-12 03:36 | External Medical Summary | Summary of Care ---
Author Name Unknown Organization [facility] Address [address] [place] [facility] [place] [address] Phone [phone] Care Team Providers Care Watershed Manager Name Role Phone Unavailable Primary Care Provider Unavailabl e Reason for Visit * Reason Comments Acute [place] eye, sinus infe ction Encounter Details Date Type Department Care Team (Latest Contact Info) Description 11/29/2023 7:40 AM EST Office Visit [facility] [address] [place] [id number] Bryan Styles MD [address] [place] [address] Acute conjunctivitis of both eyes, unspecified acute conjunctivitis type*; Chronic maxillary sinusitis; Post viral asthma; Encounter for supervision of other normal , unspecified trimester Allergies Active Allergy Reactions Criticality Noted Date Comments Sulfa Antibiotics Unknown 04/29/1999 As child documented as of this encounter (statuses as of 11/29/2023) Medications Medication Sig Dispensed Refills Start Date [...] as of this encounter (statuses as of 11/29/2023) Active Problems Problem Noted Date Diagnosed Date [...] as of this encounter (statuses as of 11/29/2023) Resolved Problems Problem Noted Date Diagnosed Date Resolved Date , normal first 08/03/201904/10 Overview: Tdap given today 12/21/19. Vida Nguyen LPN Concussion 01/19/2012 09/24/2017 documented as of this encounter (statuses as of 11/29/2023) Immunizations Name Administration Dates Next Due HPV Vaccine, 4-Valent 06/19/2008,02/13/2008,01/2008 Meningococcal Conjugate Vacc ine (Menactra/Menveo) 12/13/2007 Seasonal Influenza, Split, I IV3, With Preserve, Inj 08/01/2012,07/14/2011,07/15/2010,07/02,08/24/2008,07/12/2007 TDAP (age 10 and older)(Boostrix) 12/21/2019 TDAP (age 11 and older)(Adacel) 09/18/2015 Varicella Vaccine (Chicken Pox) 12/13/2007,11/11 documented as of this encounter Social History Tobacco Use Types Packs/Day Years Used Date Smoking Tobacco: Never Smokeless Tobacco: Never Tobacco Cessation:Counseling Given: Not Answered Alcohol Use Standard Drinks/Week Comments Yes 0 [...] money to get more. Never true 08/28/2023 [place] Depression Scale Answer Date Recorded [place] Depression Scale Total 0 09/06/2023 The thought [...] Sign Reading Time Taken Comments Blood Pressure 102/60 11/29/2023 7:41 AM EST Pulse 96 11/29/2023 7:41 AM EST Temperature 36.7 C (98 F) 11/29/2023 7:41 AM EST Respiratory Rate 18 11/29/2023 7:41 AM EST Oxygen Saturation 100% 11/29/2023 7:41 AM EST Inhaled Oxygen Concentration - - Weight 74.9 kg (165 lb 3.2 oz) 11/29/2023 7:41 A M EST Height 172.7 cm (5' 7.99") 11/29/2023 7:41 AM ES T Body Mass Index 25.13 11/29/2023 7:41 AM EST documented in this encounter Progress Notes * Bryan Styles MD - 11/29/2023 8:03 AM EST Subjective Niki Rosa is a 27 year old female. 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 Ondansetron HCl 8 MG Oral Tablet Take 1 Tablet by mouth in the morning and 1 Tablet at noon and 1 Tablet before bedtime. 40 Tablet 3 Erythromycin 5 MG/GM Ophthalmic Ointment Instill into the left eye 4 times a day for 10 days. Instill thin ribbon 3.5 g 0 Montelukast Sodium 10 MG Oral Tablet (Singulair) Take 1 Tablet by mouth in the morning. 90 Tablet 3 Amoxicillin-Pot Clavulanate 875-125 MG Oral Tablet (Augmentin) Take 1 Tablet by mouth in the morning and 1 Tablet before bedtime. Do all this for 10 days. 20 Tablet 0 No current facility-administered medications for this visit. 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 Negative for activity change, appetite change, chills, diaphoresis, fever and unexpected weight change. HENT: Positive for congestion, facial swelling, postnasal drip, sinus pressure, sore throat and tinnitus. Negative for ear discharge, ear pain, rhinorrhea, sinus pain and sneezing. Eyes: Positive for discharge, redness and itching. Negative for photophobia, pain and visual disturbance. Respiratory: Positive for cough. Negative for chest tightness, shortness of breath and wheezing. Cardiovascular: Negative for chest pain, palpitations and leg swelling. Gastrointestinal: Positive for nausea. Negative for abdominal distention and abdominal pain. Allergic/Immunologic: Positive for environmental allergies. Neurological: Positive for headaches. Negative for dizziness and light-headedness. Psychiatric/Behavioral: Positive for sleep disturbance. Negative for agitation and behavioral problems. Objective BP 102/60 | Pulse 96 | Temp 36.7 C (98 F) (Temporal Artery) | Resp 18 | Ht 1.727 m (5' 7.99") |Wt 74.9 kg (165 lb 3.2 oz) | LMP 07/08/2023 | SpO2 100% | BMI 25.13 kg/m | BSA 1.9 m Physical Exam Constitutional: General: She is not in acute distress. Appearance: Normal appearance. She is not ill-appearing, toxic-appearing or diaphoretic. HENT: Head: Normocephalic and atraumatic. Ears: Comments: Fluid TMs Nose: Congestion present. Eyes: General: Right eye: Discharge present. Left eye: Discharge present. Extraocular Movements: Extraocular movements intact. Comments: B/L conjunctivitis Cardiovascular: Rate and Rhythm: Normal rate and regular rhythm. Pulses: Normal pulses. Heart sounds: Normal heart sounds. No murmur heard. Pulmonary: Effort: Pulmonary effort is normal. No respiratory distress. Breath sounds: Normal breath sounds. No stridor. No wheezing, rhonchi or rales. Chest: Chest wall: No tenderness. Neurological: Mental Status: She is alert and oriented to person, place, and time. Psychiatric: Behavior: Behavior normal. ASSESSMENT/PLAN: Acute conjunctivitis of both eyes, unspecified acute conjunctivitis type (Primary) Chronic maxillary sinusitis Post viral asthma Encounter for supervision of other normal , unspecified trimester Other orders - Montelukast Sodium 10 MG Oral Tablet (Singulair); Take 1 Tablet by mouth in the morning. - Amoxicillin-Pot Clavulanate 875-125 MG Oral Tablet (Augmentin); Take 1 Tablet by mouth in the morning and 1 Tablet before bedtime. Do all this for 10 days. Singulair Saline spray daily And augmentin Bryan Styles MD documented in this encounter Nursing Notes * Nimisha Sellers LPN - 11/29/2023 7:41 AM EST The patient has been properly identified by confirmation of name and date of . Chief Complaint Patient presents with Acute [place] eye, sinus infection documented in this encounter Plan of Treatment Upcoming Encounters Date Type Department Care Team (Late st Contact Info) Description 12/01/2023 9:45 AM EST Imaging Radiology [facility] [address] [place] [address] 12/01/2023 11:30 AM EST Office Visit Gynecology/Obstetrics [facility] [address] [place] [address] Back[place], NEVILLE Benitez [address] [place] [address] Health Maintenance Due Date Last Done Comments [...] of this encounter Visit Diagnoses Diagnosis Acute conjunctivitis of both eyes, unspecified acute conjunctivitis type- Primary Chronic maxillary sinusitis Post viral asthma Intrinsic asthma, unspecified Encounter for supervision of other normal , unspecified trimester documented in this encounter
--- OUTSIDE RECORDS SUMMARY | 2024-04-12 03:36 | External Medical Summary ---
Author Name Unknown Address Unknown Organization K01[facility] - [address] [place] [address] Laboratory Report Ordering Provider Test Date Status HUMBERTO HENDERSON 01/26/2024 14:48:42 Final Observation Date Value Abnormality Reference (Units ) Status Ferritin 01/26/2024 14:48:42 19 13-150 (ng /mL) Final Performing Location [facility] - [address] [place] [address]
--- OUTSIDE RECORDS SUMMARY | 2024-04-12 03:36 | External Medical Summary ---
Author Name Unknown Address Unknown Organization K01:[facility] [place] [facility] [address] [place] [address] Laboratory Report Ordering Provider Test Date Status HUMBERTO HENDERSON 01/26/2024 14:48:42 Final Observation Date Value Abnormality Reference (Units ) Status Creatinine 01/26/2024 14:48:42 0.7 0.5-1.0 (mg/dL) Final Glomerular filtration rate/1.73 sq M.predicted [Volume Rate/Area] in Serum, Plasma or Blood by Creatinine-based formula (CKD-EPI) 01/26/2024 14:48:42 >90 >=60 (mL/min) Final eGFR is calculated based on the CKD-EPI 2020 equation Performing Location [facility] [place] - [address] [place] [address]
--- OUTSIDE RECORDS SUMMARY | 2024-04-12 03:36 | External Medical Summary | Summary of Care ---
Author Name Unknown Organization [facility] Address [address] [facility] [place] [address] Phone [phone] Care Team Providers Care Board Finisher Name Role Phone Unavailable Primary Care Provider Unavailabl e Reason for Visit * Reason Comments Return Visit Encounter Details Date Type Department Care Team (Late st Contact Info) Description 11/02/2023 2:15 PM EST Office Visit Gynecology/Obstetric s [facility] [address] [place] [address] Ema Cheney CRNP [address] [place] [address] Encounter for supervision of other normal , unspecified trimester*; Fourth-degree perineal laceration during delivery Allergies Active Allergy Reactions Criticality Noted Date Comments Sulfa Antibiotics Unknown 04/29/1999 As child documented as of this encounter (statuses as of 11/02/2023) Medications Medication Sig Dispensed Refills Start Date [...] as of this encounter (statuses as of 11/02/2023) Active Problems Problem Noted Date Diagnosed Date [...] as of this encounter (statuses as of 11/02/2023) Resolved Problems Problem Noted Date Diagnosed Date Resolved Date , normal first 08/03/201904/10 Overview: Tdap given today 12/21/19. Vida Nguyen LPN Concussion 01/19/2012 09/24/2017 documented as of this encounter (statuses as of 11/02/2023) Immunizations Name Administration Dates Next Due HPV [...] money to get more. Never true 08/28/2023 [place] Depression Scale Answer Date Recorded [place] Depression Scale Total 0 09/06/2023 The thought [...] Sign Reading Time Taken Comments Blood Pressure 100/68 11/02/2023 2:15 PM EST Pulse - - Temperature - - Respiratory Rate - - Oxygen Saturation - - Inhaled Oxygen Concentration - - Weight 70.3 kg (155 lb) 11/02/2023 2:15 PM EST Height 172.7 cm (5' 7.99") 11/02/2023 2:15 PM ES T Body Mass Index 23.57 11/02/2023 2:15 PM EST documented in this encounter Progress Notes * Ema Cheney CRNP - 11/02/2023 2:44 PM EST 16w5d No concerns. +quickening. No n/v. Had bleeding 2 weeks ago, u/s done and WNL. No bleeding since that time. Anatomy u/s with next visit. NEV[place] Garza * Sharlene Silva LPN - 11/02/2023 2:18 PM EST 16w5d Denies concerns. documented in this encounter Plan of Treatment Upcoming Encounters Date Type Department Care Team (Late st Contact Info) Description 12/01/2023 9:45 AM EST Imaging Radiology [facility] [address] [place] [address] 12/01/2023 11:30 AM EST Office Visit Gynecology/Obstetrics [facility] [address] [place] [address] Back[place], NEVILLE Benitez [address] [place] [address] Scheduled Orders Name Type Priority Associated Diagnoses Orde r Schedule US PREG SINGLE/1ST GEST, 14 WEEKS OR LATER Medical Imaging Routine Encounter for supervision of other normal , unspecified trimester Expected: 12/03/2023 (Approximate), Expires: 12/03/2024 Health Maintenance Due Date Last Done Comments [...] unspecified as to episode of care in documented in this encounter
--- OUTSIDE RECORDS SUMMARY | 2024-04-12 03:36 | External Medical Summary | Summary of Care ---
Author Name Unknown Organization [facility] Address [address] [place] [address] Phone [phone] Care Team Providers Care Mapping Supervisor Name Role Phone Unavailable Primary Care Provider Unavailabl e Reason for Visit * Reason Onset Date Comments Advice 10/13/2023 Pt would like to speak to dr alvarezing she has cough/runny nose stomach pain /yellow mucus/migraine pt is 14 weeks spoke to- klever clarke contact pcp call pt at [phone] Encounter Details Date Type Department Care Team (Late st Contact Info) Description 10/13/2023 Telephone Access Center, [place] [address] [facility] *DO NOT REMOVE THIS DEPARTMENT* [place] [address] Services, Scheduling [address] [place] [address] Advice (Pt would like to speak to dr garrison... Allergies Active Allergy Reactions Criticality Noted Date Comments Sulfa Antibiotics Unknown 04/29/1999 As child documented as of this encounter (statuses as of 01/12/2024) Medications Medication Sig Dispensed Refills Start Date [...] as of this encounter (statuses as of 01/12/2024) Active Problems Problem Noted Date Diagnosed Date Low-lying placenta 12/01/2023 Overview: 1.2 cm from internal os at 20 weeks Encounter for supervision of other normal , unspecified trimester 09/06/2023 Fourth-degree perineal laceration during deliver y 09/06/2023 Overview: 4th degree laceration, forceps delivery. 8lb 11oz baby At [facility] does not want primary c/s, jerry like 39w IOL. 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 Vida Nguyen, ARUN Concussion 01/19/2012 09/24/2017 documented as of this encounter (statuses as of 01/12/2024) Immunizations Name Administration Dates Next Due HPV [...] money to get more. Never true 08/28/2023 [place] Depression Scale Answer Date Recorded [place] Depression Scale Total 0 09/06/2023 The thought [...] encounter Miscellaneous Notes * Telephone Encounter - Ray Parsons OSA - 10/15/2023 10:14 AM EST Called and spoke to pt, states appt no longer needed * Telephone Encounter - Genesis Brasher CRNP - 10/13/2023 10:15 AM EST SCHEDULE ACUTE APPT ANY PROVIDER OR URGENT CARE * Telephone Encounter - Dayna Hopkins OSA - 10/13/2023 7:55 AM EST Pt would like to speak to dr alvarezing she has cough/runny nose stomach pain /yellow mucus/migraine pt is 14 weeks spoke to- klever clarke contact pcp call pt at [phone] documented in this encounter Plan of Treatment Upcoming Encounters Date Type Department Care Team (Late st Contact Info) Description 01/26/2024 1:50 PM EDT Laboratory Laboratory, [facility] [address] [facility] [place] [phone] [facility] [address] [facility] [place] [address] 01/26/2024 2:15 PM EDT Imaging Radiology [facility] 2nd [facility] [place] [address] [facility] [place] [address] 01/26/2024 3:00 PM EDT Office Visit Gynecology/Obstetrics [facility] [address] [facility] [place] [address] Ema Cheney CRNP [address] [place] [address] Health Maintenance Due Date Last Done Comments Pneumococcal Vaccine: Pediatrics (0 to 5 Years) and At-Risk Patients (6 to 64 Years) (1 of 2 - PCV) 1999 Depression Screening 09/01/2022 09/01/2021 *SPIROMETRY ONCE FOR ASTHMA-ADULT 09/03/2022 COVID-19 Vaccine ( season) 2023 Influenza Vaccine (FLU shot) (#1) [...]
--- OUTSIDE RECORDS SUMMARY | 2024-04-12 03:36 | External Medical Summary ---
Author Name Unknown Address Unknown Organization K01:[facility] [place] - [address] [place] [address] Laboratory Report Ordering Provider Test Date Status BEATRIZ,HUMBERTO 01/26/2024 14:48:42 Final Observation Date Value Abnormality Reference (Units ) Status Retic, % (auto) 01/26/2024 14:48:42 2.86 Above high normal 0.80-1.90 (%) Final Reticulocytes, Absolute 01/26/2024 14:48:42 100.1 31.3-100.1 (K/uL) Final Reticulocyte fraction, immature 01/26/2024 14:48:42 15.9 2.5-20.6 (%) Final Reticulocyte HGB 01/26/2024 14:48:42 34.6 29.7-37.4 (pg) Final Performing Location [facility]ORY [facility] [place] - [address] [place] [address]
--- NOTE | 2024-04-12 04:22 | Anesthesia Procedure Note ---
Date of Service April 12, 2024 Anesthesia Post Epidural Note Vital Signs Vital Signs: Temp Pulse Resp BP Pulse Ox O2 Del Method 37.4 C 67 20 118/71 98 Room Air 04/12/24 00:40 04/12/24 04:20 04/12/24 00:40 04/12/24 04:20 04/12/24 00:48 04/12/24 00:40 Pain Intensity Back: Pain Intensity: 2 Notes Mental Status: alert / awake / arousable and participated in evaluation Patient Amnestic to Procedure: No Nausea / Vomiting: adequately controlled Pain: adequately controlled Airway Patency, RR, SpO2: stable & adequate BP & HR: stable & adequate Hydration State: stable & adequate Neuraxial Anesthesia: was administered and sensory block resolved Anesthetic Complications: no major complications apparent and Pt Satisfied with anesthetic care Epidural: Removed without complications and With tip intact
[2024-04-12] MEDS: oxyCODONE/ACETAMINOPHEN 5mg/325mg TAB PO PRN (04:25)
[2024-04-12] MEDS: ceFAZolin 2000MG 2,000 MG/15 ML SYR IV SCH (06:12)
[2024-04-12 06:53] LABS: Hematocrit (blood only) 30.3 % (37.0-47.0); Hemoglobin 10.3 g/dl (12.0-16.0); Mean Corpuscular Hemoglobin 30.3 pg (25.0-34.0); Mean Corpuscular Volume 89.1 fL (80.0-100.0); Mean Platelet Volume 10.3 fL (9.4-12.4); Platelet Count 193 K/uL (130-400); RDW Coefficient of Variation 12.9 % (11.5-14.5); RDW Standard Deviation 41.8 fL (36.4-46.3); White Blood Count 15.27 K/ul (4.8-10.8)
[2024-04-12] MEDS ORDERED: ceFAZolin 2000MG 2,000 MG/15 ML SYR IV SCH (07:00)
[2024-04-12] MEDS: FERROUS SULFATE 325 MG TAB PO SCH (07:17)
[2024-04-12] MEDS: DOCUSATE SODIUM 100 MG CAP PO SCH (07:17)
[2024-04-12] MEDS: PRENATAL VITAMIN 1 TAB PO SCH (07:17)
--- NOTE | 2024-04-12 08:39 | Obstetrical Progress Note ---
Date of Service April 12, 2024 Assessment & Plan Admission and Anticipated Discharge Date Admission Date: April 11, 2024 Subjective Patient is seen and examined. She feels well, no complaints other than discomfort from [place]. Tolerating regular diet with out N&V Bleeding is minimal No fever/ chills/ CP/ SOB/ N&V/ Leg pain Breast feeding without problems Vital Signs Temp Pulse Pulse Resp BP BP Pulse Ox 04/12/24 07:21 73 04/12/24 07:21 112/78 04/12/24 04:20 37.0 C 18 04/12/24 04:20 67 04/12/24 04:20 118/71 04/12/24 00:50 92 H 134/60 04/12/24 00:48 93 H 98 04/12/24 00:43 94 H 97 04/12/24 00:40 37.4 C 92 H 20 134/60 98 04/12/24 00:40 37.4 C 20 04/12/24 00:38 86 97 04/12/24 00:35 87 128/61 04/12/24 00:33 92 H 97 04/12/24 00:28 98 H 97 04/12/24 00:23 89 99 04/12/24 00:20 100 H 135/62 04/12/24 00:18 87 96 04/12/24 00:14 102 H 92 04/12/24 00:13 96 H 99 04/12/24 00:10 18 04/12/24 00:08 94 H 100 04/12/24 00:05 96 H 138/63 04/12/24 00:04 93 H 91 04/12/24 00:03 88 96 04/11/24 23:58 90 100 04/11/24 23:53 91 H 100 04/11/24 23:48 94 H 100 04/11/24 23:43 94 H 99 04/11/24 23:42 87 93 04/11/24 23:40 20 04/11/24 23:38 89 100 04/11/24 23:36 91 H 150/63 H 04/11/24 23:33 94 H 90 04/11/24 23:28 86 100 04/11/24 23:25 20 04/11/24 23:24 86 90 04/11/24 23:23 84 94 04/11/24 23:19 83 91 04/11/24 23:18 82 98 04/11/24 23:13 92 H 100 04/11/24 23:10 20 04/11/24 23:10 86 91 04/11/24 23:08 93 H 100 04/11/24 23:05 93 H 155/70 H 04/11/24 23:03 94 H 100 04/11/24 23:02 96 H 92 04/11/24 22:58 96 H 100 04/11/24 22:57 98 H 89 L 04/11/24 22:56 103 H 165/93 H 04/11/24 22:55 18 04/11/24 22:53 100 H 100 04/11/24 22:51 90 94 04/11/24 22:48 89 100 04/11/24 22:43 113 H 95 04/11/24 22:42 94 H 80 L 04/11/24 22:40 20 04/11/24 22:38 90 100 04/11/24 22:36 88 93 04/11/24 22:34 142 H 159/85 H 04/11/24 22:33 91 H 188/132 H 96 04/11/24 22:30 87 91 04/11/24 22:28 85 96 04/11/24 22:26 83 128/59 L 04/11/24 22:24 81 94 04/11/24 22:23 81 100 04/11/24 22:18 94 H 100 04/11/24 22:13 87 100 04/11/24 22:11 89 123/60 04/11/24 22:08 99 04/11/24 22:08 99 H 04/11/24 22:08 100 H 94 04/11/24 22:03 128 H 92 04/11/24 21:58 89 100 04/11/24 21:57 121 H 92 04/11/24 21:53 88 100 04/11/24 21:50 92 H 86 L 04/11/24 21:48 89 100 04/11/24 21:43 77 100 04/11/24 21:38 76 100 04/11/24 21:36 81 122/61 04/11/24 21:33 82 100 04/11/24 21:30 20 04/11/24 21:30 20 04/11/24 21:28 85 100 04/11/24 21:25 36.4 C L 04/11/24 21:23 95 H 100 04/11/24 21:21 97 H 87 L 04/11/24 21:20 100 H 109/63 04/11/24 21:18 97 H 100 04/11/24 21:13 100 04/11/24 21:13 86 04/11/24 21:13 92 H 91 04/11/24 21:08 67 100 04/11/24 21:06 70 108/62 04/11/24 21:03 73 100 04/11/24 21:00 20 04/11/24 21:00 20 04/11/24 20:58 80 100 04/11/24 20:53 76 100 04/11/24 20:51 74 111/62 04/11/24 20:48 81 100 04/11/24 20:44 92 H 90 04/11/24 20:43 86 100 04/11/24 20:38 92 H 100 O2 Del Method 04/12/24 07:21 04/12/24 07:21 04/12/24 04:20 04/12/24 04:20 04/12/24 04:20 04/12/24 00:50 04/12/24 00:48 04/12/24 00:43 04/12/24 00:40 Room Air 04/12/24 00:40 04/12/24 00:38 04/12/24 00:35 04/12/24 00:33 04/12/24 00:28 04/12/24 00:23 04/12/24 00:20 04/12/24 00:18 04/12/24 00:14 04/12/24 00:13 04/12/24 00:10 04/12/24 00:08 04/12/24 00:05 04/12/24 00:04 04/12/24 00:03 04/11/24 23:58 04/11/24 23:53 04/11/24 23:48 04/11/24 23:43 04/11/24 23:42 04/11/24 23:40 04/11/24 23:38 04/11/24 23:36 04/11/24 23:33 04/11/24 23:28 04/11/24 23:25 04/11/24 23:24 04/11/24 23:23 04/11/24 23:19 04/11/24 23:18 04/11/24 23:13 04/11/24 23:10 04/11/24 23:10 04/11/24 23:08 04/11/24 23:05 04/11/24 23:03 04/11/24 23:02 04/11/24 22:58 04/11/24 22:57 04/11/24 22:56 04/11/24 22:55 04/11/24 22:53 04/11/24 22:51 04/11/24 22:48 04/11/24 22:43 04/11/24 22:42 04/11/24 22:40 04/11/24 22:38 04/11/24 22:36 04/11/24 22:34 04/11/24 22:33 04/11/24 22:30 04/11/24 22:28 04/11/24 22:26 04/11/24 22:24 04/11/24 22:23 04/11/24 22:18 04/11/24 22:13 04/11/24 22:11 04/11/24 22:08 04/11/24 22:08 04/11/24 22:08 04/11/24 22:03 04/11/24 21:58 04/11/24 21:57 04/11/24 21:53 04/11/24 21:50 04/11/24 21:48 04/11/24 21:43 04/11/24 21:38 04/11/24 21:36 04/11/24 21:33 04/11/24 21:30 04/11/24 21:30 04/11/24 21:28 04/11/24 21:25 04/11/24 21:23 04/11/24 21:21 04/11/24 21:20 04/11/24 21:18 04/11/24 21:13 04/11/24 21:13 04/11/24 21:13 04/11/24 21:08 04/11/24 21:06 04/11/24 21:03 04/11/24 21:00 04/11/24 21:00 04/11/24 20:58 04/11/24 20:53 04/11/24 20:51 04/11/24 20:48 04/11/24 20:44 04/11/24 20:43 04/11/24 20:38 Lab Results 04/11/24 04/12/24 Range/Units 13:49 06:12 WBC 9.95 15.27 H (4.8-10.8) K/ul RBC 3.63 L 3.40 L (4.20-5.40) M/uL Hgb 10.9 L 10.3 L (12.0-16.0) g/dl Hct 32.1 L 30.3 L (37.0-47.0) % MCV 88.4 89.1 (80.0-100.0) fL MCH 30.0 30.3 (25.0-34.0) pg MCHC 34.0 34.0 (32.0-36.0) g/dL RDW Std Deviation 42.6 41.8 (36.4-46.3) fL RDW Coeff of Nguyen 13.1 12.9 (11.5-14.5) % Plt Count 234 193 (130-400) K/uL MPV 10.1 10.3 (9.4-12.4) fL Blood Type O Positive Antibody Screen NEGATIVE Crossmatch See Detail PE: General: Alert, orientedx3, NAD Abd: soft, NT, fundus firm, below Umbilicus Perineum intact, no more bleeding from [place], deflated and removed Ext; NT, no edema AP: 28 yo s/p , ppd# 1, s/p pp hemorrhage VSS Afebrile doing well H&H stable Continue routine care All questions were answered D/C home tomorrow Results & Data Vital Signs (Past 12 Hours) Vital Signs Temp Pulse Pulse Resp BP BP Pulse Ox 04/12/24 07:21 73 04/12/24 07:21 112/78 04/12/24 04:20 37.0 C 18 04/12/24 04:20 67 04/12/24 04:20 118/71 04/12/24 00:50 92 H 134/60 04/12/24 00:48 93 H 98 04/12/24 00:43 94 H 97 04/12/24 00:40 37.4 C 92 H 20 134/60 98 04/12/24 00:40 37.4 C 20 04/12/24 00:38 86 97 04/12/24 00:35 87 128/61 04/12/24 00:33 92 H 97 04/12/24 00:28 98 H 97 04/12/24 00:23 89 99 04/12/24 00:20 100 H 135/62 04/12/24 00:18 87 96 04/12/24 00:14 102 H 92 04/12/24 00:13 96 H 99 04/12/24 00:10 18 04/12/24 00:08 94 H 100 04/12/24 00:05 96 H 138/63 04/12/24 00:04 93 H 91 04/12/24 00:03 88 96 04/11/24 23:58 90 100 04/11/24 23:53 91 H 100 04/11/24 23:48 94 H 100 04/11/24 23:43 94 H 99 04/11/24 23:42 87 93 04/11/24 23:40 20 04/11/24 23:38 89 100 04/11/24 23:36 91 H 150/63 H 04/11/24 23:33 94 H 90 04/11/24 23:28 86 100 04/11/24 23:25 20 04/11/24 23:24 86 90 04/11/24 23:23 84 94 04/11/24 23:19 83 91 04/11/24 23:18 82 98 04/11/24 23:13 92 H 100 04/11/24 23:10 20 04/11/24 23:10 86 91 04/11/24 23:08 93 H 100 04/11/24 23:05 93 H 155/70 H 04/11/24 23:03 94 H 100 04/11/24 23:02 96 H 92 04/11/24 22:58 96 H 100 04/11/24 22:57 98 H 89 L 04/11/24 22:56 103 H 165/93 H 04/11/24 22:55 18 04/11/24 22:53 100 H 100 04/11/24 22:51 90 94 04/11/24 22:48 89 100 04/11/24 22:43 113 H 95 04/11/24 22:42 94 H 80 L 04/11/24 22:40 20 04/11/24 22:38 90 100 04/11/24 22:36 88 93 04/11/24 22:34 142 H 159/85 H 04/11/24 22:33 91 H 188/132 H 96 04/11/24 22:30 87 91 04/11/24 22:28 85 96 04/11/24 22:26 83 128/59 L 04/11/24 22:24 81 94 04/11/24 22:23 81 100 04/11/24 22:18 94 H 100 04/11/24 22:13 87 100 04/11/24 22:11 89 123/60 04/11/24 22:08 99 04/11/24 22:08 99 H 04/11/24 22:08 100 H 94 04/11/24 22:03 128 H 92 04/11/24 21:58 89 100 04/11/24 21:57 121 H 92 04/11/24 21:53 88 100 04/11/24 21:50 92 H 86 L 04/11/24 21:48 89 100 04/11/24 21:43 77 100 04/11/24 21:38 76 100 04/11/24 21:36 81 122/61 04/11/24 21:33 82 100 04/11/24 21:30 20 04/11/24 21:30 20 04/11/24 21:28 85 100 04/11/24 21:25 36.4 C L 04/11/24 21:23 95 H 100 04/11/24 21:21 97 H 87 L 04/11/24 21:20 100 H 109/63 04/11/24 21:18 97 H 100 04/11/24 21:13 100 04/11/24 21:13 86 04/11/24 21:13 92 H 91 04/11/24 21:08 67 100 04/11/24 21:06 70 108/62 04/11/24 21:03 73 100 04/11/24 21:00 20 04/11/24 21:00 20 04/11/24 20:58 80 100 04/11/24 20:53 76 100 04/11/24 20:51 74 111/62 04/11/24 20:48 81 100 04/11/24 20:44 92 H 90 04/11/24 20:43 86 100 04/11/24 20:38 92 H 100 04/11/24 20:33 79 99 O2 Del Method 04/12/24 07:21 04/12/24 07:21 04/12/24 04:20 04/12/24 04:20 04/12/24 04:20 04/12/24 00:50 04/12/24 00:48 04/12/24 00:43 04/12/24 00:40 Room Air 04/12/24 00:40 04/12/24 00:38 04/12/24 00:35 04/12/24 00:33 04/12/24 00:28 04/12/24 00:23 04/12/24 00:20 04/12/24 00:18 04/12/24 00:14 04/12/24 00:13 04/12/24 00:10 04/12/24 00:08 04/12/24 00:05 04/12/24 00:04 04/12/24 00:03 04/11/24 23:58 04/11/24 23:53 04/11/24 23:48 04/11/24 23:43 04/11/24 23:42 04/11/24 23:40 04/11/24 23:38 04/11/24 23:36 04/11/24 23:33 04/11/24 23:28 04/11/24 23:25 04/11/24 23:24 04/11/24 23:23 04/11/24 23:19 04/11/24 23:18 04/11/24 23:13 04/11/24 23:10 04/11/24 23:10 04/11/24 23:08 04/11/24 23:05 04/11/24 23:03 04/11/24 23:02 04/11/24 22:58 04/11/24 22:57 04/11/24 22:56 04/11/24 22:55 04/11/24 22:53 04/11/24 22:51 04/11/24 22:48 04/11/24 22:43 04/11/24 22:42 04/11/24 22:40 04/11/24 22:38 04/11/24 22:36 04/11/24 22:34 04/11/24 22:33 04/11/24 22:30 04/11/24 22:28 04/11/24 22:26 04/11/24 22:24 04/11/24 22:23 04/11/24 22:18 04/11/24 22:13 04/11/24 22:11 04/11/24 22:08 04/11/24 22:08 04/11/24 22:08 04/11/24 22:03 04/11/24 21:58 04/11/24 21:57 04/11/24 21:53 04/11/24 21:50 04/11/24 21:48 04/11/24 21:43 04/11/24 21:38 04/11/24 21:36 04/11/24 21:33 04/11/24 21:30 04/11/24 21:30 04/11/24 21:28 04/11/24 21:25 04/11/24 21:23 04/11/24 21:21 04/11/24 21:20 04/11/24 21:18 04/11/24 21:13 04/11/24 21:13 04/11/24 21:13 04/11/24 21:08 04/11/24 21:06 04/11/24 21:03 04/11/24 21:00 04/11/24 21:00 04/11/24 20:58 04/11/24 20:53 04/11/24 20:51 04/11/24 20:48 04/11/24 20:44 04/11/24 20:43 04/11/24 20:38 04/11/24 20:33
[2024-04-12] MEDS: ACETAMINOPHEN 325 MG TAB PO PRN (15:50)
[2024-04-12] MEDS: BENZOCAINE 20% SPRY 85 APPLN/85 GM CAN EXT PRN (18:30)
[2024-04-12] MEDS: bisacodyL 5 MG TABEC PO SCH (20:25)
[2024-04-13 07:31] LABS: Basophils # (auto) 0.03 K/uL (0.00-0.20); Basophils % (auto) 0.3 %; Hematocrit (blood only) 29.4 % (37.0-47.0); Hemoglobin 9.7 g/dl (12.0-16.0); Immature Granulocytes # (auto) 0.11 K/uL (0.01-0.20); Immature Granulocytes % (auto) 1.1 %; Lymphocytes # (auto) 2.09 K/uL (1.20-3.40); Lymphocytes % (auto) 21.7 %; Mean Corpuscular Hemoglobin 30.1 pg (25.0-34.0); Mean Corpuscular Volume 91.3 fL (80.0-100.0); Mean Platelet Volume 10.2 fL (9.4-12.4); Monocytes # (auto) 0.67 K/uL (0.11-0.59); Neutrophils # (auto) 6.63 K/uL (1.40-6.50); Neutrophils % (auto) 68.9 %; Platelet Count 189 K/uL (130-400); RDW Coefficient of Variation 13.3 % (11.5-14.5); RDW Standard Deviation 44.1 fL (36.4-46.3); Red Blood Count 3.22 M/uL (4.20-5.40); White Blood Count 9.63 K/ul (4.8-10.8)
--- NOTE | 2024-04-13 09:49 | Obstetrical Progress Note ---
Date of Service April 13, 2024 Assessment & Plan Admission and Anticipated Discharge Date Admission Date: April 11, 2024 Subjective Patient is seen and examined. She feels well, no complaints. Ambulating without dizziness Voiding without difficulty Tolerating regular diet with out N&V Bleeding is minimal No fever/ chills/ CP/ SOB/ N&V/ Leg pain Bottle feeding without problems Lab Results 04/11/24 04/12/24 04/13/24 Range/Units 13:49 06:12 06:45 WBC 9.95 15.27 H 9.63 (4.8-10.8) K/ul RBC 3.63 L 3.40 L 3.22 L (4.20-5.40) M/uL Hgb 10.9 L 10.3 L 9.7 L (12.0-16.0) g/dl Hct 32.1 L 30.3 L 29.4 L (37.0-47.0) % MCV 88.4 89.1 91.3 (80.0-100.0) fL MCH 30.0 30.3 30.1 (25.0-34.0) pg MCHC 34.0 34.0 33.0 (32.0-36.0) g/dL RDW Std Deviation 42.6 41.8 44.1 (36.4-46.3) fL RDW Coeff of Nguyen 13.1 12.9 13.3 (11.5-14.5) % Plt Count 234 193 189 (130-400) K/uL MPV 10.1 10.3 10.2 (9.4-12.4) fL Immature Gran % (Auto) 1.1 % Neut % (Auto) 68.9 % Lymph % (Auto) 21.7 % Mcdonough % (Auto) 7.0 % Eos % (Auto) 1.0 % Baso % (Auto) 0.3 % Neut # (Auto) 6.63 H (1.40-6.50) K/uL Lymph # (Auto) 2.09 (1.20-3.40) K/uL Mcdonough # (Auto) 0.67 H (0.11-0.59) K/uL Eos # (Auto) 0.10 (0.00-0.50) K/uL Baso # (Auto) 0.03 (0.00-0.20) K/uL Immature Gran # (Auto) 0.11 (0.01-0.20) K/uL Blood Type O Positive Antibody Screen NEGATIVE Crossmatch See Detail Vital Signs Temp Pulse Resp BP Pulse Ox O2 Del Method 04/13/24 07:50 37.1 C 77 18 124/85 100 Room Air 04/13/24 02:47 36.5 C 73 18 116/73 99 Room Air 04/12/24 23:13 36.7 C 70 16 100/64 99 Room Air PE: General: Alert, orientedx3, NAD Abd: soft, NT, fundus firm, below Umbilicus Perineum intact, Lochia rubra minimal Ext; NT, no edema AP: 28 yo s/p , ppd# 2 VSS Afebrile doing well H&H stable Continue routine care All questions were answered D/C home , f/u in office Results & Data Vital Signs (Past 12 Hours) Vital Signs Temp Pulse Resp BP Pulse Ox O2 Del Method 04/13/24 07:50 37.1 C 77 18 124/85 100 Room Air 04/13/24 02:47 36.5 C 73 18 116/73 99 Room Air 04/12/24 23:13 36.7 C 70 16 100/64 99 Room Air
== END 2024-04-13 17:05 | disposition home health service (06) | DRG 807 ==
LOC: OPB 12:39 → 4S1 12:42 → 4E2 04-12 09:50
DX: Z37.0 Single live birth; Z88.2 Allergy status to sulfonamides; O42.02 Full-term premature rupture of membranes, onset of labor within 24 hours of rupture; Z3A.39 39 weeks gestation of pregnancy; O99.824 Streptococcus B carrier state complicating childbirth; O70.1 Second degree perineal laceration during delivery